=== PATIENT | male | born 1955 ===

== ENCOUNTER 2020-09-27 15:04 | Inpatient (IN) | payer MEDICARE, SELFPAY ==
[2020-09-27] VITALS (17 sets, daily range): BP systolic 92–190; BP diastolic 55–97; PULSE 78–115; RESP 16–39; TEMP 36.9–37.2; O2SAT 76–95; BMI 29.7
[2020-09-27 16:08] LABS: ABG PCO2 31.9 mmHg (35-45); ABG PH Result 7.42 (7.35-7.45); Alveolar-Arterial Oxygen Gradi 79.3 mmHg (5-10); Arterial Blood Gas Hematocrit 42.4 % (42-52); Base Excess ABG -3.1 mmol/L (-2.0-2.0); Blood Gas Allen Test Pos; Blood Gas Sample Site Radial, right; Blood Gas Sample Type Arterial; Carboxyhemoglobin 0.7 %THgb (0.4-20.1); HCO3 ABG 20.5 mmol/L (22-26); HGB O2 Sat 84.8 % (95-100); Ionized Calcium Level - ABG 1.1 mmol/L (1.1-1.4); Methemoglobin 0.8 % (0.4-1.5); Oxygen Device BIPAP; PO2 ABG 51.8 mmHg (80.0-100.0); Potassium Level - ABG 3.9 mmol/L (3.5-5.0); Total Hemoglobin 13.8 g/dL (14-18)
--- NOTE | 2020-09-27 16:16 | PM.HP ---
Providers/Chief Complaint Admitting Physician: Breanna Rodriguez History of Present Illness 65-year-old male with a past medical history significant for hypertension, dyslipidemia and diabetes mellitus who was recently diagnosed with COVID-19 infection requiring admission to [facility] on 09/26 for hypoxic respiratory failure. patient was reported to have oxygen saturation in low 70s for which he was placed on 4 L however in the next 24 hours he progressively worsened. Noted to have increased work of breathing and high-flow O2 requirements. He was initiated on remdesivir of which she had received a loading dose on 09/26 and 2nd day dose n 09/27 per tranfering physician. he was also empirically started on azithromycin and cefdinir. Chest x-ray had showed findings consistent with COVID-19 pneumonia. And laboratory workup in review appeared to be stable except D-dimer which was above 7. he was empirically started on Eliquis 5 mg oral twice daily. Due to progressive decline patient was transferred to [facility] ICU. Upon arrival patient was found to be hypoxic ( sats in 70s) and in respiratory distress. He was immediately placed on BiPAP with Fio2 of 100% after which he gradually improved. arterial blood gases were obtained which showed a pH of 7.42, pCO2 of 31.9, PO2 of 51.8 and bicarb 20.5. Laboratory workup on arrival was repeated which showed a WBC of 7.0, hemoglobin 12.8, hematocrit 38.9 and a platelet count of 151. sodium 130, potassium 4.0, chloride 95, bicarb 20, BUN 13 and creatinine is 0.7. Lactic acid of 1.7. LFTs were within normal limits. Procalcitonin was 0.55. CTA chest was ordered stat and pending at the time my dictation. Review of Systems General: Reports: ROS unobtainable due to medical condition Medications/Allergies Allergies Allergy/AdvReac Type Severity Reaction Status Date / Time No Known Allergies Allergy Verified 09/27/20 18:50 PFSH Acute PFSH: Social History (Updated 09/27/20 @ 19:42 by Breanna Rodriguez MD) Smoking and tobacco status: unknown if ever smoked Alcohol intake: never Substance/Drug Use: never Vitals/I&O/Wt Last Vital Signs Temp 98.7 F 09/27/20 15:05 Pulse 100 09/27/20 16:00 Resp 39 H 09/27/20 16:00 BP 150/82 09/27/20 16:00 Pulse Ox 92 09/27/20 16:00 Weight last 48 hrs Weight 96.615 kg Physical Exam Narrative: EXAM NARRATIVE: General- stable on BiPAP HEENT- grossly unremarkable Chest- slightly labored respiration, accessory muscle use CVS- sinus tachycardia Abdomen- appeared nondistended Extremities- no edema Data : 09/27/20 14:40 09/27/20 14:40 A&P Assessment and plan (1) Acute respiratory failure with hypoxia: Status: Acute (2) Pneumonia due to COVID-19 virus: Status: Acute (3) Dyslipidemia: Status: Acute (4) Diabetes mellitus: Status: Acute (5) Hypertension: Status: Acute Acute hypoxic respiratory failure due to COVID-19 pneumonia - Continue BiPAP at current settings however wean FiO2 as tolerated - Continue remdesivir 100 mg IV daily times additional 3 days - CT chest PE protocol ordered stat-pending - Initiate Decadron 6 mg IV daily times 10 days - Check ferritin, CRP in a.m. - Procalcitonin 0.55. - Unlikely to have secondary bacterial infection however reassess after CTA of chest - Will continue Eliquis 5 mg PO BID - ABG and chest x-ray in AM - Continue droplet precautions - Unfortunately patient is high risk for intubation Diabetes mellitus - Sliding scale insulin - QACHS BS checks - Will add lantus Hypertension - Norvasc 10 mg PO daily Gi ppx - Protonix DVT ppx - Eliquis 5 mg PO daily Attestations Medical Necessity Statement*: Anticipate over 2 midnights stay in hospital for treatment and evaluation of COVID-19 pneumonia. Time Spent in Patient Care: Greater than 35 minutes (>than 50% of time spent in counselling and/or direct pt care on unit). Critical Care Time: Critical Care Time (min): 55 Coding Level of Care Code Acute Hvac Operations Technician for [facility] Fwd Diagnoses Acute respiratory failure with hypoxia J96.01 Pneumonia due to COVID-19 virus U07.1; J12.89 Dyslipidemia E78.5 Diabetes mellitus E11.9 Hypertension I10
--- NOTE | 2020-09-27 16:17 | PC.NURSE ---
Pt arrived at 1425 per ambulance cart. Vital signs are: 1425 147/85 110 32 81% 1430 142/92 111 43 92% 1445 136/78 106 35 87% 1500 127/77 98 31 91 see worklist after this for vitals
[2020-09-27 16:56] LABS: Basophils % 0.3 %; Hematocrit 38.9 % (42.0-52.0); Hemoglobin 12.8 g/dL (11.7-16.6); Lymphocytes # 0.2 10^3/uL (0.8-4.8); Lymphocytes % 3.4 %; Mean Corpuscular HGB Conc 32.9 g/dL (30.0-36.0); Mean Corpuscular Hemoglobin 28.1 pg (28.0-34.0); Mean Corpuscular Volume 85.5 fL (80-94); Mean Platelet Volume 11.8 fL (7.4-10.4); Monocytes # 0.2 10^3/uL (0.2-0.9); Monocytes % 2.6 %; Neutrophils # 6.52 10^3/uL (1.8-7.7); Neutrophils % 93.4 %; Nucleated Red Blood Cells % 0 %; Platelet Count 151 10^3/cmm (130-400); Red Blood Count 4.55 10^6/uL (4.1-5.3); Red Cell Distribution Width 13.1 % (12.1-15.1)
[2020-09-27 17:08] LABS: INR 1.15 (0.8-1.2)
[2020-09-27 17:26] LABS: Slide Review Slide Review Perform
[2020-09-27 17:55] LABS: Lactic Sepsis W/Reflex 1.7 mmol/L (0.5-2.2)
[2020-09-27] MEDS: dexamethasone 4 mg/mL INJ 6 MG IVP (18:00)
[2020-09-27] MEDS: apixaban 5 mg Tablet PO (18:07)
[2020-09-27 18:24] LABS: Procalcitonin 0.55 ng/mL (0-0.5)
[2020-09-27 18:35] LABS: Alanine Aminotransferase 35 U/L (0-41); Albumin Level 3.2 g/dL (3.5-5.2); Alkaline Phosphatase 76 IU/L (40-130); Aspartate Amino Transferase 39 U/L (0-40); Blood Urea Nitrogen 13 mg/dL (8-23); Calcium 8.9 mg/dL (8.5-10.5); Carbon Dioxide 20 mmol/L (22-29); Chloride 95 mmol/L (98-107); Globulin 3.2 g/dL (1.3-4.6); Glomerular Filtration Rate 113.5 mL/min (90-130); Glucose 256 mg/dL (65-115); Osmolality Calculated 279 mOsm/kg (285-295); Sodium 130 mmol/L (136-145); Total Bilirubin 0.5 mg/dL (0.15-1.2); Total Protein 6.4 g/dL (6.6-8.7)
[2020-09-27 18:38] LABS: Glucose Point of Care 174 mg/dL (70-110)
[2020-09-27] MEDS: rocuronium 10 mg/mL INJ 5mL 120 MG IV (20:05)
[2020-09-27] MEDS: propofol 1,000 MG/100 ML INJ 20.3 MG IV (20:15)
--- NOTE | 2020-09-27 20:15 | XRR_ITS ---
PROCEDURE INFORMATION: Exam: XR Chest, 1 View Exam date and time: 09/27/2020 9:44 PM Age: 65 years old Clinical indication: Device placement; Ett placement (vent status); Additional info: Intubate TECHNIQUE: Imaging protocol: XR of the chest Views: 1 view. COMPARISON: No relevant prior studies available. FINDINGS: Tubes, catheters and devices: An endotracheal tube is present with its tip 2 cm above the tiburcio. Lungs: There is bilateral pulmonary consolidation especially on the left side and predominantly in the lung bases. This may represent a bilateral pneumonia. Pleural space: Unremarkable. No pleural effusion. No pneumothorax. Heart/Mediastinum: Unremarkable. No cardiomegaly. Bones/joints: Unremarkable. XR/XR chest 1V portable [id number] IMPRESSION: 1. The tip of the endotracheal tube is 2 cm above the tiburcio. 2. Bilateral pulmonary consolidation especially on the left side most likely due to bilateral pneumonia.
--- NOTE | 2020-09-27 20:46 | ECG_ITS ---
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 Measurements Intervals [place] Rate: 109 P: 50 UT: 133 QRS: -1 QRSD: 94 T: 24 QT: 302 QTc: 407 Interpretive Statements SINUS TACHYCARDIA POSSIBLE LEFT ATRIAL ENLARGEMENT [-0.1mV P WAVE IN V1/V2] No previous ECG available for comparison Electronically Signed On 10-01-2020 10:11:17 DESK LIEUTENANT by Ivet Whitehead M.D. [id number]
[2020-09-27 21:00] LABS: Glucose Point of Care 213 mg/dL (70-110)
[2020-09-27 21:16] LABS: ABG PCO2 60.2 mmHg (35-45); ABG PH Result 7.21 (7.35-7.45); PO2 ABG 54.2 mmHg (80.0-100.0)
[2020-09-27 21:17] LABS: Base Excess ABG -4.5 mmol/L (-2.0-2.0); Blood Gas Allen Test positive; Blood Gas Vent Mode PC; HCO3 ABG 24.4 mmol/L (22-26); Oxygen Device vent; Oxygen Saturation ABG 78.8; Potassium Level - ABG 4.1 mmol/L (3.5-5.0)
[2020-09-27 21:18] LABS: Arterial Blood Gas Hematocrit 43.3 % (42-52); Carboxyhemoglobin 0.8 %THgb (0.4-20.1)
[2020-09-27 21:31] LABS: Glucose Point of Care 279 mg/dL (70-110)
--- NOTE | 2020-09-27 21:47 | PC.NURSE ---
New Orders: MD Simeon gave v/o for Fentanyl drip to be increased to 100mcg, then again to 150mcg. Propofol drip was to be increased up to 50, and a Versed drip was initiated at 2mg/hr to achieve deep sedation.
--- NOTE | 2020-09-27 23:00 | XRR_ITS ---
PROCEDURE INFORMATION: Exam: XR Chest, 1 View Exam date and time: 09/27/2020 11:03 PM Age: 65 years old Clinical indication: Device placement; Other: Central line placement; Patient HX: Covid TECHNIQUE: Imaging protocol: XR of the chest Views: 1 view. COMPARISON: CR XR chest 1V portable [id number] 09/27/2020 8:46 PM FINDINGS: Tubes, catheters and devices: An endotracheal tube is present in satisfactory position. A right jugular venous catheter is present with its tip projecting on the SVC. Lungs: The left side of the chest is not completely projected on the film. Extensive infiltrates are present in the lung bases. . Pleural space: No pleural effusion or pneumothorax is seen. Heart/Mediastinum: Unremarkable. No cardiomegaly. Bones/joints: Unremarkable. Soft tissues: Otherwise unremarkable XR/XR chest 1V portable [id number] IMPRESSION: 1. Satisfactory position of the endotracheal tube and central venous catheter. 2. Bibasilar pulmonary infiltrates similar to previous study.
[2020-09-28] VITALS (55 sets, daily range): BP systolic 83–115; BP diastolic 49–68; PULSE 66–85; RESP 18–471; TEMP 36.6–37.2; O2SAT 83–98; BMI 29.7
[2020-09-28] MEDS: cisatracurium 100 MG in sodium chloride 0.9% 50 ML 11.6 MG IV ×2 (00:13→20:06)
[2020-09-28] MEDS: propofol 1,000 MG/100 ML INJ 14.5 MG IV ×4 (00:14→20:29)
--- NOTE | 2020-09-28 00:14 | PM.CONSULT ---
Providers/Reason For Consult Consulting Physican/Specialty*: Shabbir Hendrix MD/ Pulmonary Critical care Reason for Consult*: ARDS secondary to hypoxic respiratory failure due to COVID-19 pneumonia Requesting Ganeshan: Hanna Dewitt Attending Physician: Breanna Rodriguez History of Present Illness History of Present Illness Ashutosh Brandt is a 65 year old male past medical history of hypertension, dyslipidemia, diabetes mellitus recently diagnosed with COVID-19 infection initially admitted to [facility] on 09/26/2020 for hypoxic respiratory failure, requiring 4 L nasal cannula. Patient deteriorated over the next 24 hours and noted to have increased work of breathing and increasing high flow oxygen requirements. He was started on remdesivir on 09/26/2020 and transferred to [facility] on 09/27/2020. Initial labs normal except D-dimer 507 and so started on Eliquis 5 mg twice daily. Upon arrival to [facility] ED patient was found to be hypoxic with saturations in 70s and was after being on arrival for BiPAP he was intubated this evening. Pulmonary critical care consult called for vent management due to critical nature of ARDS secondary to hypoxic respiratory failure. Patient is on pressure control ventilation with PIP 30, plateau pressures 28, PEEP of 12, respiratory rate 14 and sedated with propofol 30 and fentanyl 50 GTT. Patient was clearly overbreathing the vent and so increased sedation propofol to 50, fentanyl to 150 and later added Versed 3 mg sequentially. Meanwhile blood pressure maps dropped to 60s. Placed a right IJ central line and right radial arterial line and started on Levophed. Once blood pressure stabilized with maps greater than 65 started weaning down propofol. Meanwhile patient saturations were ranging between 75-85 on 100% FiO2 and PEEP of 16. Decision was made to adequately sedate and paralyzed with Nimbex drip and prone the patient. Review of Systems General: Reports: 10 or more systems reviewed and unremarkable except in HPI and below, ROS unobtainable due to endotracheal tube, ROS unobtainable due to medical condition and ROS unobtainable due to mental status Meds/Allergies Home Medications and Allergies Home Medications Medication Instructions Recorded Confirmed Last Taken Type amlodipine 10 mg PO DAILY 09/28/20 09/28/20 Unknown History atorvastatin 10 mg PO DAILY 09/28/20 09/28/20 Unknown History losartan 50 mg PO DAILY 09/28/20 09/28/20 Unknown History metformin 1,000 mg PO BID 09/28/20 09/28/20 Unknown History methylprednisolone See Rx Instructions .ROUTE .COMPLEX 09/28/20 09/28/20 Unknown History Allergies Allergy/AdvReac Type Severity Reaction Status Date / Time No Known Allergies Allergy Verified 09/27/20 18:50 Current Medications Current Medications Generic Name Dose Route Start Last Admin Trade Name Freq PRN Reason Stop Dose Admin Amlodipine Besylate 10 mg 09/27/20 20:00 09/27/20 20:45 Amlodipine 10 Mg Tablet PO Not Given DAILY JAYSON Apixaban 5 mg 09/27/20 18:00 09/27/20 18:07 Apixaban 5 Mg Tablet PO 5 mg BID JAYSON Administration Dexamethasone 6 mg 09/27/20 16:30 09/27/20 18:00 Dexamethasone 4 Mg/Ml Inj IVP 10/07/20 16:29 6 mg Q24H JAYSON Administration Propofol 1,000 mg in 100 mls @ 0 mls/hr 09/27/20 20:00 09/27/20 21:40 Diprivan IV 50 mcg/kg/min .Q0M JAYSON 29 mls/hr Titration Protocol Per Protocol Fentanyl 1,000 mcg/ Sodium 100 mls @ 0 mls/hr 09/27/20 20:30 09/27/20 21:43 Chloride IV 150 mcg/hr .Q0M JAYSON 15 mls/hr Titration Protocol Per Protocol Midazolam HCl 100 mg/ Sodium 100 mls @ 0 mls/hr 09/27/20 21:45 09/27/20 22:08 Chloride IV 2 mg/hr .Q0M JAYSON 2 mls/hr Administration Protocol Per Protocol Norepinephrine Bitartrate 4 mg 254 mls @ 0 mls/hr 09/27/20 22:15 09/27/20 22:20 / Dextrose IV 2 mcg/min .Q0M JAYSON 7.6 mls/hr Administration Protocol Per Protocol Cisatracurium Besylate 100 mg/ 100 mls @ 0 mls/hr 09/27/20 22:30 09/28/20 00:13 Sodium Chloride IV 2 mcg/kg/min CONT JAYSON 11.6 mls/hr Administration Protocol Titrate Insulin Aspart 0 unit 09/27/20 18:00 09/27/20 21:04 Insulin Aspart 100 Unit/1 Ml SUBCUT 6 unit WM&BEDTIME JAYSON Administration Protocol PFSH Acute PFSH: Social History Smoking and tobacco status: unknown if ever smoked Alcohol intake: never Substance/Drug Use: never Vitals/I&O/Wt Last Vital Signs Temp 98.4 F 09/27/20 17:00 Pulse 97 09/27/20 22:00 Resp 20 H 09/27/20 22:26 BP 93/55 09/27/20 22:00 Pulse Ox 76 L 09/27/20 22:00 09/27/20 09/27/20 09/28/20 14:59 22:59 06:59 Intake Total 93.966 / 93.966 Output Total 450 / 450 Balance -356.034 / -356.034 Weight last 48 hrs Weight 213 lb 6.4 oz Weight 213 lb Physical Exam Narrative: EXAM NARRATIVE: PHYSICAL EXAM: General: lying in bed, sedated and intubated. HEENT:NCAT, PERRLA, EOMI Neck: Supple Lungs: Clear, Heart: s1/s2, RRR Abd: soft, NT, ND, BS + Normoactive Extremities: No edema OUTBOUND TELEMARKETER: sedated and limited OUTBOUND TELEMARKETER exam possible. SKIN: no rash LDA: # CVC: Right IJ 09/27/2020 # Turner: 09/26/2020 # A line: Right radial art line 09/27/2020 A&P Assessment and plan (1) Pneumonia due to COVID-19 virus: Status: Acute (2) Acute respiratory failure with hypoxia: Status: Acute (3) Acute respiratory distress syndrome (ARDS) due to 2019 novel coronavirus: Status: Acute (4) Diabetes mellitus: Status: Acute Qualifiers: Diabetes mellitus complication status: with other specified complication Diabetes mellitus long-term insulin use: unspecified watermelon inspector insulin use status Diabetes mellitus type: type 2 Qualified Code(s): E11.69 - Type 2 diabetes mellitus with other specified complication (5) Hypertension: Status: Acute Qualifiers: Hypertension type: unspecified Qualified Code(s): I10 - Essential (primary) hypertension (6) Difficult ventilator weaning: Status: Acute 65 year old male past medical history of hypertension, dyslipidemia, diabetes mellitus recently diagnosed with COVID-19 infection admitted to viral ICU for management of acute hypoxemic respiratory failure secondary to acute respiratory distress syndrome due to COVID-19 pneumonia requiring intubation and mechanical ventilation. NEURO: -Currently deeply sedated on drips fentanyl 150 MCG/hr, Versed 2 mg/hr, propofol 10 mg/HR, -Paralyzed with Nimbex 1 mg/h drip -Currently in prone positioning -with cushioning in all pressure areas and every 2 hour head turning and extremities PULM: #Acute hypoxic and hypercapneic respiratory failure secondary to ARDS due to COVID pna -Intubated on 09/27/2020 -Post intubation patient was saturating in 70s even on 100% FiO2 and PEEP 14 -Increased sedation and paralyzed and prone -Most recent ABG on pressure control mode 30 PIP, PEEP 14, rate 22, inspiratory time 0.9 seconds and FiO2 70% -7.2 8/48/77/30 6/94% -ABG suggestive of respiratory acidosis due to very noncompliant lungs-adjusting ventilator setting as best as we can to keep plateau pressures less than 30 with permissive hypercapnia -Patient will be turned supine after 16 hours of proning -Recommended continuing paralytics and deep sedation and plan for 2 more proning sessions of 16 hours each alternating with 8 hours of supine sessions -CXR Patchy multifocal airspace disease bilaterally. No effusion. No pneumothorax -Elevated ferritin, please send other inflammatory markers ESR, LDH, CRP and repeat all 4 every 2 days to trend markers of inflammation -Currently on remdesivir and dexamethasone daily -DuoNeb nebulization every 6 hours CVS: -Shock secondary to COVID-19 pneumonia -Currently on Levophed 1 -Recommended to taper down propofol and turn off Levophed if possible -Monitor heart rate and blood pressure -Please send for BNP and echo GI: -N.p.o. -Protonix 40 mg daily for GI prophylaxis RENAL: -Renal functions normal -Electrolytes within normal limits -Send for lactic acid and CK -I/O/N 320/950/-628 -adequate urine output 0.41 mL/kg/h -Continue turner cath -Avoid nephrotoxins -Monitor BUN/creatinine and electrolytes and supplement accordingly to keep k>4, Mg >2 HEM: H&H stable Plts stable,will trend Coags stable ENDO: #Diabetes mellitus -Uncontrolled sugars especially after starting steroids -On scale coverage requiring 30 units in last 8 hours -Would recommend IV insulin and check sugars every 1 hour -Alternately give 10 mg Lantus twice daily with high-dose scale coverage and check sugars every 6 hours ID: #Severe sepsis secondary to COVID pna -WBC 10 K, afebrile -Procalcitonin 0.55 -If patient spikes fever or WBC worsens please send for pancultures -BC,UA,Sputum culture and start on broad-spectrum antibiotics vancomycin and cefepime. Prognosis: Very critical Hospitalist to update family Consult Attestations Medical Necessity Statement: acute hypoxemic respiratory failure requiring intubation and mechanical ventilation secondary to acute respiratory distress syndrome due to COVID-19 pneumonia. Time Spent in Patient Care: Greater than 35 minutes (>than 50% of time spent in counselling and/or direct pt care on unit). Critical Care Time: Critical Care Time (min): 45 Coding Level of Care Code New Pt Acute Electronics Specialist for [facility] Fwd Patient Type New History Comprehensive Exam Comprehensive Medical Decision Making High Complexity Diagnoses Pneumonia due to COVID-19 virus U07.1; J12.89 Acute respiratory failure with hypoxia J96.01 Acute respiratory distress syndrome (ARDS) due to 2019 novel coronavirus U07.1; J80 Diabetes mellitus E11.69 Diabetes mellitus complication status: with other specified complication Diabetes mellitus watermelon inspector insulin use: unspecified long-term insulin use status Diabetes mellitus type: type 2 Hypertension I10 Hypertension type: unspecified Difficult ventilator weaning Z99.11 Time Spent (min) 45
[2020-09-28] MEDS: lidocaine 1% INJ 20 mL INTRADERMA (00:16)
[2020-09-28 00:22] LABS: ABG PCO2 48.7 mmHg (35-45); ABG PH Result 7.26 (7.35-7.45); Arterial Blood Gas Hematocrit 38.6 % (42-52); Base Excess ABG -5.4 mmol/L (-2.0-2.0); Blood Gas Allen Test Pos; HCO3 ABG 21.8 mmol/L (22-26); PO2 ABG 55.8 mmHg (80.0-100.0)
[2020-09-28 00:23] LABS: Blood Gas Operator Identificat HARKR; Blood Gas Vent Mode PC
--- NOTE | 2020-09-28 00:35 | PM.ACPR ---
Procedure/Consent Procedure Narrative: Procedure: Arterial line placement Indication: Need for invasive BP monitoring Consent: Emergent Site: Right radial artery A line Anesthesia: 5 cc 1% lidocaine without epinephrine Description: Area prepped with chlorhexidine and draped in a sterile manner. Catheter inserted using Seldinger technique. Arterial waveform obtained. Ultrasound guidance used: yes. EBL: 5 cc Complications:None Shabbir Swansonr MD Pulmonary, Critical Care Medicine Acute Procedures Arterial Line: Time out performed: Yes
--- NOTE | 2020-09-28 00:35 | PM.ACPR ---
Procedure/Consent Procedure Narrative: Procedure: Central venous access placement Indication: Shock , Vasopressors infusion Hypertrichologist(s): Shabbir Swansonr Consent: Emergent Yes Time out called. [place] precautions applied. Site: right Internal Jugular Vein Catheter: 7 Fr, 20 cm, Triple Lumen Sutured at: 16 cm Anesthesia: 8 cc 1% lidocaine without epinephrine Description: Area prepped with chlorhexidine and draped in a universal sterile manner. The vessel anatomy and patency was examined by ultrasound probe which was covered with sterile probe cover. The needle was inserted into the vessel under ultrasound guidance, after venous blood aspirated the guidewire was inserted through the needle and kept in situ while the needle was removed. Placement of guidewire in the vein and in relation to the adjacent artery was verified by ultrasound. Catheter was then advanced over the guidewire after dilation and guidewire successfully removed.The catheter was sutured to the skin and sterile dressing with chlorhexidine patch placed. Number of attempts: 1 Dilator applied: yes, number of Dilations: 1 Placement Verified by: Blood draw from all ports and Ultrasound exam and Chest Xray EBL: 10 cc Complications: None Ultrasound guidance used: Yes. Images saved: Yes Transverse view longitudinal view longitudinal view compression
--- NOTE | 2020-09-28 00:41 | PM.ACPR ---
Procedure/Consent Procedure Narrative: Was intubated as he was tachypneic for impending respiratory failure, his O2 saturation was 88 to 92% on 100% BiPAP FiO2 Consent was taken from the patient, was updated, FaceTime done with his as well Acute Procedures Intubation: Time out performed: Yes Sedative: etomidate Mg given: 20 Paralytic: rocuronium Mg given: 120 Laryngoscope: fiber optic video scope ET tube size: 7.5 ET tube uncuffed: Yes Tube secured depth (cm): 24 Tube secured location: teeth Tube placement confirmation: visualized tube passing through cords, equal breath sounds bilaterally and no breath sounds over epigastrium Patient tolerated procedure: well
--- NOTE | 2020-09-28 01:12 | PC.NURSE ---
1929- patient was desating on bipap 100% fio2. Dr Dewitt called.2007- patients called spoke with Dr Dewitt patient intubated. Time out preformed at 1999. 2034- patient continues to desat in the 80s called Dr Dewitt patient hypertensive , orders received. 2099- called to updated on patient condition. Dr Hendrix and Manisha RN arrived at 2215 central line time out at 2244, line placed as well as ART line. Patient continued to Desated Dr Hendrix ordered proning and nimbex with train of four. 0100- patient successfully proned all tubes intact. notified of patient condition at 0115. Patint sating 93% bp 95/54, resp18/min temp 98.9 axillary.
--- NOTE | 2020-09-28 01:21 | NUR.SHIFT ---
New Orders: Nimbex 2mg with titration by protocol for paralytic properties. Norepinephrine drip titration based on MAP and overall BP. RN to place turner catheter. 10mL instilled into balloon with immediate 300mL urine output of clear bright yellow urine.
--- NOTE | 2020-09-28 01:25 | PC.NURSE ---
Verbal Consent: Based on increased o2 demand and decreasing SPO2 status of 73% while on Bipap at 100% FIO2. Esdras PERALTA installation manager notified of patient's condition. Decision was then made that it was best for intubation to be completed in attempts to achieve optimal O2 status. MD came to pt's bedside to update patient on overall status, and need for intubation as an emergent action. Patient verbalized understandment. This RN spoke with pt's spouse to update her on the plan of action moving forward to which she gave verbal understandment of the necessity for vent placement. Pt was A&O4 during time of discussion and this RN was able to allow pt to video call before intubation was initiated, with his also speaking to the MD via [employer]. Time out was performed. 7 / ET placed 24 @ Lip. Portable XR to confirm placement. Noel placed. New orders placed in chart.
--- NOTE | 2020-09-28 03:36 | PC.NURSE ---
Unable to insert NG tube.
[2020-09-28 04:42] LABS: ABG PCO2 47.1 mmHg (35-45); ABG PH Result 7.28 (7.35-7.45); Arterial Blood Gas Hematocrit 35.7 % (42-52); Base Excess ABG -4.9 mmol/L (-2.0-2.0); Blood Gas Sample Site ARTLINE; Blood Gas Sample Type Arterial; HCO3 ABG 21.9 mmol/L (22-26); Oxygen Device VENT; PO2 ABG 89.1 mmHg (80.0-100.0)
[2020-09-28 04:42] LABS: Basophils % 0.1 %; Hematocrit 35.1 % (42.0-52.0); Hemoglobin 11.6 g/dL (11.7-16.6); Lymphocytes # 0.3 10^3/uL (0.8-4.8); Lymphocytes % 3.1 %; Mean Corpuscular Hemoglobin 28.6 pg (28.0-34.0); Mean Corpuscular Volume 86.7 fL (80-94); Mean Platelet Volume 10.8 fL (7.4-10.4); Monocytes # 0.4 10^3/uL (0.2-0.9); Neutrophils # 9.95 10^3/uL (1.8-7.7); Neutrophils % 92.3 %; Nucleated Red Blood Cells % 0 %; Platelet Count 169 10^3/cmm (130-400); Red Blood Count 4.05 10^6/uL (4.1-5.3); Red Cell Distribution Width 13.2 % (12.1-15.1); White Blood Count 10.8 10^3/uL (4.0-10.0)
[2020-09-28 05:10] LABS: Alanine Aminotransferase 32 U/L (0-41); Albumin Level 2.6 g/dL (3.5-5.2); Alkaline Phosphatase 66 IU/L (40-130); Anion Gap 15.5 (5-19); Aspartate Amino Transferase 35 U/L (0-40); Blood Urea Nitrogen 25 mg/dL (8-23); Calcium 7.9 mg/dL (8.5-10.5); Carbon Dioxide 22 mmol/L (22-29); Chloride 96 mmol/L (98-107); Globulin 2.9 g/dL (1.3-4.6); Glucose 423 mg/dL (65-115); Osmolality Calculated 290 mOsm/kg (285-295); Potassium 4.5 mmol/L (3.5-5.1); Sodium 129 mmol/L (136-145); Total Bilirubin 0.6 mg/dL (0.15-1.2); Total Protein 5.5 g/dL (6.6-8.7)
[2020-09-28] MEDS: remdesivir 100 MG in sodium chloride 0.9% (100 ml) 100 ML IV (05:47)
[2020-09-28 05:52] LABS: Ferritin 1976 ng/mL (30-400)
--- NOTE | 2020-09-28 07:00 | XRR_ITS ---
PROCEDURE INFORMATION: Exam: XR Chest, 1 View Exam date and time: 09/28/2020 9:35 PM Age: 65 years old Clinical indication: Shortness of breath; Patient HX: Covid 19 line placement; Additional info: Pneumonia TECHNIQUE: Imaging protocol: XR of the chest Views: 1 view. COMPARISON: CR XR chest 1V portable [id number] 09/27/2020 11:14 PM FINDINGS: Tubes, catheters and devices: Intubation with tip 4.9 cm above the tiburcio. Right IJ triple-lumen catheter with tip over the mid SVC. NG tube with tip in the distal stomach or proximal duodenum. Lungs: Patchy dense ground-glass opacities in the central and lower lungs are slightly improved in the left lung and unchanged on the right. Pleural space: Unremarkable. No pleural effusion. No pneumothorax. Heart/Mediastinum: Unremarkable. No cardiomegaly. Bones/joints: Unremarkable. XR/XR chest 1V portable [id number] IMPRESSION: 1. Multilobar pneumonia, slightly improved in the left lung.
[2020-09-28 07:23] LABS: Glucose Point of Care 405 mg/dL (70-110)
--- NOTE | 2020-09-28 08:36 | PC.PHAR ---
pt unable to verify medications due to being intubated-pts is unsure of all his medications-pts states the pt take care of his own medications-entered medications are what has been filled recently that ext med history shows
--- NOTE | 2020-09-28 08:38 | PC.NURSE ---
Neuro check Patient sedated and paralyzed. Bis monitor 50-55.
--- NOTE | 2020-09-28 08:48 | PC.NURSE ---
Repositioned Patient is to be prone until 5pm today. floated arms, legs, and turned face at 0830. RT repositioned tube.
[2020-09-28 11:10] LABS: ABG PH Result 7.21 (7.35-7.45); Arterial Blood Gas Hematocrit 36.5 % (42-52); Base Excess ABG -4.4 mmol/L (-2.0-2.0); Blood Gas Allen Test Pos; Blood Gas Sample Type Arterial; Carboxyhemoglobin 0.7 %THgb (0.4-20.1); HCO3 ABG 24.2 mmol/L (22-26); HGB O2 Sat 96.5 % (95-100); Ionized Calcium Level - ABG 1.1 mmol/L (1.1-1.4); Oxygen Saturation ABG 98.1; Potassium Level - ABG 4.5 mmol/L (3.5-5.0); Total Hemoglobin 11.9 g/dL (14-18)
[2020-09-28 11:11] LABS: Alveolar-Arterial Oxygen Gradi 53.7 mmHg (5-10); Blood Gas Operator Identificat MONRO; Blood Gas Sample Site Not specified; Oxygen Device VENT
[2020-09-28 11:12] LABS: ABG PCO2 60.3 mmHg (35-45)
[2020-09-28 11:44] LABS: Glucose Point of Care 393 mg/dL (70-110)
--- NOTE | 2020-09-28 13:06 | PC.PT ---
Hold evaluation until 09/29. Pt. was on BiPAP and prone when therapist attempted visit.
[2020-09-28] MEDS: ipratropium-albuterol 3 mL Neb INHALATION ×2 (15:50→19:49)
--- NOTE | 2020-09-28 16:41 | PM.PN ---
Subjective Subjective: Interval history: 65-year-old male with a past medical history significant for hypertension, dyslipidemia and diabetes mellitus who was recently diagnosed with COVID-19 infection requiring admission to [facility] on 09/26 for hypoxic respiratory failure. patient was reported to have oxygen saturation in low 70s for which he was placed on 4 L however in the next 24 hours he progressively worsened. Noted to have increased work of breathing and high-flow O2 requirements. He was initiated on remdesivir of which she had received a loading dose on 09/26 and 2nd day dose n 09/27 per tranfering physician. he was also empirically started on azithromycin and cefdinir. Chest x-ray had showed findings consistent with COVID-19 pneumonia. And laboratory workup in review appeared to be stable except D-dimer which was above 7. he was empirically started on Eliquis 5 mg oral twice daily. Due to progressive decline patient was transferred to [facility] viral ICU. Upon arrival patient was found to be hypoxic ( sats in 70s) and in respiratory distress. He was immediately placed on BiPAP with Fio2 of 100% after which he gradually improved. arterial blood gases were obtained which showed a pH of 7.42, pCO2 of 31.9, PO2 of 51.8 and bicarb 20.5. Laboratory workup on arrival was repeated which showed a WBC of 7.0, hemoglobin 12.8, hematocrit 38.9 and a platelet count of 151. sodium 130, potassium 4.0, chloride 95, bicarb 20, BUN 13 and creatinine is 0.7. Lactic acid of 1.7. LFTs were within normal limits. Procalcitonin was 0.55. Subjective 11/29 Patient was intuabted on placed on vent. Started on sedation in addition to nimbex. Was proned. Pulmonary consulted. Vitals/I&O/Wt Last Vital Signs Temp 98.4 F 09/28/20 14:00 Pulse 81 09/28/20 15:49 Resp 22 H 09/28/20 15:49 BP 100/57 09/28/20 14:45 Pulse Ox 92 09/28/20 15:49 09/28/20 09/28/20 09/28/20 06:59 14:59 22:59 Intake Total 227.315 / 321.281 344.083 / 344.083 Output Total 200 / 950 Balance 27.315 / -628.719 344.083 / 344.083 Weight last 48 hrs Weight 96.797 kg Weight 96.797 kg Weight 96.615 kg Physical Exam Narrative: EXAM NARRATIVE: General - Intubated on MV HEENT- ET tube Chest - vented CVS- sinus tachycardia Abdomen- appeared nondistended Extremities- no edema Urinary Catheter Management^: Noel: Cath Placed During This Visit: yes Reason for Continuing Indwelling Catheter: Accurate Measurement of Urinary Output in Critically Ill Patients Urinary Catheter Date of Insertion: 09/27/20 Urinary Catheter Time of Insertion: 20:00 Data : 09/28/20 03:55 09/28/20 03:55 A&P Assessment and plan (1) Acute respiratory failure with hypoxia: Status: Acute (2) Pneumonia due to COVID-19 virus: Status: Acute (3) Dyslipidemia: Status: Acute (4) Diabetes mellitus: Status: Acute Qualifiers: Diabetes mellitus complication status: with other specified complication 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 use status Diabetes mellitus type: type 2 Qualified Code(s): E11.69 - Type 2 diabetes mellitus with other specified complication (5) Hypertension: Status: Acute Qualifiers: Hypertension type: unspecified Qualified Code(s): I10 - Essential (primary) hypertension Acute respiratory distress syndrome due to COVID-19 pneumonia - Pulmonary on consult - Sedation - Paralytic - Remdesivir - Proning - Am CBC, CMP - Pro-calcitonin, CRP, D-dimer, Ferritin in am - Chest x-ray in am - ABG in am - Echo ordered Uncontrolled Diabetes mellitus with hyperglycemia - Insulin gtt - Q1hr BS checks - Repeat labs in AM - BS goals 140 - 180 Hypertension currently hypotensive - Continue levofed Gi ppx - Protonix DVT ppx - Eliquis 5 mg PO daily Attestations Medical Necessity Statement*: Critical condition will require further hospitalization Time Spent in Patient Care: Greater than 35 minutes (>than 50% of time spent in counselling and/or direct pt care on unit). 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
[2020-09-28 17:11] LABS: Glucose Point of Care 323 mg/dL (70-110)
[2020-09-28 17:50] LABS: NT Pro B Type Natriuretic Pept 616 pg/mL (0-125)
[2020-09-28] MEDS: insulin regular-human 250 UNIT in sodium chloride 0.9% 250 ML 7 UNIT IV (18:00)
[2020-09-28 18:43] LABS: Glucose Point of Care 314 mg/dL (70-110)
[2020-09-28] MEDS: dexamethasone 4 mg/mL INJ 6 MG IVP (19:23)
[2020-09-28] MEDS: apixaban 5 mg Tablet PO (19:24)
--- NOTE | 2020-09-28 19:58 | PC.NURSE ---
Patient placed supine at 1730. Continuous BIS monitoring on and working, reading between 50-60. Train of 4 completed multiple times, showing proper sedation and neuro function.
[2020-09-28 20:00] LABS: Glucose Point of Care 299 mg/dL (70-110)
[2020-09-28 21:06] LABS: Glucose Point of Care 268 mg/dL (70-110)
[2020-09-29] VITALS (90 sets, daily range): BP systolic 90–119; BP diastolic 50–70; PULSE 72–93; RESP 18–22; TEMP 36.1–36.9; O2SAT 85–99; BMI 29.7
[2020-09-29] MEDS: ipratropium-albuterol 3 mL Neb INHALATION ×6 (00:10→21:00)
[2020-09-29] MEDS: propofol 1,000 MG/100 ML INJ 14.5 MG IV ×2 (03:49→09:44)
[2020-09-29 04:03] LABS: Blood Gas Sample Site Radial, right; Blood Gas Sample Type Arterial; Ionized Calcium Level - ABG 1.1 mmol/L (1.1-1.4); Oxygen Device VENT
[2020-09-29 04:30] LABS: ABG PH Result 7.33 (7.35-7.45)
[2020-09-29 04:31] LABS: ABG PCO2 43.2 mmHg (35-45); Base Excess ABG -3.3 mmol/L (-2.0-2.0); HCO3 ABG 22.6 mmol/L (22-26)
[2020-09-29 04:32] LABS: Oxygen Saturation ABG 93
[2020-09-29 04:33] LABS: Potassium Level - ABG 3.7 mmol/L (3.5-5.0)
[2020-09-29 04:34] LABS: Arterial Blood Gas Hematocrit 35.6 % (42-52)
[2020-09-29 04:35] LABS: HGB O2 Sat 91.6 % (95-100); Total Hemoglobin 11.6 g/dL (14-18)
[2020-09-29 04:36] LABS: Carboxyhemoglobin 0.6 %THgb (0.4-20.1)
[2020-09-29 04:53] LABS: Basophils % 0.1 %; Hematocrit 33.7 % (42.0-52.0); Hemoglobin 11.3 g/dL (11.7-16.6); Lymphocytes # 0.3 10^3/uL (0.8-4.8); Lymphocytes % 3.1 %; Mean Corpuscular HGB Conc 33.5 g/dL (30.0-36.0); Mean Corpuscular Hemoglobin 28.7 pg (28.0-34.0); Mean Corpuscular Volume 85.5 fL (80-94); Mean Platelet Volume 11.8 fL (7.4-10.4); Monocytes # 0.5 10^3/uL (0.2-0.9); Monocytes % 5.2 %; Neutrophils # 7.86 10^3/uL (1.8-7.7); Neutrophils % 91.1 %; Nucleated Red Blood Cells % 0 %; Platelet Count 173 10^3/cmm (130-400); Red Blood Count 3.94 10^6/uL (4.1-5.3); Red Cell Distribution Width 13.1 % (12.1-15.1); White Blood Count 8.6 10^3/uL (4.0-10.0)
[2020-09-29] MEDS: remdesivir 100 MG in sodium chloride 0.9% (100 ml) 100 ML IV (05:12)
[2020-09-29 05:28] LABS: D Dimer 13.04 ug/mIFEU (0-0.59)
[2020-09-29] MEDS: cisatracurium 100 MG in sodium chloride 0.9% 50 ML 11.6 MG IV ×2 (05:44→14:51)
[2020-09-29 06:11] LABS: Alanine Aminotransferase 30 U/L (0-41); Albumin Level 2.5 g/dL (3.5-5.2); Alkaline Phosphatase 59 IU/L (40-130); Anion Gap 17.8 (5-19); Aspartate Amino Transferase 34 U/L (0-40); Blood Urea Nitrogen 51 mg/dL (8-23); C Reactive Protein 188.8 mg/L (0.0-4.9); Calcium 7.9 mg/dL (8.5-10.5); Carbon Dioxide 20 mmol/L (22-29); Chloride 99 mmol/L (98-107); Glomerular Filtration Rate 30.3 mL/min (90-130); Glucose 172 mg/dL (65-115); Osmolality Calculated 294 mOsm/kg (285-295); Potassium 3.8 mmol/L (3.5-5.1); Sodium 133 mmol/L (136-145); Total Bilirubin 0.4 mg/dL (0.15-1.2); Total Protein 5.5 g/dL (6.6-8.7)
[2020-09-29 06:27] LABS: Glucose Point of Care 121 mg/dL (70-110)
[2020-09-29 06:27] LABS: Glucose Point of Care 138 mg/dL (70-110)
[2020-09-29 06:27] LABS: Glucose Point of Care 151 mg/dL (70-110)
[2020-09-29 06:27] LABS: Glucose Point of Care 222 mg/dL (70-110)
[2020-09-29 06:27] LABS: Glucose Point of Care 149 mg/dL (70-110)
[2020-09-29 06:27] LABS: Glucose Point of Care 173 mg/dL (70-110)
[2020-09-29 06:27] LABS: Glucose Point of Care 189 mg/dL (70-110)
[2020-09-29 06:27] LABS: Glucose Point of Care 202 mg/dL (70-110)
[2020-09-29 06:27] LABS: Glucose Point of Care 154 mg/dL (70-110)
[2020-09-29 06:48] LABS: Lactate Dehydrogenase 439 U/L (135-225)
[2020-09-29 07:04] LABS: Ferritin 3574 ng/mL (30-400)
[2020-09-29 07:19] LABS: Glucose Point of Care 189 mg/dL (70-110)
[2020-09-29 08:20] LABS: Glucose Point of Care 181 mg/dL (70-110)
[2020-09-29 09:44] LABS: Glucose Point of Care 166 mg/dL (70-110)
[2020-09-29] MEDS: zinc gluconate 50 mg Tablet PO (09:44)
[2020-09-29] MEDS: apixaban 5 mg Tablet PO ×2 (09:44→17:51)
[2020-09-29 11:13] LABS: Glucose Point of Care 187 mg/dL (70-110)
[2020-09-29 12:23] LABS: Glucose Point of Care 158 mg/dL (70-110)
[2020-09-29] MEDS: famotidine 20 mg/2 mL INJ IVP (12:57)
[2020-09-29 13:10] LABS: Glucose Point of Care 146 mg/dL (70-110)
--- NOTE | 2020-09-29 13:19 | PC.PT ---
Patient has elevated D-dimer and is on bedrest. Will attempt evaluation when status changes.
[2020-09-29 14:09] LABS: Glucose Point of Care 146 mg/dL (70-110)
--- NOTE | 2020-09-29 14:13 | P.PN_ITS ---
Subjective Subjective: Interval history: Hospital Course 65-year-old male with a past medical history significant for hypertension, dyslipidemia and diabetes mellitus who was recently diagnosed with COVID-19 infection requiring admission to [facility] on 09/26 for hypoxic respi ratory failure. patient was reported to have oxygen saturation in low 70s for which he was placed on 4 L however in the next 24 hours he progressively worsened. Noted to have increased work of breathing and high-flow O2 requirements. He was initiated on remdesivir of which she had received a loadi ng dose on 09/26 and 2nd day dose n 09/27 per tranfering physician. he was also empirically started on azithromycin and cefdinir. Chest x-ray had showed findings consistent with COVID-19 pneumonia. And laboratory workup in review appeared to be stable except D-dimer which was above 7. he was empirically started on Eliquis 5 mg oral twice daily. Due to progressive decline patient was transferred to [facility] viral ICU. Upon arrival patient was found to be hypoxic ( sats in 70s) and in respiratory distress. He was immediately placed on BiPAP with Fio2 of 100% after which he gradually improved. arterial blood gases were obtained which showed a pH of 7.42, pCO2 of 31.9, PO2 of 51.8 and bicarb 20.5. Laboratory workup on arrival was repeated which showed a WBC of 7.0, hemoglobin 12.8, hematocrit 38.9 and a platelet count of 151. sodium 130, potassium 4.0, chloride 95, bicarb 20, BUN 13 and creatinine is 0.7. Lactic acid of 1.7. LFTs were within normal limits. Procalcitonin was 0.55. Upon arrival patient was found to be in respiratory distress while on BiPAP. Was intubated and placed on mechanical ventilation shortly. Started on deep sedation protocol with propofol, fentanyl . Central and arterial lines were placed. Pulmonary Medicine was consulted. Patient was alternating between prone positions. Subjective 09/28 Patient was intubated on placed on vent. Started on sedation in addition to nimbex. Was proned. Pulmonary consulted. 09/29 Overnight patient was changed from prone to supine. Remains stable. FiO2 was weaned to 90%. Continued on sedatives and paralytics. Did not have any fever episodes. Medications: Reviewed: Yes Vitals/I&O/Wt Last Vital Signs Temp 97.0 F L 09/29/20 11:00 Pulse 89 09/29/20 13:00 Resp 22 H 09/29/20 13:56 BP 103/61 09/29/20 13:00 Pulse Ox 93 09/29/20 13:00 09/28/20 09/29/20 09/29/20 22:59 06:59 14:59 Intake Total 235.245 / 579.328 373.044 / 952.372 445.614 / 445.614 Output Total 600 / 600 350 / 950 500 / 500 Balance -364.755 / -20.672 23.044 / 2.372 -54.386 / -54.386 Weight last 48 hrs Weight 96.797 kg Weight 96.797 kg Weight 96.797 kg Weight 96.615 kg Physical Exam Narrative: EXAM NARRATIVE: General - Intubated on MV HEENT- ET tube Chest - vented CVS- sinus tachycardia Abdomen- appeared nondistended Extremities- no edema Urinary Catheter Management^: Noel: Cath Placed During This Visit: yes Reason for Continuing Indwelling Catheter: Accurate Measurement of Urinary Output in Critically Ill Patients Urinary Catheter Date of Insertion: 09/27/20 Urinary Catheter Time of Insertion: 20:00 Data : 09/29/20 03:40 09/29/20 05:40 A&P Assessment and plan (1) Acute respiratory failure with hypoxia: Status: Acute (2) Pneumonia due to COVID-19 virus: Status: Acute (3) Dyslipidemia: Status: Acute (4) Diabetes mellitus: Status: Acute Qualifiers: Diabetes mellitus type: type 2 Diabetes mellitus senior living insulin use: unspecified senior living insulin use status Diabetes mellitus complication status: with other specified complication Qualified Code(s): E11.69 - Type 2 diabetes mellitus with other specified complication (5) Hypertension: Status: Acute Qualifiers: Hypertension type: unspecified Qualified Code(s): I10 - Essential (primary) hypertension Acute respiratory distress syndrome on Mechanical Ventilation ( 09/27 ) Labs - 09/27 -ABG - PH 7.21, pCO2 60.2, PO2 of 54.2 and bicarb 24.4 - 09/28 -ABG - pH 7.21, pCO2 60.3, PO2 120, bicarb 24.2 - 09/29 -ABG - pH 7.33, pCO2 of 43.2, PO2 of 67, bicarb 22.6 on PC, Rate 22 PEEP of 14, Fio2 90%, - Pro- BNP of 616 Imaging : - 09/27 - Chest x-ray -. bilateral pulmonary consolidation L>R, ET tube 2 cm above tiburcio - 09/28 - Multi-lobar pneumonia slightly improved in left lung. - Sedation/Paralytic - Propofol per protocol - Fentanyl 125mcg/hr - Nimbex per protocol Meds: - Duo-neb q4-6hr scheduled - Decadron 6 mg IV daily - Eliquis 5 mg OG BID ( D-dimer > 7 prior to arrival ) Plan: - Likely due to COVID - 19 however possible HF component - ECHO - pending - Low suspicion of super-imposed bacterial infection however pro-calcitonin 0.55 - May resume proning today - Repeat CBC, CMP, ABG /Chest x-ray in AM - Wean Fio2 as tolerated - Plan for CTA chest once renal function improves - D/W pulmonary medicine COVID-19 Pneumonia Labs - Dx of COVID on 09/26 - Ferritin 1976 _ > 3574 - CRP 188.8 - LDH - 439 - D-dimer 13.04 Meds - Remdesivir 100 mg IV daily - Decadron 6 mg IV daily - Eliquis 5 mg OG daily (High risk of thrombo-embolism) Plan: - Complete Remdesivir on day 4/5 - Continue Decadron for 10 days - Q2-day Pro-calcitonin, Ferritin, CRP, LDH - Droplet precaution Acute renal failure Labs : - Creatinine 0.7 - 1.2 - 2.2 Plan: - Repeat BMP in AM - Check urinary NA/Creatinine/osm - Likely due to hypotension/COVID-19 - Will consider cautious IV hydration - Free h20 per OG - Renally dose medication - Consider nephrology consult Uncontrolled Diabetes Mellitus with hyperglycemia - Complicated with decadron - Blood sugar goal < 180 - Continue Insulin gtt today - Q1hr BS checks - If remaining in range will change to SQ / Long acting - Hypoglycemia protocol Hx of Hypertenison - Currently hypotensive likely due to sedatives - On Levophed to maintain MAP > 65 - D/C all anti-hypertensives. Hyponatremia - Etiology multi-factorial - Sodium 130 - Repeat BPM in AM Lines : - Centeral / Arterial ( 09/27) Tubes: - ET tube - OG - Noel FEN : - Holding tube feeding while proning GI ppx - Pepcid 20 mg IV BID DVT ppx - Eliquis 5 mg OG BID Prognosis : Guarded Attestations Medical Necessity Statement*: Will require continued hospitalization for management of ARDS, COVID-19, NADIYA, on vent. 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
[2020-09-29 15:11] LABS: Glucose Point of Care 134 mg/dL (70-110)
[2020-09-29 15:39] LABS: Urine Creatinine 99 mg/dL (39-259)
[2020-09-29 15:41] LABS: Urine Random Sodium 18 mmol/L
[2020-09-29] MEDS: dexamethasone 4 mg/mL INJ 6 MG IVP (15:53)
[2020-09-29] MEDS: propofol 1,000 MG/100 ML INJ 11.6 MG IV (15:53)
[2020-09-29 16:18] LABS: Glucose Point of Care 136 mg/dL (70-110)
--- NOTE | 2020-09-29 16:34 | USCV_ITS ---
Ashutosh Brandt Age: 65 Gender: M : 1955 Exam Date: 09/29/2020 08:52 Ordering Phys: Breanna Rodriguez MD Technologist: Jyoti Roberts Exam Location: [facility] Indication: RESP FAILURE COVID ON VENT BP: 137 / 48 HR: 83 Rhythm: Sinus Technical Quality: Adequate MEASUREMENTS (Male / Female) Normal Values 2D ECHO LV Diastolic Diameter PLAX 4.0 cm 4.2 - 5.9 / 3.9 - 5.3 cm LV Systolic Diameter PLAX 3.3 cm IVS Diastolic Thickness 1.5 cm 0.6 - 1.0 / 0.6 - 0.9 cm IVS Systolic Thickness 1.3 cm LVPW Diastolic Thickness 1.5 cm 0.6 - 1.0 / 0.6 - 0.9 cm LVPW Systolic Thickness 1.5 cm LVOT Diameter 2.1 cm LV Ejection Fraction 2D Teich 35.9 % LV Ejection Fraction MOD 2C 51.4 % LV Ejection Fraction 2C AL 54.7 % LA Diameter 2.8 cm LA Width 3.5 cm LA Height 4.0 cm RA Width 2.7 cm RA Height 4.1 cm Aorta at Sinotubular Diameter 3.9 cm M-MODE LV Diastolic Diameter MM 5.3 cm 4.2 - 5.9 / 3.9 - 5.3 cm LV Systolic Diameter MM 4.0 cm LV Ejection Fraction MM Teich 47.4 % IVS Diastolic Thickness MM 0.9 cm 0.6 - 1.0 / 0.6 - 0.9 cm IVS Systolic Thickness MM 1.2 cm LVPW Diastolic Thickness MM 1.1 cm 0.6 - 1.0 / 0.6 - 0.9 cm LVPW Systolic Thickness MM 1.3 cm RV Diastolic Diameter MM 1.8 cm Aortic Annulus Diameter 3.5 cm LA Ao Ratio MM 0.9 MV E Point Septal Separation 0.6 cm DOPPLER AV Peak Velocity 207.0 cm/s LVOT Peak Velocity 129.0 cm/s AV Area Cont Eq vti 2.0 cm squared AV Area Cont Eq pk 2.1 cm squared MV Area PHT 5.1 cm squared Mitral E to A Ratio 0.9 MV E' Velocity 49.5 cm/s Mitral E to MV E' Ratio 8.6 Mitral E to LV E' Lateral Ratio 8.8 Mitral E to LV E' Septal Ratio 8.5 TR Peak Velocity 191.3 cm/s TR Peak Gradient 14.6 mmHg TR Mean Velocity 133.1 cm/s TR Mean Gradient 8.4 mmHg TR Velocity Time Integral 39.7 cm TV Peak E Velocity 65.0 cm/s Right Atrial Pressure 15.0 mmHg Pulmonary Artery Systolic Pressu 29.6 mmHg PV Peak Velocity 73.0 cm/s RV Acceleration Time 0.2 s RV Ejection Time 0.4 s RV AcT/ET 0.5 FINDINGS Left Ventricle Limited visualization of cardiac structures. Normal left ventricular size. Grossly LV systolic function is Borderline normal. Regional wall motion abnormalities cannot be assessed because of limited visualization. Diastolic function is normal. Right Ventricle The right ventricle is not well-visualized. Right Atrium The right atrium is normal in size. Left Atrium The left atrium is normal in size. Mitral Valve Mitral valve is thickened. Mild mitral annular calcification is seen. No significant mitral regurgitation or stenosis is noted. Aortic Valve Not well-visualized. Significant aortic stenosis or regurgitation is noted. Tricuspid Valve Not well-visualized. No significant stenosis or regurgitation is present. Insufficient TR jet to calculate RVSP. RA pressure is significantly elevated and is 15 mmHg. Pulmonic Valve Not well-visualized. Pericardium Normal pericardium without effusion. Aorta Normal ascending aorta dimension. CONCLUSIONS Limited quality echocardiogram because of poor visualization of cardiac structures. Grossly LV systolic function as borderline normal. Normal diastolic function. Valvular structures are not very well visualized however no significant valvular heart disease is noted. Significantly elevated right atrial pressure and is 15 mmHg. No comparison studies are available. Brandan De Dios MD (Electronically Signed) Final Date: 29 September 2020 17:09 S
[2020-09-29 17:14] LABS: Glucose Point of Care 162 mg/dL (70-110)
[2020-09-29 18:23] LABS: Glucose Point of Care 179 mg/dL (70-110)
--- NOTE | 2020-09-29 18:45 | PC.NURSE ---
Received bedside report on patient from Heavenly Rao RN. Assumed care at this time.
[2020-09-29] MEDS: insulin regular-human 250 UNIT in sodium chloride 0.9% 250 ML IV (19:10)
[2020-09-29 19:27] LABS: Glucose Point of Care 176 mg/dL (70-110)
[2020-09-29 20:15] LABS: Glucose Point of Care 208 mg/dL (70-110)
[2020-09-29 21:34] LABS: Glucose Point of Care 227 mg/dL (70-110)
[2020-09-29 22:24] LABS: Glucose Point of Care 246 mg/dL (70-110)
[2020-09-29 23:17] LABS: Glucose Point of Care 235 mg/dL (70-110)
[2020-09-30] VITALS (114 sets, daily range): BP systolic 89–145; BP diastolic 55–85; PULSE 82–104; RESP 16–26; TEMP 36.7–37.7; O2SAT 89–97; BMI 29.7
[2020-09-30] MEDS: cisatracurium 100 MG in sodium chloride 0.9% 50 ML 11.6 MG IV (00:19)
[2020-09-30 00:26] LABS: Glucose Point of Care 226 mg/dL (70-110)
[2020-09-30] MEDS: ipratropium-albuterol 3 mL Neb INHALATION ×7 (00:58→23:50)
[2020-09-30 01:14] LABS: Glucose Point of Care 220 mg/dL (70-110)
[2020-09-30] MEDS: famotidine 20 mg/2 mL INJ IVP ×2 (01:19→13:24)
[2020-09-30 02:17] LABS: Glucose Point of Care 195 mg/dL (70-110)
[2020-09-30 03:27] LABS: Glucose Point of Care 176 mg/dL (70-110)
[2020-09-30 04:17] LABS: Glucose Point of Care 174 mg/dL (70-110)
[2020-09-30 05:02] LABS: Arterial Blood Gas Hematocrit 41.3 % (42-52); Base Excess ABG -4.6 mmol/L (-2.0-2.0); Blood Gas Allen Test Pos; Blood Gas Sample Type Arterial; HCO3 ABG 19.1 mmol/L (22-26); Oxygen Device VENT; PO2 ABG 63.7 mmHg (80.0-100.0)
[2020-09-30 05:25] LABS: Glucose Point of Care 152 mg/dL (70-110)
[2020-09-30] MEDS: remdesivir 100 MG in sodium chloride 0.9% (100 ml) 100 ML IV (05:40)
[2020-09-30 06:19] LABS: Glucose Point of Care 151 mg/dL (70-110)
[2020-09-30 06:34] LABS: Blood Gas Sample Site Radial, left
[2020-09-30 06:46] LABS: Hematocrit 32.6 % (42.0-52.0); Hemoglobin 10.8 g/dL (11.7-16.6); Lymphocytes # 0.3 10^3/uL (0.8-4.8); Lymphocytes % 6.3 %; Mean Corpuscular HGB Conc 33.1 g/dL (30.0-36.0); Mean Corpuscular Hemoglobin 28.6 pg (28.0-34.0); Mean Corpuscular Volume 86.5 fL (80-94); Mean Platelet Volume 10.9 fL (7.4-10.4); Monocytes # 0.3 10^3/uL (0.2-0.9); Monocytes % 7.5 %; Neutrophils # 3.41 10^3/uL (1.8-7.7); Neutrophils % 85.2 %; Nucleated Red Blood Cells % 0 %; Platelet Count 148 10^3/cmm (130-400); Red Blood Count 3.77 10^6/uL (4.1-5.3); Red Cell Distribution Width 13.7 % (12.1-15.1)
[2020-09-30 06:47] LABS: Alanine Aminotransferase 30 U/L (0-41); Albumin Level 2.7 g/dL (3.5-5.2); Alkaline Phosphatase 69 IU/L (40-130); Anion Gap 20.5 (5-19); Aspartate Amino Transferase 47 U/L (0-40); Blood Urea Nitrogen 72 mg/dL (8-23); Calcium 7.7 mg/dL (8.5-10.5); Carbon Dioxide 19 mmol/L (22-29); Chloride 98 mmol/L (98-107); Glomerular Filtration Rate 19.7 mL/min (90-130); Glucose 164 mg/dL (65-115); Osmolality Calculated 303 mOsm/kg (285-295); Potassium 3.5 mmol/L (3.5-5.1); Sodium 134 mmol/L (136-145); Total Bilirubin 0.3 mg/dL (0.15-1.2); Total Protein 5.7 g/dL (6.6-8.7)
--- NOTE | 2020-09-30 07:00 | XRR_ITS ---
PROCEDURE INFORMATION: Exam: XR Chest, 1 View Exam date and time: 09/30/2020 9:28 AM Age: 65 years old Clinical indication: Device placement; Ett placement (vent status) TECHNIQUE: Imaging protocol: XR of the chest Views: 1 view. COMPARISON: CR XR chest 1V portable [id number] 09/28/2020 9:43 PM FINDINGS: Tubes, catheters and devices: Endotracheal tube, feeding tube, and central venous catheter again demonstrated. The endotracheal tube terminates 3.9 cm above the tiburcio. Lungs: COPD, interstitial disease, and asymmetric basilar airspace disease. Pleural space: No significant pleural effusion. Heart/Mediastinum: No cardiomegaly. Bones/joints: Degenerative change . XR/XR chest 1V [id number] IMPRESSION: COPD, interstitial disease, and asymmetric basilar airspace disease.
[2020-09-30 07:38] LABS: Glucose Point of Care 139 mg/dL (70-110)
[2020-09-30 08:31] LABS: Glucose Point of Care 131 mg/dL (70-110)
[2020-09-30] MEDS: apixaban 5 mg Tablet PO ×2 (08:38→17:27)
[2020-09-30] MEDS: zinc gluconate 50 mg Tablet PO (08:38)
[2020-09-30 09:36] LABS: Glucose Point of Care 145 mg/dL (70-110)
[2020-09-30 10:41] LABS: Glucose Point of Care 157 mg/dL (70-110)
[2020-09-30] MEDS: sodium chloride 0.9% 1,000 ML 75 ML IV ×2 (11:20→23:43)
[2020-09-30 11:40] LABS: Glucose Point of Care 162 mg/dL (70-110)
--- NOTE | 2020-09-30 12:28 | PC.NURSE ---
Rocuronium drip started at 10 ml/hr at 1105 per cyndy Wiggins. Pump settings double checked with SORIN Mathew.
[2020-09-30] MEDS: propofol 1,000 MG/100 ML INJ 17.4 MG IV (12:33)
[2020-09-30 12:44] LABS: Glucose Point of Care 151 mg/dL (70-110)
--- NOTE | 2020-09-30 13:32 | PM.CONSULT ---
Providers/Reason For Consult Consulting Physican/Specialty*: Barbi Perez DO, telenephrology Reason for Consult*: Acute kidney injury Attending Physician: Breanna Rodriguez History of Present Illness History of Present Illness Ashutosh Brandt is a 65 year old male, VDRF, COVID+, pneumonia Review of Systems General: Reports: ROS unobtainable due to endotracheal tube Meds/Allergies Home Medications and Allergies Home Medications Medication Instructions Recorded Confirmed Last Taken Type amlodipine 10 mg PO DAILY 09/28/20 09/28/20 Unknown History atorvastatin 10 mg PO DAILY 09/28/20 09/28/20 Unknown History losartan 50 mg PO DAILY 09/28/20 09/28/20 Unknown History metformin 1,000 mg PO BID 09/28/20 09/28/20 Unknown History methylprednisolone See Rx Instructions .ROUTE .COMPLEX 09/28/20 09/28/20 Unknown History Allergies Allergy/AdvReac Type Severity Reaction Status Date / Time No Known Allergies Allergy Verified 09/27/20 18:50 Current Medications Current Medications Generic Name Dose Route Start Last Admin Trade Name Freq PRN Reason Stop Dose Admin Albuterol/Ipratropium 3 ml 09/28/20 16:00 09/30/20 11:25 Ipratropium-Albuterol 3 Ml Neb INHALATION 3 ml Q4H.RESPIRATORY JAYSON Administration Apixaban 5 mg 09/27/20 18:00 09/30/20 08:38 Apixaban 5 Mg Tablet PO 5 mg BID JAYSON Administration Dexamethasone 6 mg 09/27/20 16:30 09/29/20 15:53 Dexamethasone 4 Mg/Ml Inj IVP 10/07/20 16:29 6 mg Q24H JAYSON Administration Famotidine 20 mg 09/29/20 13:00 09/30/20 13:24 Famotidine 20 Mg/2 Ml Inj IVP 20 mg Q12H JAYSON Administration Propofol 1,000 mg in 100 mls @ 0 mls/hr 09/27/20 20:00 09/30/20 13:20 Diprivan IV 40 mcg/kg/min .Q0M JAYSON 23.2 mls/hr Titration Protocol Per Protocol Fentanyl 1,000 mcg/ Sodium 100 mls @ 0 mls/hr 09/27/20 20:30 09/30/20 12:24 Chloride IV 100 mcg/hr .Q0M JAYSON 10 mls/hr Titration Protocol Per Protocol Midazolam HCl 100 mg/ Sodium 100 mls @ 0 mls/hr 09/27/20 21:45 09/30/20 12:23 Chloride IV 4 mg/hr .Q0M JAYSON 4 mls/hr Titration Protocol Per Protocol Norepinephrine Bitartrate 4 mg 254 mls @ 0 mls/hr 09/27/20 22:15 09/29/20 11:54 / Dextrose IV 0 mcg/min .Q0M JAYSON 0 mls/hr Titration Protocol Per Protocol Insulin Human Regular 250 unit 252.5 mls @ 0 mls/hr 09/28/20 20:05 09/30/20 12:43 / Sodium Chloride IV 5 unit/hr .Q0M JAYSON 5.1 mls/hr Titration Protocol Per Protocol Sodium Chloride 1,000 mls @ 75 mls/hr 09/30/20 09:45 09/30/20 11:20 Sodium Chloride 0.9% IV 75 mls/hr .[id number] JAYSON Administration Zinc Gluconate 50 mg 09/28/20 09:00 09/30/20 08:38 Zinc Gluconate 50 Mg Tablet PO 50 mg DAILY JAYSON Administration PFSH Acute PFSH: Social History Smoking and tobacco status: unknown if ever smoked Alcohol intake: never Substance/Drug Use: never Vitals/I&O/Wt Last Vital Signs Temp 99.9 F H 09/30/20 07:00 Pulse 92 09/30/20 11:26 Resp 22 H 09/30/20 11:30 BP 119/69 09/30/20 09:00 Pulse Ox 93 09/30/20 11:26 09/29/20 09/30/20 09/30/20 22:59 06:59 14:59 Intake Total 174.414 / 720.028 374.267 / 1094.295 245.102 / 245.102 Output Total 200 / 700 1050 / 1750 Balance -25.586 / 20.028 -675.733 / -655.705 245.102 / 245.102 Weight last 48 hrs Weight 96.797 kg Weight 96.797 kg Physical Exam Urinary Catheter Management^: Noel: Cath Placed During This Visit: yes Reason for Continuing Indwelling Catheter: Accurate Measurement of Urinary Output in Critically Ill Patients Urinary Catheter Date of Insertion: 09/27/20 Urinary Catheter Time of Insertion: 20:00 Data Labs: Other Labs: 7.40//64 50%, +14 PEEP calcium 7.7, albumin 2.7, urine Na 18, Cr 99, FeNa < 1% Imaging^: CXR: Radiologist's impression: COPD, interstitial disease, and asymmetric basilar airspace disease. Echo: Radiologist's impression: CONCLUSIONS Limited quality echocardiogram because of poor visualization of cardiac structures. Grossly LV systolic function as borderline normal. Normal diastolic function. Valvular structures are not very well visualized however no significant valvular heart disease is noted. Significantly elevated right atrial pressure and is 15 mmHg. No comparison studies are available. A&P Additional A&P Information Impression: 1. Acute nonoliguric kidney injury, urine chemistry consistent with prerenal, now hypotensive 2. VDRF, pnuemonia, COVID 3. Mild hyponatremia, hypokalemia Recommendation: agree with IVF hydration. Check CK and other electrolytes. Adjust meds for reduced eGFR. Will follow with you. 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
[2020-09-30 13:34] LABS: Glucose Point of Care 138 mg/dL (70-110)
[2020-09-30 14:37] LABS: Glucose Point of Care 136 mg/dL (70-110)
--- NOTE | 2020-09-30 15:11 | P.PN_ITS ---
Subjective Subjective: Interval history: Hospital Course 65-year-old male with a past medical history significant for hypertension, dyslipidemia and diabetes mellitus who was recently diagnosed with COVID-19 infection requiring admission to [facility] on 09/26 for hypoxic respi ratory failure. patient was reported to have oxygen saturation in low 70s for which he was placed on 4 L however in the next 24 hours he progressively worsened. Noted to have increased work of breathing and high-flow O2 requirements. He was initiated on remdesivir of which she had received a loadi ng dose on 09/26 and 2nd day dose n 09/27 per tranfering physician. Bravo was also empirically started on azithromycin and cefdinir. Chest x-ray had showed findings consistent with COVID-19 pneumonia. And laboratory workup in review appeared to be stable except D-dimer which was above 7. He was empirically started on Eliquis 5 mg oral twice daily. Due to progressive decline patient was transferred to [facility] viral ICU. Upon arrival patient was found to be hypoxic ( sats in 70s) and in respiratory distress. He was immediately placed on BiPAP with Fio2 of 100% after which he gradually improved. arterial blood gases were obtained which showed a pH of 7.42, pCO2 of 31.9, PO2 of 51.8 and bicarb 20.5. Laboratory workup on arrival was repeated which showed a WBC of 7.0, hemoglobin 12.8, hematocrit 38.9 and a platelet count of 151. sodium 130, potassium 4.0, chloride 95, bicarb 20, BUN 13 and creatinine is 0.7. Lactic acid of 1.7. LFTs were within normal limits. Procalcitonin was 0.55. Shortly after arrival patient was noted to have respiratory failure with BiPAP requiring 100% FiO2. Due to this patient was intubated and placed on mechanical ventilation. Pulmonary medicine was consulted. Patient was noted to have severe adult respiratory distress syndrome likely from COVID-19 pneumonia. He was initiated on deep sedation protocol and subsequently started on NBM, initially with nimbex however to do low supply this was changed to rocoronium. Due to high dose requirement of sedatives to maintain deep sedation ( RASS -4) while on NMB he was note to have hypotensive episodes. Central line was placed and he was started on levophed. Fio2 was weaned to 50% on 09/30. NMB was held. Unfortunately his hospitalization was complicated with hyperglycemia likely due to decadron. In order to achieve blood glucose goal of less than 180 he was placed on insulin ggt per protocol. Also found to have worsening acute renal failure with creatinine increasing from 0.7 to 3.2 Ua NA was noted to be less than 20. Intravascular volume depletion and thus was initiated on NS at 75cc/hr. Nephrology was consulted. Subjective 09/28 Patient was intubated on placed on vent. Started on sedation in addition to nimbex. Was proned. Pulmonary consulted. 09/29 Overnight patient was changed from prone to supine. Remains stable. FiO2 was weaned to 90%. Continued on sedatives and paralytics. Did not have any fever episodes. 09/30 Patients Fio2 was weaned to 50%, Pao2/fio2 ratio was 138. His rocoronium was stopped. Noted to have stable urinary output however creatinine had worsened. Low grade fevers. Medications: Reviewed: Yes Vitals/I&O/Wt Last Vital Signs Temp 99.9 F H 09/30/20 07:00 Pulse 92 09/30/20 11:26 Resp 21 H 09/30/20 14:18 BP 119/69 09/30/20 09:00 Pulse Ox 93 09/30/20 11:26 09/30/20 09/30/20 09/30/20 06:59 14:59 22:59 Intake Total 374.267 / 1094.295 274.575 / 274.575 Output Total 1050 / 1750 Balance -675.733 / -655.705 274.575 / 274.575 Weight last 48 hrs Weight 96.797 kg Weight 96.797 kg Physical Exam Narrative: EXAM NARRATIVE: General - Intubated on MV HEENT- ET tube Chest - vented CVS- sinus tachycardia Abdomen- appeared nondistended Extremities- no edema Urinary Catheter Management^: Noel: Cath Placed During This Visit: yes Reason for Continuing Indwelling Catheter: Accurate Measurement of Urinary Output in Critically Ill Patients Urinary Catheter Date of Insertion: 09/27/20 Urinary Catheter Time of Insertion: 20:00 Data : 09/30/20 04:15 09/30/20 04:15 A&P Assessment and plan (1) Acute respiratory failure with hypoxia: Status: Acute (2) Pneumonia due to COVID-19 virus: Status: Acute (3) Dyslipidemia: Status: Acute (4) Diabetes mellitus: Status: Acute Qualifiers: Diabetes mellitus type: type 2 Diabetes mellitus rn long term care insulin use: unspecified senior living insulin use status Diabetes mellitus complication status: with other specified complication Qualified Code(s): E11.69 - Type 2 diabetes mellitus with other specified complication (5) Hypertension: Status: Acute Qualifiers: Hypertension type: unspecified Qualified Code(s): I10 - Essential (primary) hypertension Acute respiratory distress syndrome on Mechanical Ventilation ( 09/27 ) - Due to COVID 19 pneumonia - Non-cardiogenic Pulmonary edema Labs - 09/27 -ABG - PH 7.21, pCO2 60.2, PO2 of 54.2 and bicarb 24.4 - 09/28 -ABG - pH 7.21, pCO2 60.3, PO2 120, bicarb 24.2 - 09/29 -ABG - pH 7.33, pCO2 of 43.2, PO2 of 67, bicarb 22.6 on PC, Rate 22 PEEP of 14, Fio2 90%, - 09/30 - ABG 7.40, pCO2 of 31, Po2 of 63, Hco3 of 19.1 on pressure control / Fio2 of 50.0%, PEEP of 14, - Pro- BNP of 616 - Pro-calcitonin 0.55 Imaging : - 09/27 - Chest x-ray -. bilateral pulmonary consolidation L>R, ET tube 2 cm above tiburcio - 09/28 - Multi-lobar pneumonia slightly improved in left lung. - ECHO - LV function WNL - significantly elevated RA pressures. RV not well seen. Sedation/Paralytic - Propofol per protocol - Fentanyl 125mcg/hr - Nimbex per protocol Meds: - Duo-neb q4-6hr scheduled - Decadron 6 mg IV daily - Eliquis 5 mg OG BID ( D-dimer > 7 prior to arrival ) Plan: - PaO2/FiO2 ratio 138 - Mod. ARDs today -> Fio2 weaned to 50%. In-light of this will try to wean off NMB unless additional staff available in ICU in which case will continue and intermittently place in prone pressure. - Continue on Propofol / Versed / Fenanyl for deep sedation - Titrate Levophed to keep MAP > 65 - Continue to wean FiO2 as tolerated - CBC/CMP/ABG/Chest x-ray in am COVID-19 Pneumonia - Low suspection of underlying bacterial pneumonia Labs - Dx of COVID on 09/26 - Ferritin 1976 -> 3574 - CRP 188.8 - LDH - 439 - D-dimer 13.04 - Procal 0.55 Plan: - Completed Remdesivir on day 5 - Continue Decadron 6 mg IV daily - Q2-day Pro-calcitonin, Ferritin, CRP, LDH - Droplet precaution Acute renal failure - Due to Hypotensive episodes, COVID-19 Labs : - Creatinine 0.7 - 1.2 - 2.2 - 3.2 - UA NA - 18, Osm - pending Plan: - Started on NS at 75 cc/hr - monitor urine output- nephrology consulted - renally dose medication - Noel in place - monitor urine ouput Uncontrolled Diabetes Mellitus with hyperglycemia - Complicated with decadron - Blood sugar goal < 180 - Continue Insulin gtt - Monitor K level - Check K in pm today - Replace as needed - Q1hr BS checks - If remaining in range will change to SQ / Long acting - Hypoglycemia protocol Hx of Hypertenison - Currently hypotensive likely due to sedatives - On Levophed to maintain MAP > 65 - D/C all anti-hypertensives. Hypovolemic Hyponatremia - Etiology multi-factorial - Sodium 130 - 134 - Ua NS 18 - Nephorology on board - Repeat BPM in AM Lines : - Central / Arterial ( 09/27) Tubes: - ET tube - OG - Noel FEN : - Holding tube feeding for now GI ppx - Pepcid 20 mg IV BID DVT ppx - Eliquis 5 mg OG BID Attestations Medical Necessity Statement*: Require continued hospitalization for management of hypoxic respiratory failure, ARDS, COVID-19, acute renal insufficiency. Time Spent in Patient Care: Greater than 35 minutes (>than 50% of time spent in counselling and/or direct pt care on unit) . Critical Care Time: Critical Care Time (min): 65 Coding Level of Care Code Acute Operations Leader for [facility] Fwd Diagnoses Acute respiratory failure with hypoxia J96.01 Pneumonia due to COVID-19 virus U07.1; J12.89 Dyslipidemia E78.5 Diabetes mellitus E11.69 Diabetes mellitus type: type 2 Diabetes mellitus rn long term care insulin use: unspecified senior living insulin use status Diabetes mellitus complication status: with other specified complication Hypertension I10 Hypertension type: unspecified
[2020-09-30 15:30] LABS: Glucose Point of Care 150 mg/dL (70-110)
[2020-09-30] MEDS: dexamethasone 4 mg/mL INJ 6 MG IVP (15:33)
[2020-09-30] MEDS: propofol 1,000 MG/100 ML INJ 23.2 MG IV ×2 (16:30→19:55)
[2020-09-30 16:36] LABS: Glucose Point of Care 136 mg/dL (70-110)
[2020-09-30 16:44] LABS: Magnesium 3.1 mg/dL (1.7-2.3); Phosphorus 4.8 mg/dL (2.5-4.5)
[2020-09-30 17:15] LABS: Creatine Phosphokinase 2666 U/L (39-308)
[2020-09-30 17:36] LABS: Glucose Point of Care 145 mg/dL (70-110)
[2020-09-30 18:35] LABS: Glucose Point of Care 167 mg/dL (70-110)
--- NOTE | 2020-09-30 18:45 | PC.NURSE ---
Received bedside report on patient from Heavenly ROWELL. Assumed care at this time.
[2020-09-30 19:25] LABS: Glucose Point of Care 161 mg/dL (70-110)
--- NOTE | 2020-09-30 19:37 | PC.NURSE ---
1300 Spoke to Matilda Lanza, nurse manage to clarify rocuronium drip titration protocol. Calculations were checked with mena Wiggins, Priyanka RN, and SORIN Grey. No protocol at this time. Follow pharmacists recommendations to start drip at 10 ml/hr, titrate by 10ml/hr Q1H as needed with max dose 58 ml/hr. [address] Rodriguez. Orders to stop rocuronium drip. Rocuronium drip turned off.
[2020-09-30 20:27] LABS: Glucose Point of Care 169 mg/dL (70-110)
[2020-09-30 21:38] LABS: Glucose Point of Care 170 mg/dL (70-110)
[2020-09-30 22:27] LABS: Glucose Point of Care 192 mg/dL (70-110)
[2020-09-30 23:33] LABS: Glucose Point of Care 178 mg/dL (70-110)
[2020-10-01] VITALS (101 sets, daily range): BP systolic 82–183; BP diastolic 48–84; PULSE 80–111; RESP 12–30; TEMP 37.5–39.1; O2SAT 84–99; BMI 29.7
[2020-10-01 00:31] LABS: Glucose Point of Care 163 mg/dL (70-110)
[2020-10-01] MEDS: propofol 1,000 MG/100 ML INJ 23.2 MG IV ×3 (00:42→23:14)
[2020-10-01 01:26] LABS: Glucose Point of Care 161 mg/dL (70-110)
[2020-10-01] MEDS: famotidine 20 mg/2 mL INJ IVP ×2 (01:50→13:56)
[2020-10-01 02:32] LABS: Glucose Point of Care 141 mg/dL (70-110)
[2020-10-01 03:32] LABS: Glucose Point of Care 119 mg/dL (70-110)
[2020-10-01] MEDS: ipratropium-albuterol 3 mL Neb INHALATION ×6 (04:05→23:29)
[2020-10-01 04:44] LABS: Glucose Point of Care 135 mg/dL (70-110)
[2020-10-01 05:08] LABS: ABG PCO2 31.8 mmHg (35-45); ABG PH Result 7.43 (7.35-7.45); Arterial Blood Gas Hematocrit 44.5 % (42-52); Base Excess ABG -2.4 mmol/L (-2.0-2.0); Blood Gas Allen Test Pos; Blood Gas Sample Site Radial, left; Blood Gas Sample Type Arterial; Oxygen Device VENT; PO2 ABG 57.3 mmHg (80.0-100.0)
[2020-10-01 05:20] LABS: Hematocrit 31.7 % (42.0-52.0); Hemoglobin 10.3 g/dL (11.7-16.6); Lymphocytes # 0.2 10^3/uL (0.8-4.8); Lymphocytes % 4.6 %; Mean Corpuscular HGB Conc 32.5 g/dL (30.0-36.0); Mean Corpuscular Hemoglobin 28.1 pg (28.0-34.0); Mean Corpuscular Volume 86.6 fL (80-94); Mean Platelet Volume 10.8 fL (7.4-10.4); Monocytes # 0.4 10^3/uL (0.2-0.9); Monocytes % 8.9 %; Neutrophils # 3.95 10^3/uL (1.8-7.7); Neutrophils % 85.8 %; Nucleated Red Blood Cells % 0 %; Platelet Count 194 10^3/cmm (130-400); Red Blood Count 3.66 10^6/uL (4.1-5.3); White Blood Count 4.6 10^3/uL (4.0-10.0)
[2020-10-01 05:52] LABS: Glucose Point of Care 136 mg/dL (70-110)
[2020-10-01 05:58] LABS: Procalcitonin 0.64 ng/mL (0-0.5)
[2020-10-01 06:13] LABS: Alanine Aminotransferase 40 U/L (0-41); Albumin Level 2.5 g/dL (3.5-5.2); Alkaline Phosphatase 60 IU/L (40-130); Anion Gap 16.4 (5-19); Aspartate Amino Transferase 78 U/L (0-40); Blood Urea Nitrogen 71 mg/dL (8-23); Calcium 7.5 mg/dL (8.5-10.5); Carbon Dioxide 20 mmol/L (22-29); Chloride 108 mmol/L (98-107); Globulin 2.9 g/dL (1.3-4.6); Glomerular Filtration Rate 23.9 mL/min (90-130); Glucose 121 mg/dL (65-115); Lactate Dehydrogenase 437 U/L (135-225); Osmolality Calculated 312 mOsm/kg (285-295); Potassium 4.4 mmol/L (3.5-5.1); Sodium 140 mmol/L (136-145); Total Bilirubin 0.4 mg/dL (0.15-1.2); Total Protein 5.4 g/dL (6.6-8.7)
[2020-10-01 06:27] LABS: D Dimer >= 20.00 ug/mIFEU (0-0.59)
[2020-10-01 06:31] LABS: Glucose Point of Care 139 mg/dL (70-110)
[2020-10-01 06:56] LABS: Ferritin 1256 ng/mL (30-400)
[2020-10-01 07:03] LABS: Creatine Phosphokinase 4243 U/L (39-308)
[2020-10-01] MEDS: propofol 1,000 MG/100 ML INJ 29 MG IV ×3 (07:45→14:53)
[2020-10-01 08:12] LABS: Glucose Point of Care 144 mg/dL (70-110)
--- NOTE | 2020-10-01 08:48 | P.PN_ITS ---
Subjective Subjective: Interval history: intubated and sedated- can not obtain a ROS Medications: Reviewed: Yes Medication Review Details: Current Medications Acetaminophen (Acetaminophen 325 Mg Tablet) 650 mg PO Q6H PRN PRN Reason: MILD PAIN Albuterol/Ipratropium (Ipratropium-Albuterol 3 Ml Neb) 3 ml INHALATION Q4H.RESPIRATORY [facility] Last Admin: 10/01/20 08:27 Dose: 3 ml Documented by: Apixaban (Apixaban 5 Mg Tablet) 5 mg PO BID [facility] Last Admin: 09/30/20 17:27 Dose: 5 mg Documented by: Dexamethasone (Dexamethasone 4 Mg/Ml Inj) 6 mg IVP Q24H [facility] Stop: 10/07/20 16:29 Last Admin: 09/30/20 15:33 Dose: 6 mg Documented by: Dextrose (Dextrose 50% Syringe 50 Ml) 25 ml IVP ONCE PRN; Protocol PRN Reason: hypoglycemia protocol Dextrose (Dextrose 50% Syringe 50 Ml) 50 ml IVP PRN PRN; Protocol PRN Reason: hypoglycemia protocol Famotidine (Famotidine 20 Mg/2 Ml Inj) 20 mg IVP Q12H [facility] Last Admin: 10/01/20 01:50 Dose: 20 mg Documented by: Glucagon (Glucagon 1 Mg/Ml Inj 1 Ml) 1 mg IM ONCE PRN; Protocol PRN Reason: Adult Acute Hypoglycemia Prot. Dextrose (D5w) 500 mls @ 100 mls/hr IV ONCE PRN; Protocol PRN Reason: Adult Acute Hypoglycemia Prot Propofol (Diprivan) 1,000 mg in 100 mls @ 0 mls/hr IV .Q0M [facility]; Protocol Last Admin: 10/01/20 07:45 Dose: 50 mcg/kg/min, 29 mls/hr Documented by: Fentanyl 1,000 mcg/ Sodium (Chloride) 100 mls @ 0 mls/hr IV .Q0M [facility]; Protocol Last Titration: 10/01/20 05:00 Dose: 125 mcg/hr, 12.5 mls/hr Documented by: Midazolam HCl 100 mg/ Sodium (Chloride) 100 mls @ 0 mls/hr IV .Q0M [facility]; Protocol Last Admin: 10/01/20 07:23 Dose: 5 mg/hr, 5 mls/hr Documented by: Norepinephrine Bitartrate 4 mg (/ Dextrose) 254 mls @ 0 mls/hr IV .Q0M [facility]; Protocol Last Titration: 09/29/20 11:54 Dose: 0 mcg/min, 0 mls/hr Documented by: Sodium Chloride (Sodium Chloride 0.9%) 1,000 mls @ 0 mls/hr XX .Q0M [facility] Insulin Human Regular 250 unit (/ Sodium Chloride) 252.5 mls @ 0 mls/hr IV .Q0M [facility]; Protocol Last Titration: 10/01/20 05:45 Dose: 0.8 unit/hr, 0.8 mls/hr Documented by: Sodium Chloride (Sodium Chloride 0.9%) 1,000 mls @ 75 mls/hr IV .[id number] [facility] Last Admin: 09/30/20 23:43 Dose: 75 mls/hr Documented by: Zinc Gluconate (Zinc Gluconate 50 Mg Tablet) 50 mg PO DAILY [facility] Last Admin: 09/30/20 08:38 Dose: 50 mg Documented by: Vitals/I&O/Wt Last Vital Signs Temp 98.3 F 09/30/20 11:00 Pulse 99 10/01/20 08:29 Resp 27 H 10/01/20 08:32 BP 111/61 10/01/20 07:45 Pulse Ox 90 10/01/20 08:29 09/30/20 10/01/20 10/01/20 22:59 06:59 14:59 Intake Total 176.151 / 551.693 8971.802 / 1803.528 11.633 / 11.633 Output Total 1250 / 2150 1500 / 3650 Balance -1073.849 / -1699.274 -147.198 / -1846.472 11.633 / 11.633 Weight last 48 hrs Weight 96.797 kg Weight 96.797 kg Physical Exam Narrative: EXAM NARRATIVE: intubated, sedated. vent TV 500/ PC/AC/ fio2 60%, PEEP 13, RR 16 continues to spike temps heent- bc/at neck supple lungs b/l ronchi heart reg, tachycardic abd soft ext no edema Urinary Catheter Management^: Noel: Cath Placed During This Visit: yes Reason for Continuing Indwelling Catheter: Accurate Measurement of Urinary Output in Critically Ill Patients Urinary Catheter Date of Insertion: 09/27/20 Urinary Catheter Time of Insertion: 20:00 Data : 10/01/20 03:45 10/01/20 03:45 A&P Additional A&P Information Impression: 1. Acute nonoliguric kidney injury, urine chemistry consistent with prerenal azotemia vs ATN- renal fxn improving w/ ivf -rhabdomyolyisis- cr improving, ck rising - cont ivf and lasix- inc uop -monitor ck bid -low ur na noted -await renal us 2. hyponatremia- prerenal and COVID-19- improving w/ ivf 2. VDRF, pnuemonia, COVID 3.DM control 5. echo okay 6. meds reviewed discussed w/ RN Recommendation: agree with IVF hydration. Check CK and other electrolytes. Adjust meds for reduced eGFR. Will follow with you. Attestations Medical Necessity Statement*: covid-19 pna, vdrf, rhabdo Time Spent in Patient Care: Greater than 35 minutes Coding Level of Care Code Acute Hoop Maker Machine for Me[facility]
[2020-10-01] MEDS: zinc gluconate 50 mg Tablet PO (10:12)
[2020-10-01] MEDS: acetaminophen 325 mg Tablet 650 MG PO (10:12)
[2020-10-01] MEDS: apixaban 5 mg Tablet PO ×2 (10:13→17:46)
[2020-10-01] MEDS: FUROsemide 10 mg/mL SDV 2mL 20 MG IVP (10:13)
[2020-10-01] MEDS: insulin glargine 100 units/1 mL 10 UNIT SUBCUT ×2 (12:54→22:32)
[2020-10-01 13:12] LABS: Glucose Point of Care 145 mg/dL (70-110)
[2020-10-01 13:12] LABS: Glucose Point of Care 144 mg/dL (70-110)
[2020-10-01] MEDS: sodium chloride 0.9% 1,000 ML 75 ML IV ×2 (13:55→23:50)
[2020-10-01] MEDS: dexamethasone 4 mg/mL INJ 6 MG IVP (16:42)
--- NOTE | 2020-10-01 16:50 | P.PN_ITS ---
Subjective Subjective: Interval history: Hospital Course 65-year-old male with a past medical history significant for hypertension, dyslipidemia and diabetes mellitus who was recently diagnosed with COVID-19 infection requiring admission to [facility] on 09/26 for hypoxic respi ratory failure. patient was reported to have oxygen saturation in low 70s for which he was placed on 4 L however in the next 24 hours he progressively worsened. Noted to have increased work of breathing and high-flow O2 requirements. He was initiated on remdesivir of which she had received a loadi ng dose on 09/26 and 2nd day dose n 09/27 per tranfering physician. Bravo was also empirically started on azithromycin and cefdinir. Chest x-ray had showed findings consistent with COVID-19 pneumonia. And laboratory workup in review appeared to be stable except D-dimer which was above 7. He was empirically started on Eliquis 5 mg oral twice daily. Due to progressive decline patient was transferred to [facility] viral ICU. Upon arrival patient was found to be hypoxic ( sats in 70s) and in respiratory distress. He was immediately placed on BiPAP with Fio2 of 100% after which he gradually improved. arterial blood gases were obtained which showed a pH of 7.42, pCO2 of 31.9, PO2 of 51.8 and bicarb 20.5. Laboratory workup on arrival was repeated which showed a WBC of 7.0, hemoglobin 12.8, hematocrit 38.9 and a platelet count of 151. sodium 130, potassium 4.0, chloride 95, bicarb 20, BUN 13 and creatinine is 0.7. Lactic acid of 1.7. LFTs were within normal limits. Procalcitonin was 0.55. Shortly after arrival patient was noted to have respiratory failure with BiPAP requiring 100% FiO2. Due to this patient was intubated and placed on mechanical ventilation. Pulmonary medicine was consulted. Patient was noted to have severe adult respiratory distress syndrome likely from COVID-19 pneumonia. He was initiated on deep sedation protocol and subsequently started on NBM, initially with nimbex however to do low supply this was changed to rocoronium. Due to high dose requirement of sedatives to maintain deep sedation ( RASS -4) while on NMB he was note to have hypotensive episodes. Central line was placed and he was started on levophed. Fio2 was weaned to 50% on 09/30. NMB was held. Unfortunately his hospitalization was complicated with hyperglycemia likely due to decadron. In order to achieve blood glucose goal of less than 180 he was placed on insulin ggt per protocol. Also found to have worsening acute renal failure with creatinine increasing from 0.7 to 3.2 Ua NA was noted to be less than 20. Intravascular volume depletion and thus was initiated on NS at 75cc/hr. Nephrology was consulted. Subjective 09/28 Patient was intubated on placed on vent. Started on sedation in addition to nimbex. Was proned. Pulmonary consulted. 09/29 Overnight patient was changed from prone to supine. Remains stable. FiO2 was weaned to 90%. Continued on sedatives and paralytics. Did not have any fever episodes. 09/30 Patients Fio2 was weaned to 50%, Pao2/fio2 ratio was 138. His rocoronium was stopped. Noted to have stable urinary output however creatinine had worsened. Low grade fevers. 10/01 Overnight patient was noted have increased FiO2 requirements from 50 to 70. patient was breathing above the vent at a rate of 22. he was resumed on NMB ggt and plan to be place in prone position. Transitioned off insulin gtt to SQ ins ulin. Medications: Reviewed: Yes Medication Review Details: Current Medications Acetaminophen (Acetaminophen 325 Mg Tablet) 650 mg PO Q6H PRN PRN Reason: MILD PAIN Albuterol/Ipratropium (Ipratropium-Albuterol 3 Ml Neb) 3 ml INHALATION Q4H.RESPIRATORY [facility] Last Admin: 10/01/20 08:27 Dose: 3 ml Documented by: Apixaban (Apixaban 5 Mg Tablet) 5 mg PO BID [facility] Last Admin: 09/30/20 17:27 Dose: 5 mg Documented by: Dexamethasone (Dexamethasone 4 Mg/Ml Inj) 6 mg IVP Q24H [facility] Stop: 10/07/20 16:29 Last Admin: 09/30/20 15:33 Dose: 6 mg Documented by: Dextrose (Dextrose 50% Syringe 50 Ml) 25 ml IVP ONCE PRN; Protocol PRN Reason: hypoglycemia protocol Dextrose (Dextrose 50% Syringe 50 Ml) 50 ml IVP PRN PRN; Protocol PRN Reason: hypoglycemia protocol Famotidine (Famotidine 20 Mg/2 Ml Inj) 20 mg IVP Q12H [facility] Last Admin: 10/01/20 01:50 Dose: 20 mg Documented by: Glucagon (Glucagon 1 Mg/Ml Inj 1 Ml) 1 mg IM ONCE PRN; Protocol PRN Reason: Adult Acute Hypoglycemia Prot. Dextrose (D5w) 500 mls @ 100 mls/hr IV ONCE PRN; Protocol PRN Reason: Adult Acute Hypoglycemia Prot Propofol (Diprivan) 1,000 mg in 100 mls @ 0 mls/hr IV .Q0M [facility]; Protocol Last Admin: 10/01/20 07:45 Dose: 50 mcg/kg/min, 29 mls/hr Documented by: Fentanyl 1,000 mcg/ Sodium (Chloride) 100 mls @ 0 mls/hr IV .Q0M [facility]; Protocol Last Titration: 10/01/20 05:00 Dose: 125 mcg/hr, 12.5 mls/hr Documented by: Midazolam HCl 100 mg/ Sodium (Chloride) 100 mls @ 0 mls/hr IV .Q0M [facility]; Protocol Last Admin: 10/01/20 07:23 Dose: 5 mg/hr, 5 mls/hr Documented by: Norepinephrine Bitartrate 4 mg (/ Dextrose) 254 mls @ 0 mls/hr IV .Q0M [facility]; Protocol Last Titration: 09/29/20 11:54 Dose: 0 mcg/min, 0 mls/hr Documented by: Sodium Chloride (Sodium Chloride 0.9%) 1,000 mls @ 0 mls/hr XX .Q0M [facility] Insulin Human Regular 250 unit (/ Sodium Chloride) 252.5 mls @ 0 mls/hr IV .Q0M [facility]; Protocol Last Titration: 10/01/20 05:45 Dose: 0.8 unit/hr, 0.8 mls/hr Documented by: Sodium Chloride (Sodium Chloride 0.9%) 1,000 mls @ 75 mls/hr IV .[id number] [facility] Last Admin: 09/30/20 23:43 Dose: 75 mls/hr Documented by: Zinc Gluconate (Zinc Gluconate 50 Mg Tablet) 50 mg PO DAILY [facility] Last Admin: 09/30/20 08:38 Dose: 50 mg Documented by: Vitals/I&O/Wt Last Vital Signs Temp 99.8 F H 10/01/20 11:45 Pulse 91 10/01/20 16:30 Resp 12 10/01/20 16:30 BP 90/50 10/01/20 16:30 Pulse Ox 87 L 10/01/20 16:30 10/01/20 10/01/20 10/01/20 06:59 14:59 22:59 Intake Total 1352.802 / 7020.713 1613.858 / 1363.858 Output Total 1500 / 3650 800 / 800 Balance -147.198 / -1846.472 563.858 / 563.858 Weight last 48 hrs Weight 96.797 kg Weight 96.797 kg Physical Exam Narrative: EXAM NARRATIVE: General - Intubated on MV HEENT- ET tube Chest - vented CVS- sinus tachycardia Abdomen- appeared non-distended Extremities- no edema Urinary Catheter Management^: Noel: Cath Placed During This Visit: yes Reason for Continuing Indwelling Catheter: Accurate Measurement of Urinary Output in Critically Ill Patients Urinary Catheter Date of Insertion: 09/27/20 Urinary Catheter Time of Insertion: 20:00 Data : 10/01/20 03:45 10/01/20 03:45 A&P Assessment and plan (1) Acute respiratory failure with hypoxia: Status: Acute (2) Pneumonia due to COVID-19 virus: Status: Acute (3) Dyslipidemia: Status: Acute (4) Diabetes mellitus: Status: Acute Qualifiers: Diabetes mellitus type: type 2 Diabetes mellitus snf insulin use: unspecified snf insulin use status Diabetes mellitus complication status: with other specified complication Qualified Code(s): E11.69 - Type 2 diabetes mellitus with other specified complication (5) Hypertension: Status: Acute Qualifiers: Hypertension type: unspecified Qualified Code(s): I10 - Essential (primary) hypertension Acute respiratory distress syndrome on Mechanical Ventilation ( 09/27 ) - Due to COVID 19 pneumonia - Non-cardiogenic Pulmonary edema Labs - 09/27 -ABG - PH 7.21, pCO2 60.2, PO2 of 54.2 and bicarb 24.4 - 09/28 -ABG - pH 7.21, pCO2 60.3, PO2 120, bicarb 24.2 - 09/29 -ABG - pH 7.33, pCO2 of 43.2, PO2 of 67, bicarb 22.6 on PC, Rate 22 PEEP of 14, Fio2 90%, - 09/30 - ABG 7.40, pCO2 of 31, Po2 of 63, Hco3 of 19.1 on pressure control / Fio2 of 50.0%, PEEP of 14, - 10/01 - ABG - 7.43, 31.8, Po2 57.3, HOC3 21 - Pro- BNP of 616 - Pro-calcitonin 0.55 Imaging : - 09/27 - Chest x-ray -. bilateral pulmonary consolidation L>R, ET tube 2 cm above tiburcio - 09/28 - Multi-lobar pneumonia slightly improved in left lung. - ECHO - LV function WNL - significantly elevated RA pressures. RV not well seen. Sedation/Paralytic - Propofol per protocol - Fentanyl 125mcg/hr - Rocoronium per protocol Meds: - Duo-neb q4-6hr scheduled - Decadron 6 mg IV daily - Eliquis 5 mg OG BID ( D-dimer > 7 prior to arrival ) Plan: - Restart on alex per protocol - neural monitoring - Continue on Propofol / Versed / Fenanyl for deep sedation - Titrate Levophed to keep MAP > 65 - Continue to wean FiO2 as tolerated - currently 70% - Initiated proning again today for 12hr - Continue pressure control ventilation - Repeat abg - Follow up on pulmonary medicine recommendation in am COVID-19 Pneumonia - Low suspicion of underlying bacterial pneumonia Labs - Dx of COVID on 09/26 - Ferritin 1976 -> 3574 - 1256 - CRP 188.8 - LDH - 439 - D-dimer 13.04 - Procal 0.55 Plan: - Completed Remdesivir on day 5/ - Continue Decadron 6 mg IV daily - Q2-day Pro-calcitonin, Ferritin, CRP, LDH - Droplet precaution Acute renal failure / Rhabdomyolysis - Due to Hypotensive episodes, COVID-19 , rhabdo Labs : - Creatinine 0.7 - 1.2 - 2.2 - 3.2 - > 2.7 - UA NA - 18, Osm - pending - CK 2666 - > repeat pending Plan: - Continue IVF as per nephro - Noel in place - monitor urine ouput Uncontrolled Diabetes Mellitus with hyperglycemia - Complicated with decadron - Blood sugar goal < 180 - Hypoglycemia protocol - D/C Insulin gtt - Lantus 10 units am daiy - Blood sugar check q4hr - Sliding scale insulin Hx of Hypertenison - Currently hypotensive likely due to sedatives - On Levophed to maintain MAP > 65 - D/C all anti-hypertensives. Hypovolemic Hyponatremia - Etiology multi-factorial - Sodium 130 - 134 - Ua NS 18 - Nephorology on board - Repeat BPM in AM Lines : - Central / Arterial ( 09/27) Tubes: - ET tube - OG - Noel FEN : - Holding tube feeding for now GI ppx - Pepcid 20 mg IV BID DVT ppx - Eliquis 5 mg OG BID Attestations Medical Necessity Statement*: Will require continued hospitalization for management of vent, respiratory failure due to COVID-19 and acute renal insufficiency Time Spent in Patient Care: 16 - 35 minutes (>than 50% of time spent in counselling and/or direct pt care on unit) . Critical Care Time: Critical Care Time (min): 55 Coding Level of Care Code Acute Processing Archivist for [facility] Fwd Diagnoses Acute respiratory failure with hypoxia J96.01 Pneumonia due to COVID-19 virus U07.1; J12.89 Dyslipidemia E78.5 Diabetes mellitus E11.69 Diabetes mellitus type: type 2 Diabetes mellitus long term care phlebotomist insulin use: unspecified long term care phlebotomist insulin use status Diabetes mellitus complication status: with other specified complication Hypertension I10 Hypertension type: unspecified
[2020-10-01 17:57] LABS: Creatine Phosphokinase 2712 U/L (39-308)
[2020-10-01 18:10] LABS: Glucose Point of Care 218 mg/dL (70-110)
[2020-10-01 18:57] LABS: Anion Gap 16.5 (5-19); Blood Urea Nitrogen 71 mg/dL (8-23); Calcium 7.5 mg/dL (8.5-10.5); Carbon Dioxide 19 mmol/L (22-29); Chloride 110 mmol/L (98-107); Glomerular Filtration Rate 28.8 mL/min (90-130); Glucose 209 mg/dL (65-115); Osmolality Calculated 319 mOsm/kg (285-295); Potassium 4.5 mmol/L (3.5-5.1); Sodium 141 mmol/L (136-145)
--- NOTE | 2020-10-01 20:01 | PC.NURSE ---
Patient proned at 1830 x3 nurses and 1 RT to control airway/tube. Patient tolerated well. Patient supine was 84%SPO2, Prone 96%SPO2.
--- NOTE | 2020-10-01 20:45 | PC.NURSE ---
Order Clarification. Called Dr. Dewitt on phone to give update on patient, and Rocuronium drip. RN discussed patient BIS being of 72 and that patient is trying to over breathe on the vent and is also hypertensive. Discussed the current drips and rate patient is on: Rocuronium 30mg/hr, Propofol 40mg/hr, Versed 3mg/hr and Fentanyl 100mcg/hr. stated that Max rates are Rocuronium 70mg/hr, Propofol 60mg/hr, Versed 10mg/hr and Fentanly 200mcg/hr. MD wanted the Rocuronium to be changed to 70mg/hr now. Read these dosages back to him and he agreed with the read back. Voiced concerns with MD that there is no current protocol on the administration, titration and management of the paralytic Rocuronium drip that is ordered. Also stated that the Rocuronium is running not by mcg/kg or mg/kg. Currently running at ml/hr. No new orders were given and Dr. Dewitt stated to call him if this was not keeping him paralyzed.
[2020-10-01 21:02] LABS: ABG PCO2 54.2 mmHg (35-45); Arterial Blood Gas Hematocrit 36.1 % (42-52); Base Excess ABG -8.5 mmol/L (-2.0-2.0); Blood Gas Allen Test Pos; Blood Gas Sample Site Not specified; Blood Gas Sample Type Arterial; HCO3 ABG 20.1 mmol/L (22-26); Oxygen Device VENT
[2020-10-01 21:03] LABS: ABG PH Result 7.18 (7.35-7.45)
[2020-10-01 21:57] LABS: ABG PCO2 44.5 mmHg (35-45); ABG PH Result 7.26 (7.35-7.45); Alveolar-Arterial Oxygen Gradi 61.2 mmHg (5-10); Base Excess ABG -7.1 mmol/L (-2.0-2.0); Blood Gas Allen Test Pos; Blood Gas Sample Type Arterial; Carboxyhemoglobin 0.7 %THgb (0.4-20.1); HCO3 ABG 19.8 mmol/L (22-26); HGB O2 Sat 96.1 % (95-100); Methemoglobin 1.1 % (0.4-1.5); Oxygen Device VENT; Oxygen Saturation ABG 97.9; Total Hemoglobin 12.1 g/dL (14-18)
[2020-10-01 22:27] LABS: Glucose Point of Care 217 mg/dL (70-110)
[2020-10-02] VITALS (73 sets, daily range): BP systolic 99–183; BP diastolic 62–97; PULSE 76–105; RESP 14–22; TEMP 36.9–37.5; O2SAT 80–99; BMI 29.7
[2020-10-02] MEDS: famotidine 20 mg/2 mL INJ IVP ×2 (01:00→13:27)
[2020-10-02] MEDS: ipratropium-albuterol 3 mL Neb INHALATION ×5 (03:13→20:30)
[2020-10-02] MEDS: sodium chloride 0.9% 1,000 ML 75 ML XX (04:05)
[2020-10-02 04:33] LABS: ABG PH Result 7.24 (7.35-7.45); Base Excess ABG -6.6 mmol/L (-2.0-2.0); Blood Gas Sample Type Arterial; HCO3 ABG 20.7 mmol/L (22-26); Oxygen Device VENT
--- NOTE | 2020-10-02 07:00 | XR_ITS ---
WS: [id number] PORTABLE CHEST HISTORY: Ventilated patient. COMPARISON: 09/30/2020 Endotracheal and nasogastric tubes remain in good position. RIGHT central line with tip in the distal SVC. There is of increased consolidation over the central and lower lung bacon. Slightly greater in the R IGHT lung. No improvement with slight progression of consolidation especially on the RIGHT. No pleura l effusion or pneumothorax. Cardiac size: Normal. Mediastinum/Aorta: Normal mediastinum. No osseous abnormality seen. XR/XR chest 1V portable [id number] IMPRESSION: 1. Endotracheal and nasogastric tubes and RIGHT central line remain in good po sitions. 2. Increasing consolidations in the central and lower lung bacon bilaterally.
[2020-10-02 07:22] LABS: Basophils % 0.2 %; Hematocrit 33.3 % (42.0-52.0); Hemoglobin 10.2 g/dL (11.7-16.6); Lymphocytes # 0.2 10^3/uL (0.8-4.8); Mean Corpuscular HGB Conc 30.6 g/dL (30.0-36.0); Mean Corpuscular Hemoglobin 28.2 pg (28.0-34.0); Mean Platelet Volume 11.1 fL (7.4-10.4); Monocytes # 0.4 10^3/uL (0.2-0.9); Monocytes % 6.3 %; Nucleated Red Blood Cells % 0 %; Platelet Count 195 10^3/cmm (130-400); Red Blood Count 3.62 10^6/uL (4.1-5.3); Red Cell Distribution Width 14.3 % (12.1-15.1); White Blood Count 5.7 10^3/uL (4.0-10.0)
--- NOTE | 2020-10-02 07:30 | PM.PN ---
Subjective Subjective: Interval history: intubated, sedated. no pressers Medications: Reviewed: Yes Medication Review Details: Current Medications Acetaminophen (Acetaminophen 325 Mg Tablet) 650 mg PO Q6H PRN PRN Reason: MILD PAIN Last Admin: 10/01/20 10:12 Dose: 650 mg Documented by: Albuterol/Ipratropium (Ipratropium-Albuterol 3 Ml Neb) 3 ml INHALATION Q4H.RESPIRATORY JAYSON Last Admin: 10/02/20 03:13 Dose: 3 ml Documented by: Apixaban (Apixaban 5 Mg Tablet) 5 mg PO BID COUNT INCLUDES THE [facility] Last Admin: 10/01/20 17:46 Dose: 5 mg Documented by: Artificial Tears (Artificial Tears Op Soln 15 Ml Btl) 1 drop EYE-BOTH Q4H PRN PRN Reason: DRY EYE(S) Dexamethasone (Dexamethasone 4 Mg/Ml Inj) 6 mg IVP Q24H JAYSON Stop: 10/07/20 16:29 Last Admin: 10/01/20 16:42 Dose: 6 mg Documented by: Dextrose (Dextrose 50% Syringe 50 Ml) 25 ml IVP ONCE PRN; Protocol PRN Reason: hypoglycemia protocol Dextrose (Dextrose 50% Syringe 50 Ml) 50 ml IVP PRN PRN; Protocol PRN Reason: hypoglycemia protocol Famotidine (Famotidine 20 Mg/2 Ml Inj) 20 mg IVP Q12H COUNT INCLUDES THE [facility] Last Admin: 10/02/20 01:00 Dose: 20 mg Documented by: Glucagon (Glucagon 1 Mg/Ml Inj 1 Ml) 1 mg IM ONCE PRN; Protocol PRN Reason: Adult Acute Hypoglycemia Prot. Dextrose (D5w) 500 mls @ 100 mls/hr IV ONCE PRN; Protocol PRN Reason: Adult Acute Hypoglycemia Prot Propofol (Diprivan) 1,000 mg in 100 mls @ 0 mls/hr IV .Q0M JAYSON; Protocol Last Titration: 10/02/20 00:15 Dose: 30 mcg/kg/min, 17.4 mls/hr Documented by: Norepinephrine Bitartrate 4 mg (/ Dextrose) 254 mls @ 0 mls/hr IV .Q0M JAYSON; Protocol Last Titration: 09/29/20 11:54 Dose: 0 mcg/min, 0 mls/hr Documented by: Sodium Chloride (Sodium Chloride 0.9%) 1,000 mls @ 0 mls/hr XX .Q0M JAYSON Last Admin: 10/02/20 04:05 Dose: 75 mls/hr Documented by: Sodium Chloride (Sodium Chloride 0.9%) 1,000 mls @ 100 mls/hr IV .Q10H JAYSON Last Admin: 10/01/20 23:50 Dose: 75 mls/hr Documented by: Rocuronium [place] 100 mg/ (Sodium Chloride) 100 mls @ 19.359 mls/hr IV .Q5H10M JAYSON Last Admin: 10/02/20 06:43 Dose: 0.31 mg/kg/hr, 30 mls/hr Documented by: Fentanyl 1,000 mcg/ Sodium (Chloride) 100 mls @ 0 mls/hr IV .Q0M JAYSON; Protocol Midazolam HCl 100 mg/ Sodium (Chloride) 100 mls @ 0 mls/hr IV .Q0M JAYSON; Protocol Insulin Aspart (Insulin Aspart 100 Unit/1 Ml) 0 unit SUBCUT WM&BEDTIME JAYSON; Protocol Last Admin: 10/01/20 22:31 Dose: 3 unit Documented by: Insulin Glargine (Insulin Glargine 100 Units/1 Ml) 10 unit SUBCUT BEDTIME COUNT INCLUDES THE [facility] Last Admin: 10/01/20 22:32 Dose: 10 unit Documented by: Zinc Gluconate (Zinc Gluconate 50 Mg Tablet) 50 mg PO DAILY COUNT INCLUDES THE [facility] Last Admin: 10/01/20 10:12 Dose: 50 mg Documented by: Vitals/I&O/Wt Last Vital Signs Temp 99.5 F 10/02/20 00:00 Pulse 77 10/02/20 06:30 Resp 20 H 10/02/20 04:45 BP 110/66 10/02/20 06:30 Pulse Ox 99 10/02/20 06:30 10/01/20 10/02/20 10/02/20 22:59 06:59 14:59 Intake Total 452.695 / 6161.043 9324.401 / 2860.954 Output Total 1000 / 1800 800 / 2600 Balance -547.305 / 16.553 244.401 / 260.954 Weight last 48 hrs Weight 96.797 kg Weight 96.797 kg Physical Exam Narrative: EXAM NARRATIVE: intubated, sedated. vent TV 500/ fio2 60%, PEEP 12, RR 20 heent- nc/at neck supple lungs b/l improved air movement heart reg, no m/r/g appreciated abd soft +BS ext no edema neuro- sedated Urinary Catheter Management^: Noel: Cath Placed During This Visit: yes Reason for Continuing Indwelling Catheter: Accurate Measurement of Urinary Output in Critically Ill Patients Urinary Catheter Date of Insertion: 09/27/20 Urinary Catheter Time of Insertion: 20:00 Data : 10/01/20 03:45 10/01/20 16:10 A&P Additional A&P Information Impression: 1. Acute nonoliguric kidney injury, urine chemistry consistent with prerenal azotemia vs ATN- renal fxn improving w/ ivf -rhabdomyolyisis- cr improving, ck stable- monitor - cont ivf and lasix- inc uop -monitor ck bid -low ur na noted -await renal us 2. hyponatremia- prerenal and COVID-19- improved w/ ivf 2. VDRF, pnuemonia, COVID -hypercapneic resp acidosis 3.DM control 5. echo okay 6. meds reviewed -poor MS discussed w/ RN Will follow with you. Attestations Medical Necessity Statement*: VDRF, rhando -mild, josee, covid-19 pna Time Spent in Patient Care: 16 - 35 minutes Coding Level of Care Code Acute Financial Consultant for Meeta Levy
--- NOTE | 2020-10-02 07:34 | US_ITS ---
WS: [id number] ULTRASOUND RENAL TECHNIQUE: Ultrasound examination of both kidneys. CLINICAL INFORMATION: josee COMPARISON: None. FINDINGS: RIGHT: Right kidney is normal in size and appearance. Echogenicity: Normal. Cortical thickness: 1.6 cm; Normal. Hydronephrosis: None. Perinephric fluid: None. Right kidney measures: 12.4 cm x 6.0 cm x 5.4 cm. LEFT: Left kidney is normal in size and appearance. Echogenicity: Normal. Cortical thickness: 1.5 cm; Normal. Hydronephrosis: None. Perinephric fluid: None. Left kidney measures: 14.0 cm x 6.0 cm x 5.5 cm. Normal visualized aorta. Noel catheter. US/US renal BI* [id number] IMPRESSION: Normal renal ultrasound.
[2020-10-02 07:55] LABS: Alanine Aminotransferase 39 U/L (0-41); Albumin Level 2.4 g/dL (3.5-5.2); Alkaline Phosphatase 70 IU/L (40-130); Anion Gap 17.9 (5-19); Aspartate Amino Transferase 53 U/L (0-40); Blood Urea Nitrogen 65 mg/dL (8-23); Calcium 7.5 mg/dL (8.5-10.5); Carbon Dioxide 21 mmol/L (22-29); Chloride 113 mmol/L (98-107); Globulin 3.1 g/dL (1.3-4.6); Glomerular Filtration Rate 30.3 mL/min (90-130); Glucose 245 mg/dL (65-115); Magnesium 3.3 mg/dL (1.7-2.3); Osmolality Calculated 329 mOsm/kg (285-295); Phosphorus 7.2 mg/dL (2.5-4.5); Potassium 5.9 mmol/L (3.5-5.1); Sodium 146 mmol/L (136-145); Total Bilirubin 0.7 mg/dL (0.15-1.2); Total Protein 5.5 g/dL (6.6-8.7)
[2020-10-02 08:23] LABS: Creatine Phosphokinase 1786 U/L (39-308)
[2020-10-02 09:00] LABS: Glucose Point of Care 203 mg/dL (70-110)
[2020-10-02] MEDS: artificial tears Op Soln 15 mL Btl 1 DROP EYE-BOTH ×3 (10:06→18:40)
[2020-10-02 11:48] LABS: Glucose Point of Care 182 mg/dL (70-110)
[2020-10-02 11:58] LABS: Osmolality Urine 409 mOsm/kg (50-1200)
--- NOTE | 2020-10-02 15:32 | P.PN_ITS ---
Subjective Subjective: Interval history: Hospital Course 65-year-old male with a past medical history significant for hypertension, dyslipidemia and diabetes mellitus who was recently diagnosed with COVID-19 infection requiring admission to [facility] on 09/26 for hypoxic respi ratory failure. patient was reported to have oxygen saturation in low 70s for which he was placed on 4 L however in the next 24 hours he progressively worsened. Noted to have increased work of breathing and high-flow O2 requirements. He was initiated on remdesivir of which she had received a loadi ng dose on 09/26 and 2nd day dose n 09/27 per tranfering physician. Bravo was also empirically started on azithromycin and cefdinir. Chest x-ray had showed findings consistent with COVID-19 pneumonia. And laboratory workup in review appeared to be stable except D-dimer which was above 7. He was empirically started on Eliquis 5 mg oral twice daily. Due to progressive decline patient [facility]. Upon arrival patient was found to be hypoxic ( sats in 70s) and in respiratory distress. He was immediately placed on BiPAP with Fio2 of 100% after which he gradually improved. arterial blood gases were obtained which showed a pH of 7.42, pCO2 of 31.9, PO2 of 51.8 and bicarb 20.5. Laboratory workup on arrival was repeated which showed a WBC of 7.0, hemoglobin 12.8, hematocrit 38.9 and a platelet count of 151. sodium 130, potassium 4.0, chloride 95, bicarb 20, BUN 13 and creatinine is 0.7. Lactic acid of 1.7. LFTs were within normal limits. Procalcitonin was 0.55. Shortly after arrival patient was noted to have respiratory failure with BiPAP requiring 100% FiO2. Due to this patient was intubated and placed on mechanical ventilation. Pulmonary medicine was consulted. Patient was noted to have severe adult respiratory distress syndrome likely from COVID-19 pneumonia. He was initiated on deep sedation protocol and subsequently started on NBM, initially with nimbex however to do low supply this was changed to rocoronium. Due to high dose requirement of sedatives to maintain deep sedation ( RASS -4) while on NMB he was note to have hypotensive episodes. Central line was placed and he was started on levophed. Fio2 was weaned to 50% on 09/30. NMB was held. Unfortunately his hospitalization was complicated with hyperglycemia likely due to decadron. In order to achieve blood glucose goal of less than 180 he was placed on insulin ggt per protocol. Also found to have worsening acute renal failure with creatinine increasing from 0.7 to 3.2 Ua NA was noted to be less than 20. Intravascular volume depletion and thus was initiated on NS at 75cc/hr. Nephrology was consulted. Subjective 09/28 Patient was intubated on placed on vent. Started on sedation in addition to nimbex. Was proned. Pulmonary consulted. 09/29 Overnight patient was changed from prone to supine. Remains stable. FiO2 was weaned to 90%. Continued on sedatives and paralytics. Did not have any fever episodes. 09/30 Patients Fio2 was weaned to 50%, Pao2/fio2 ratio was 138. His rocoronium was stopped. Noted to have stable urinary output however creatinine had worsened. Low grade fevers. 10/01 Overnight patient was noted have increased FiO2 requirements from 50 to 70. patient was breathing above the vent at a rate of 22. he was resumed on NMB ggt and plan to be place in prone position. Transitioned off insulin gtt to SQ ins ulin. 10/02 Patient was noted to have Tmax of 102. Fever noted yesterday am. Was placed again in prone position last evening. Remained on sedation. urine output increasing. Medications: Reviewed: Yes Medication Review Details: Current Medications Acetaminophen (Acetaminophen 325 Mg Tablet) 650 mg PO Q6H PRN PRN Reason: MILD PAIN Albuterol/Ipratropium (Ipratropium-Albuterol 3 Ml Neb) 3 ml INHALATION Q4H.RESPIRATORY JAYSON Last Admin: 10/01/20 08:27 Dose: 3 ml Documented by: Apixaban (Apixaban 5 Mg Tablet) 5 mg PO BID JAYSON Last Admin: 09/30/20 17:27 Dose: 5 mg Documented by: Dexamethasone (Dexamethasone 4 Mg/Ml Inj) 6 mg IVP Q24H [facility] Stop: 10/07/20 16:29 Last Admin: 09/30/20 15:33 Dose: 6 mg Documented by: Dextrose (Dextrose 50% Syringe 50 Ml) 25 ml IVP ONCE PRN; Protocol PRN Reason: hypoglycemia protocol Dextrose (Dextrose 50% Syringe 50 Ml) 50 ml IVP PRN PRN; Protocol PRN Reason: hypoglycemia protocol Famotidine (Famotidine 20 Mg/2 Ml Inj) 20 mg IVP Q12H JAYSON Last Admin: 10/01/20 01:50 Dose: 20 mg Documented by: Glucagon (Glucagon 1 Mg/Ml Inj 1 Ml) 1 mg IM ONCE PRN; Protocol PRN Reason: Adult Acute Hypoglycemia Prot. Dextrose (D5w) 500 mls @ 100 mls/hr IV ONCE PRN; Protocol PRN Reason: Adult Acute Hypoglycemia Prot Propofol (Diprivan) 1,000 mg in 100 mls @ 0 mls/hr IV .Q0M JAYSON; Protocol Last Admin: 10/01/20 07:45 Dose: 50 mcg/kg/min, 29 mls/hr Documented by: Fentanyl 1,000 mcg/ Sodium (Chloride) 100 mls @ 0 mls/hr IV .Q0M JAYSON; Protocol Last Titration: 10/01/20 05:00 Dose: 125 mcg/hr, 12.5 mls/hr Documented by: Midazolam HCl 100 mg/ Sodium (Chloride) 100 mls @ 0 mls/hr IV .Q0M JAYSON; Protocol Last Admin: 10/01/20 07:23 Dose: 5 mg/hr, 5 mls/hr Documented by: Norepinephrine Bitartrate 4 mg (/ Dextrose) 254 mls @ 0 mls/hr IV .Q0M JAYSON; Protocol Last Titration: 09/29/20 11:54 Dose: 0 mcg/min, 0 mls/hr Documented by: Sodium Chloride (Sodium Chloride 0.9%) 1,000 mls @ 0 mls/hr XX .Q0M JAYSON Insulin Human Regular 250 unit (/ Sodium Chloride) 252.5 mls @ 0 mls/hr IV .Q0M JAYSON; Protocol Last Titration: 10/01/20 05:45 Dose: 0.8 unit/hr, 0.8 mls/hr Documented by: Sodium Chloride (Sodium Chloride 0.9%) 1,000 mls @ 75 mls/hr IV .[id number] JAYSON Last Admin: 09/30/20 23:43 Dose: 75 mls/hr Documented by: Zinc Gluconate (Zinc Gluconate 50 Mg Tablet) 50 mg PO DAILY [facility] Last Admin: 09/30/20 08:38 Dose: 50 mg Documented by: Vitals/I&O/Wt Last Vital Signs Temp 99.5 F 10/02/20 14:00 Pulse 84 10/02/20 14:00 Resp 20 H 10/02/20 14:05 BP 116/64 10/02/20 14:00 Pulse Ox 93 10/02/20 14:00 10/02/20 10/02/20 10/02/20 06:59 14:59 22:59 Intake Total 1044.401 / 2860.954 200 / 200 Output Total 800 / 2600 Balance 244.401 / 260.954 200 / 200 Weight last 48 hrs Weight 96.797 kg Weight 96.797 kg Physical Exam Narrative: EXAM NARRATIVE: General - Intubated on MV HEENT- ET tube Chest - vented CVS- sinus tachycardia Abdomen- appeared non-distended Extremities- no edema Urinary Catheter Management^: Noel: Cath Placed During This Visit: yes Reason for Continuing Indwelling Catheter: Accurate Measurement of Urinary Output in Critically Ill Patients Urinary Catheter Date of Insertion: 09/27/20 Urinary Catheter Time of Insertion: 20:00 Data : 10/02/20 03:40 10/02/20 03:40 A&P Assessment and plan (1) Acute respiratory failure with hypoxia: Status: Acute (2) Pneumonia due to COVID-19 virus: Status: Acute (3) Dyslipidemia: Status: Acute (4) Diabetes mellitus: Status: Acute Qualifiers: Diabetes mellitus type: type 2 Diabetes mellitus skilled nursing insulin use: unspecified skilled nursing insulin use status Diabetes mellitus complication status: with other specified complication Qualified Code(s): E11.69 - Type 2 diabetes mellitus with other specified complication (5) Hypertension: Status: Acute Qualifiers: Hypertension type: unspecified Qualified Code(s): I10 - Essential (primary) hypertension Acute respiratory distress syndrome on Mechanical Ventilation ( 09/27 ) - Due to COVID 19 pneumonia - Non-cardiogenic Pulmonary edema Labs - 09/27 -ABG - PH 7.21, pCO2 60.2, PO2 of 54.2 and bicarb 24.4 - 09/28 -ABG - pH 7.21, pCO2 60.3, PO2 120, bicarb 24.2 - 09/29 -ABG - pH 7.33, pCO2 of 43.2, PO2 of 67, bicarb 22.6 on PC, Rate 22 PEEP of 14, Fio2 90%, - 09/30 - ABG 7.40, pCO2 of 31, Po2 of 63, Hco3 of 19.1 on pressure control / Fio2 of 50.0%, PEEP of 14, - 10/01 - ABG - 7.43, 31.8, Po2 57.3, HOC3 21 - Pro- BNP of 616 - Pro-calcitonin 0.55 Imaging : - 09/27 - Chest x-ray -. bilateral pulmonary consolidation L>R, ET tube 2 cm above tiburcio - 09/28 - Multi-lobar pneumonia slightly improved in left lung. - ECHO - LV function WNL - significantly elevated RA pressures. RV not well seen. Sedation/Paralytic - Propofol per protocol - Fentanyl - Versed - Rocoronium per protocol Meds: - Duo-neb q4-6hr scheduled - Decadron 6 mg IV daily - Eliquis 5 mg OG BID ( D-dimer > 7 prior to arrival ) Plan: - Tolerated Proning overnight 16 hr - transitioned to supine this am - Restart on alex per protocol - neural monitoring - will attempt proning again today - Continue on Propofol / Versed / Fenanyl for deep sedation - Titrate Levophed to keep MAP > 65 - Continue to wean FiO2 as tolerated - Initiated proning again today for 16hr - Continue pressure control ventilation - Repeat abg in am - D/w Pulmonary medicine COVID-19 Pneumonia with recurrent fever - Low suspicion of underlying bacterial pneumonia Labs - Dx of COVID on 09/26 - Ferritin 1976 -> 3574 - 1256 - CRP 188.8 - LDH - 439 - D-dimer 13.04 - Procal 0.55 Plan: - Completed Remdesivir on day 5/5 - Continue Decadron 6 mg IV daily - Q2-day Pro-calcitonin, Ferritin, CRP, LDH in am - T-max 102 - Blood culture x 2, tracheal aspirate culture, urine culture now - Continue to trend pro-hernandez - If persistent fevers or positive culture will start broad specturm abx - Droplet precaution Acute renal failure / Rhabdomyolysis / Hyperkalemia - Due to Hypotensive episodes, COVID-19 , rhabdo Labs : - Creatinine 0.7 - 1.2 - 2.2 - 3.2 - > 2.7 - UA NA - 18, Osm - pending - CK 2666 - > Improving Plan: - Continue IVF as per nephro - Noel in place - monitor urine ouput - 0.77 ml/kg/hr Uncontrolled Diabetes Mellitus with hyperglycemia - Complicated with decadron - Blood sugar goal < 180 - Hypoglycemia protocol - D/C Insulin gtt - Lantus 10 units am daiy - Blood sugar check q4hr - Sliding scale insulin - Will change to high dose sliding scale - May consider changing lantus to BID Hx of Hypertenison - Currently hypotensive likely due to sedatives - On Levophed to maintain MAP > 65 - D/C all anti-hypertensives. Hypovolemic Hyponatremia - Etiology multi-factorial - Sodium 130 - 134 - Ua NS 18 - Nephorology on board - Repeat BPM in AM Lines : - Central / Arterial ( 09/27) Tubes: - ET tube - OG - Noel FEN : - Holding tube feeding for now GI ppx - Pepcid 20 mg IV BID DVT ppx - Eliquis 5 mg OG BID Attestations Medical Necessity Statement*: Will require further hospitalization for man agment of covid 19 related ards on vent Time Spent in Patient Care: Greater than 35 minutes (>than 50% of time spent in counselling and/or direct pt care on unit) . 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
[2020-10-02] MEDS: propofol 1,000 MG/100 ML INJ 17.4 MG IV ×2 (16:14→16:15)
[2020-10-02] MEDS: apixaban 5 mg Tablet PO (16:25)
[2020-10-02] MEDS: dexamethasone 4 mg/mL INJ 6 MG IVP (16:25)
[2020-10-02 16:31] LABS: Lactic Sepsis W/Reflex 1.4 mmol/L (0.5-2.2)
[2020-10-02 16:32] LABS: Anion Gap 16.9 (5-19); Blood Urea Nitrogen 59 mg/dL (8-23); Calcium 7.6 mg/dL (8.5-10.5); Carbon Dioxide 20 mmol/L (22-29); Chloride 115 mmol/L (98-107); Glomerular Filtration Rate 40.8 mL/min (90-130); Glucose 169 mg/dL (65-115); Osmolality Calculated 324 mOsm/kg (285-295); Potassium 4.9 mmol/L (3.5-5.1); Sodium 147 mmol/L (136-145)
[2020-10-02] MEDS: dexmedetomidine 400 MCG in sodium chloride 0.9% (100 ml) 100 ML IV (16:53)
[2020-10-02 17:17] LABS: Glucose Point of Care 155 mg/dL (70-110)
[2020-10-02] MEDS: FUROsemide 10 mg/mL SDV 4mL 40 MG IVP (17:45)
[2020-10-02 18:00] LABS: Add Urine Microscopic? YES; Bilirubin Urine Neg (Negative); Blood Urine 3+ (Negative); Glucose Urine UA Norm (Normal); Ketones Urine Negative (Negative); Leukocyte Esterase Urine Negative (Negative); Nitrate Urine Negative (Negative); Protein Urine 1+ (Negative); Urine Appearance Clear (CLEAR); Urine Color Yellow (Yellow); Urobilinogen Urine 1 mg/dL (Negative); pH Urine 5 (5-7)
[2020-10-02 18:11] LABS: Add Urine Culture? Yes; Amorphous Sediment Urine 2+ /hpf; Bacteria Urine TRACE /hpf; RBC Urine 15-25 /hpf (0-2); Squamous Epithelial Cell Urine 0-4 /hpf (0-5)
[2020-10-02] MEDS: propofol 1,000 MG/100 ML INJ 29 MG IV (18:50)
[2020-10-02] MEDS: sodium chloride 0.9% 1,000 ML 100 ML IV (18:51)
--- NOTE | 2020-10-02 19:35 | PC.NURSE ---
SUPINE POSITIONING MULTIPLE STAFF TO REPOSITION PT BACK TO SUPINE FROM PRONE. TOLERATED WELL , ORAL CARE DONE, EYE DROPS,
--- NOTE | 2020-10-02 19:45 | PC.NURSE ---
UPDATED PT MANDEEP ON PT CONDITION.
--- NOTE | 2020-10-02 20:41 | P.PN_ITS ---
Subjective Subjective: Interval history: So far patient was proned 3 times FiO2 down to 50% and saturating 94% Off paralytic, off pressors and slowly coming down on sedation to check for mentation Otherwise hemodynamically stable Maintaining adequate urine output and labs suggestive of recovering renal functions Patient had fever spikes yesterday Medications: Reviewed: Yes Medication Review Details: Current Medications Acetaminophen (Acetaminophen 325 Mg Tablet) 650 mg PO Q6H PRN PRN Reason: MILD PAIN Albuterol/Ipratropium (Ipratropium-Albuterol 3 Ml Neb) 3 ml INHALATION Q4H.RESPIRATORY [facility] Last Admin: 10/01/20 08:27 Dose: 3 ml Documented by: Apixaban (Apixaban 5 Mg Tablet) 5 mg PO BID [facility] Last Admin: 09/30/20 17:27 Dose: 5 mg Documented by: Dexamethasone (Dexamethasone 4 Mg/Ml Inj) 6 mg IVP Q24H [facility] Stop: 10/07/20 16:29 Last Admin: 09/30/20 15:33 Dose: 6 mg Documented by: Dextrose (Dextrose 50% Syringe 50 Ml) 25 ml IVP ONCE PRN; Protocol PRN Reason: hypoglycemia protocol Dextrose (Dextrose 50% Syringe 50 Ml) 50 ml IVP PRN PRN; Protocol PRN Reason: hypoglycemia protocol Famotidine (Famotidine 20 Mg/2 Ml Inj) 20 mg IVP Q12H [facility] Last Admin: 10/01/20 01:50 Dose: 20 mg Documented by: Glucagon (Glucagon 1 Mg/Ml Inj 1 Ml) 1 mg IM ONCE PRN; Protocol PRN Reason: Adult Acute Hypoglycemia Prot. Dextrose (D5w) 500 mls @ 100 mls/hr IV ONCE PRN; Protocol PRN Reason: Adult Acute Hypoglycemia Prot Propofol (Diprivan) 1,000 mg in 100 mls @ 0 mls/hr IV .Q0M [facility]; Protocol Last Admin: 10/01/20 07:45 Dose: 50 mcg/kg/min, 29 mls/hr Documented by: Fentanyl 1,000 mcg/ Sodium (Chloride) 100 mls @ 0 mls/hr IV .Q0M [facility]; Protocol Last Titration: 10/01/20 05:00 Dose: 125 mcg/hr, 12.5 mls/hr Documented by: Midazolam HCl 100 mg/ Sodium (Chloride) 100 mls @ 0 mls/hr IV .Q0M [facility]; Protocol Last Admin: 10/01/20 07:23 Dose: 5 mg/hr, 5 mls/hr Documented by: Norepinephrine Bitartrate 4 mg (/ Dextrose) 254 mls @ 0 mls/hr IV .Q0M [facility]; Protocol Last Titration: 09/29/20 11:54 Dose: 0 mcg/min, 0 mls/hr Documented by: Sodium Chloride (Sodium Chloride 0.9%) 1,000 mls @ 0 mls/hr XX .Q0M [facility] Insulin Human Regular 250 unit (/ Sodium Chloride) 252.5 mls @ 0 mls/hr IV .Q0M [facility]; Protocol Last Titration: 10/01/20 05:45 Dose: 0.8 unit/hr, 0.8 mls/hr Documented by: Sodium Chloride (Sodium Chloride 0.9%) 1,000 mls @ 75 mls/hr IV .[id number] [facility] Last Admin: 09/30/20 23:43 Dose: 75 mls/hr Documented by: Zinc Gluconate (Zinc Gluconate 50 Mg Tablet) 50 mg PO DAILY [facility] Last Admin: 09/30/20 08:38 Dose: 50 mg Documented by: Vitals/I&O/Wt Last Vital Signs Temp 98.5 F 10/02/20 16:00 Pulse 86 10/02/20 20:30 Resp 21 H 10/02/20 20:33 BP 116/72 10/02/20 19:00 Pulse Ox 96 10/02/20 20:30 10/02/20 10/02/20 10/02/20 06:59 14:59 22:59 Intake Total 1044.401 / 2860.954 305.413 / 681.784 6085.903 / 2569.316 Output Total 800 / 2600 1800 / 1800 Balance 244.401 / 260.954 305.413 / 305.413 463.903 / 769.316 Weight last 48 hrs Weight 213 lb 6.4 oz Weight 213 lb 6.4 oz Physical Exam Narrative: EXAM NARRATIVE: PHYSICAL EXAM: General: lying in bed, sedated and intubated. HEENT:NCAT, PERRLA, EOMI Neck: Supple Lungs: Clear, Heart: s1/s2, RRR Abd: soft, NT, ND, BS + Normoactive Extremities: No edema NEUROLOGY SPECIALIST: sedated and limited NEUROLOGY SPECIALIST exam possible. SKIN: no rash LDA: # CVC: Right IJ 09/27/2020 # Turner: 09/26/2020 # A line: Right radial art line 09/27/2020 Urinary Catheter Management^: Turner: Cath Placed During This Visit: yes Reason for Continuing Indwelling Catheter: Accurate Measurement of Urinary Output in Critically Ill Patients Urinary Catheter Date of Insertion: 09/27/20 Urinary Catheter Time of Insertion: 20:00 Data : 10/02/20 03:40 10/02/20 15:30 Micro: Microbiology 10/02/20 11:20 Gram Stain - Final Sputum - Endotracheal Tube Aspirate 10/02/20 15:45 Blood Culture - Preliminary Blood SPECIMEN COLLECTED 10/02/20 15:20 Blood Culture - Preliminary Blood SPECIMEN COLLECTED A&P Assessment and plan (1) Pneumonia due to COVID-19 virus: Status: Acute (2) Acute respiratory failure with hypoxia: Status: Acute (3) Acute respiratory distress syndrome (ARDS) due to 2019 novel coronavirus: Status: Acute (4) Diabetes mellitus: Status: Acute Qualifiers: Diabetes mellitus type: type 2 Diabetes mellitus primary special educator insulin use: unspecified primary special educator insulin use status Diabetes mellitus complication status: with other specified complication Qualified Code(s): E11.69 - Type 2 diabetes mellitus with other specified complication (5) Hypertension: Status: Acute Qualifiers: Hypertension type: unspecified Qualified Code(s): I10 - Essential (primary) hypertension (6) Difficult ventilator weaning: Status: Acute 65 year old male past medical history of hypertension, dyslipidemia, diabetes mellitus recently diagnosed with COVID-19 infection admitted to viral ICU for management of acute hypoxemic respiratory failure secondary to acute respiratory distress syndrome due to COVID-19 pneumonia requiring intubation and mechanical ventilation. NEURO: -Off paralytic since today morning -currently tapering off sedation and is on fentanyl 50, Precedex 0.2 and propofol 25 -Continue awakening trial tomorrow and check for mentation PULM: #Acute hypoxic and hypercapneic respiratory failure secondary to ARDS due to COVID pna -Intubated on 09/27/2020 and currently on PC mode PIP 29, PEEP 12, FiO2 65%, with minute ventilation 13.6 -ABG today 30 PIP, PEEP 14, rate 22, and FiO2 70% - 7.24/48/125/20/95% -Had a 3 x 16-hour sessions of proning -CXR increasing consolidation in the central and lower lung bacon bilaterally -Elevated ferritin, please send other inflammatory markers ESR, LDH, CRP and repeat all 4 every 2 days to trend markers of inflammation -Completed remdesivir and on dexamethasone daily -DuoNeb nebulization every 6 hours CVS: -Shock secondary to COVID-19 pneumonia-resolved -Off pressors -Monitor heart rate and blood pressure -BNP 616; echo grossly LV systolic function is borderline normal. Normal diastolic function. Valvular structures not very well visualized. Significantly elevated RAP 15 GI: -N.p.o for now. -Recommended to start tube feeding from tomorrow -Protonix 40 mg daily for GI prophylaxis RENAL: -Improving renal functions -Sodium 147-monitor and DC NS -Normal lactic acid and improving CK -I/O/N 2860/2600/+260-adequate urine output 0.77 mL/kg/h -Continue turner cath -Avoid nephrotoxins -Monitor BUN/creatinine and electrolytes and supplement accordingly to keep k>4, Mg >2 HEM: H&H stable Plts stable,will trend Coags stable ENDO: #Diabetes mellitus -Uncontrolled sugars especially after starting steroids -On scale coverage requiring 30 units in last 8 hours -Would recommend IV insulin and check sugars every 1-2 hour -Alternately give 10 mg Lantus daily with high-dose scale coverage and check sugars every 6 hours ID: #Severe sepsis secondary to COVID pna #Temperature spikes noted yesterday -WBC 5.7K -Procalcitonin 0.55 -Follow-up blood cultures and sputum cultures; send for urine cultures -Monitor temperatures and WBC count -if any spike start broad-spectrum coverage with vancomycin/imipenem CODE STATUS: Full Prognosis: Critical Disposition: Remains in ICU Plan of care discussed and recommendations conveyed to Dr. Rodriguez (hospitalist covering the patient), RN and respiratory therapist. ICU CHECKLIST: Problem list updated Verbal orders reviewed and signed Analgesia: Fentanyl Glycemic Control: Insulin Nutrition: N.p.o.; start tube feeding tomorrow Restraint Renewal (within 24 hrs): Yes Ulcer Prophylaxis: H2 sara Chemical Thromboprophylaxis: Prophylaxis: Eliquis Mechanical Thromboprophylaxis: Yes Need for Central line: Yes this patient was on several sedatives, paralytic and pressors Need for Turner catheter: Yes for close urine output monitoring Critical Care Time (No Overlap): 45 min This patient has a high probability of sudden, clinically significant deterioration, which requires the highest level of physician preparedness to intervene urgently. I managed/supervised life or organ supporting interventions that required frequent physician assessment. I devoted my full attention in the ICU to the direct care of this patient for the period of time indicated above. Time I spent with family or surrogate(s) is included only if the patient was incapable of providing necessary information or participating in decision making. Time devoted to teaching and to any procedures I billed separately is not included. Services Provided: Telemetry review Mechanical Ventilation Hemodynamic interpretation, assessment and management Review and interpretation of CXR Review and interpretation of lab values Review and interpretation of microbiologic data and culture results Review of medications and administration Review and interpretation of Nutrition requirements and management Discussion of management with other consultants and services Clinical update to family members Attestations Medical Necessity Statement*: Acute hypoxic respiratory failure due to ARDS secondary to COVID-19 pneumonia still requiring mechanical ventilation and 65% FiO2, requires monitoring for renal functions Time Spent in Patient Care: Greater than 35 minutes (>than 50% of time spent in counselling and/or direct pt care on unit) . Critical Care Time: Critical Care Time (min): 45 Coding Level of Care Code Established Pt Acute Supervisor Asbestos Removal for Chg Fwd Patient Type Established History Comprehensive Exam Comprehensive Medical Decision Making High Complexity Diagnoses Pneumonia due to COVID-19 virus U07.1; J12.89 Acute respiratory failure with hypoxia J96.01 Acute respiratory distress syndrome (ARDS) due to 2019 novel coronavirus U07.1; J80 Diabetes mellitus E11.69 Diabetes mellitus type: type 2 Diabetes mellitus primary special educator insulin use: unspecified primary special educator insulin use status Diabetes mellitus complication status: with other specified complication Hypertension I10 Hypertension type: unspecified Difficult ventilator weaning Z99.11 Time Spent (min) 45
[2020-10-02 21:23] LABS: ABG PH Result 7.36 (7.35-7.45); Alveolar-Arterial Oxygen Gradi 38.7 mmHg (5-10); Arterial Blood Gas Hematocrit 44.5 % (42-52); Base Excess ABG -5.5 mmol/L (-2.0-2.0); Blood Gas Operator Identificat JB; Blood Gas Sample Site Brachial, right; Blood Gas Sample Type Arterial; Carboxyhemoglobin 0.6 %THgb (0.4-20.1); HCO3 ABG 19.1 mmol/L (22-26); HGB O2 Sat 97.4 % (95-100); Ionized Calcium Level - ABG 1.1 mmol/L (1.1-1.4); Methemoglobin 0.9 % (0.4-1.5); Oxygen Device VENT; Oxygen Saturation ABG 98.9; Potassium Level - ABG 5.2 mmol/L (3.5-5.0); Total Hemoglobin 14.5 g/dL (14-18)
[2020-10-02] MEDS: insulin glargine 100 units/1 mL 10 UNIT SUBCUT (21:35)
[2020-10-02 21:36] LABS: Glucose Point of Care 245 mg/dL (70-110)
[2020-10-02] MEDS: propofol 1,000 MG/100 ML INJ 11.6 MG IV (23:07)
--- NOTE | 2020-10-02 23:25 | PC.NURSE ---
Received bedside report on patient from Yeni ROWELL. Assumed care at this time.
[2020-10-03] VITALS (60 sets, daily range): BP systolic 67–199; BP diastolic 42–105; PULSE 76–115; RESP 18–31; TEMP 37.1–39.6; O2SAT 84–98; BMI 29.7
[2020-10-03] MEDS: ipratropium-albuterol 3 mL Neb INHALATION ×6 (00:07→19:50)
[2020-10-03] MEDS: famotidine 20 mg/2 mL INJ IVP ×2 (01:51→12:51)
[2020-10-03 02:14] LABS: Glucose Point of Care 251 mg/dL (70-110)
[2020-10-03] MEDS: artificial tears Op Soln 15 mL Btl 1 DROP EYE-BOTH ×7 (03:25→23:45)
[2020-10-03] MEDS: propofol 1,000 MG/100 ML INJ 29 MG IV ×3 (04:13→10:23)
[2020-10-03 04:21] LABS: Ketone (Acetest) Serum Negative (Negative)
[2020-10-03 04:28] LABS: Alanine Aminotransferase 38 U/L (0-41); Albumin Level 2.3 g/dL (3.5-5.2); Alkaline Phosphatase 90 IU/L (40-130); Anion Gap 16.5 (5-19); Aspartate Amino Transferase 42 U/L (0-40); Blood Urea Nitrogen 66 mg/dL (8-23); Calcium 8.1 mg/dL (8.5-10.5); Carbon Dioxide 21 mmol/L (22-29); Chloride 115 mmol/L (98-107); Globulin 3.8 g/dL (1.3-4.6); Glomerular Filtration Rate 38.2 mL/min (90-130); Glucose 303 mg/dL (65-115); Magnesium 3.3 mg/dL (1.7-2.3); Osmolality Calculated 334 mOsm/kg (285-295); Phosphorus 3.1 mg/dL (2.5-4.5); Potassium 5.5 mmol/L (3.5-5.1); Sodium 147 mmol/L (136-145); Total Bilirubin 0.8 mg/dL (0.15-1.2); Total Protein 6.1 g/dL (6.6-8.7)
[2020-10-03 04:34] LABS: Creatine Phosphokinase 1261 U/L (39-308)
[2020-10-03] MEDS: sodium chloride 0.9% 1,000 ML 100 ML IV (05:00)
[2020-10-03 06:38] LABS: Glucose Point of Care 226 mg/dL (70-110)
--- NOTE | 2020-10-03 07:42 | PM.PN ---
Subjective Subjective: Interval history: sedated, vent- no pressers Medications: Reviewed: Yes Medication Review Details: Current Medications Acetaminophen (Acetaminophen 325 Mg Tablet) 650 mg PO Q6H PRN PRN Reason: MILD PAIN Last Admin: 10/01/20 10:12 Dose: 650 mg Documented by: Albuterol/Ipratropium (Ipratropium-Albuterol 3 Ml Neb) 3 ml INHALATION Q4H.RESPIRATORY [facility] Last Admin: 10/03/20 03:20 Dose: 3 ml Documented by: Apixaban (Apixaban 5 Mg Tablet) 5 mg PO BID [facility] Last Admin: 10/02/20 16:25 Dose: 5 mg Documented by: Artificial Tears (Artificial Tears Op Soln 15 Ml Btl) 1 drop EYE-BOTH Q4H [facility] Last Admin: 10/03/20 03:25 Dose: 1 drop Documented by: Dexamethasone (Dexamethasone 4 Mg/Ml Inj) 6 mg IVP Q24H [facility] Stop: 10/07/20 16:29 Last Admin: 10/02/20 16:25 Dose: 6 mg Documented by: Dextrose (Dextrose 50% Syringe 50 Ml) 25 ml IVP ONCE PRN; Protocol PRN Reason: hypoglycemia protocol Dextrose (Dextrose 50% Syringe 50 Ml) 50 ml IVP PRN PRN; Protocol PRN Reason: hypoglycemia protocol Famotidine (Famotidine 20 Mg/2 Ml Inj) 20 mg IVP Q12H [facility] Last Admin: 10/03/20 01:51 Dose: 20 mg Documented by: Glucagon (Glucagon 1 Mg/Ml Inj 1 Ml) 1 mg IM ONCE PRN; Protocol PRN Reason: Adult Acute Hypoglycemia Prot. Dextrose (D5w) 500 mls @ 100 mls/hr IV ONCE PRN; Protocol PRN Reason: Adult Acute Hypoglycemia Prot Propofol (Diprivan) 1,000 mg in 100 mls @ 0 mls/hr IV .Q0M [facility]; Protocol Last Admin: 10/03/20 04:13 Dose: 50 mcg/kg/min, 29 mls/hr Documented by: Norepinephrine Bitartrate 4 mg (/ Dextrose) 254 mls @ 0 mls/hr IV .Q0M [facility]; Protocol Last Titration: 09/29/20 11:54 Dose: 0 mcg/min, 0 mls/hr Documented by: Sodium Chloride (Sodium Chloride 0.9%) 1,000 mls @ 0 mls/hr XX .Q0M [facility] Last Infusion: 10/02/20 19:33 Dose: Infused Documented by: Sodium Chloride (Sodium Chloride 0.9%) 1,000 mls @ 100 mls/hr IV .Q10H [facility] Last Admin: 10/03/20 05:00 Dose: 100 mls/hr Documented by: Rocuronium [place] 100 mg/ (Sodium Chloride) 100 mls @ 19.359 mls/hr IV .Q5H10M [facility] Last Infusion: 10/02/20 15:00 Dose: 0 mg/kg/hr, 0 mls/hr Documented by: Fentanyl 1,000 mcg/ Sodium (Chloride) 100 mls @ 0 mls/hr IV .Q0M [facility]; Protocol Last Titration: 10/02/20 15:00 Dose: 0 mcg/hr, 0 mls/hr Documented by: Dexmedetomidine HCl 400 mcg/ (Sodium Chloride) 104 mls @ 0 mls/hr IV .Q0M [facility]; Protocol Last Admin: 10/02/20 16:53 Dose: 0.2 mcg/kg/hr, 5 mls/hr Documented by: Fentanyl 1,000 mcg/ Sodium (Chloride) 100 mls @ 0 mls/hr IV .Q0M [facility]; Protocol Last Admin: 10/02/20 22:27 Dose: 50 mcg/hr, 5 mls/hr Documented by: Insulin Aspart (Insulin Aspart 100 Unit/1 Ml) 0 unit SUBCUT Q4H [facility]; Protocol Last Admin: 10/03/20 06:48 Dose: 5 unit Documented by: Insulin Glargine (Insulin Glargine 100 Units/1 Ml) 10 unit SUBCUT BEDTIME [facility] Last Admin: 10/02/20 21:35 Dose: 10 unit Documented by: Midazolam HCl (Midazolam 1 Mg/Ml Inj 2 Ml) 2 mg IVP Q2H PRN PRN Reason: SEDATION Zinc Gluconate (Zinc Gluconate 50 Mg Tablet) 50 mg PO DAILY [facility] Last Admin: 10/02/20 10:04 Dose: Not Given Documented by: Vitals/I&O/Wt Last Vital Signs Temp 98.7 F 10/03/20 00:00 Pulse 115 H 10/03/20 06:15 Resp 22 H 10/03/20 03:21 BP 199/104 10/03/20 06:15 Pulse Ox 94 10/03/20 06:15 10/02/20 10/03/20 10/03/20 22:59 06:59 14:59 Intake Total 2363.903 / 2669.316 1081.296 / 3750.612 Output Total 4400 / 4400 1800 / 6200 Balance -2036.097 / -1730.684 -718.704 / -2449.388 Weight last 48 hrs Weight 96.797 kg Weight 96.797 kg Physical Exam Narrative: EXAM NARRATIVE: intubated, sedated. vent Pc/AC fio2 45%, PEEP 12, RR 20 heent- nc/at neck supple lungs b/l improved air movement heart reg, no m/r/g appreciated abd soft +BS ext + b/l leg edema neuro- sedated Urinary Catheter Management^: Noel: Cath Placed During This Visit: yes Reason for Continuing Indwelling Catheter: Accurate Measurement of Urinary Output in Critically Ill Patients Urinary Catheter Date of Insertion: 09/27/20 Urinary Catheter Time of Insertion: 20:00 Data : 10/02/20 03:40 10/03/20 03:10 Micro: Microbiology 10/02/20 11:20 Gram Stain - Final Sputum - Endotracheal Tube Aspirate 10/02/20 15:45 Blood Culture - Preliminary Blood SPECIMEN COLLECTED 10/02/20 15:20 Blood Culture - Preliminary Blood SPECIMEN COLLECTED A&P Additional A&P Information Impression: 1. Acute nonoliguric kidney injury, urine chemistry consistent with prerenal azotemia vs ATN- renal fxn improving w/ ivf -rhabdomyolyisis- cr improving, ck improving - cont ivf -d/c lasix- as hypernatremia -monitor ck daily -low ur na noted - renal us - rt 12.4 cm, left 14 cm- no hydronephrosis 2. hypernatremia- hold lasix- change ivf to 1/2 ns 3. hyperkalemia- kayexalate and monitor 3. VDRF, pnuemonia, COVID -hypercapneic resp acidosis 4.DM control -glucose 300 5. echo okay 6. meds reviewed -poor MS discussed w/ RN Will follow with you. Attestations Medical Necessity Statement*: vdrf, hyperkalemia, rhabdomyolysis, COVID-19 pna Time Spent in Patient Care: Greater than 35 minutes Coding Level of Care Code Acute Sales Analytics Manager for Meeta Levy
[2020-10-03] MEDS: apixaban 5 mg Tablet PO (08:22)
[2020-10-03] MEDS: zinc gluconate 50 mg Tablet PO (08:22)
[2020-10-03] MEDS: midazolam 1 mg/mL INJ 2 mL 2 MG IVP ×3 (08:22→15:48)
[2020-10-03] MEDS: sodium polystyrene sulfonate 15 gm/60 mL Btl PO ×2 (09:14→18:39)
[2020-10-03] MEDS: vancomycin 1,500 MG/300 ML PIGGYBACK 200 MG IV (09:14)
[2020-10-03] MEDS: carvedilol 12.5 mg Tablet PO (09:14)
[2020-10-03] MEDS: sodium chloride 0.45% 1,000 ML 100 ML IV ×2 (09:15→20:15)
[2020-10-03 10:21] LABS: Glucose Point of Care 142 mg/dL (70-110)
[2020-10-03] MEDS: insulin glargine 100 units/1 mL 10 UNIT SUBCUT ×2 (11:19→21:21)
[2020-10-03] MEDS: piperacillin-tazobactam 3.375 GM in sodium chloride 0.9% (plus) 50 ML IV (11:27)
[2020-10-03 13:36] LABS: Glucose Point of Care 99 mg/dL (70-110)
[2020-10-03] MEDS: propofol 1,000 MG/100 ML INJ 35 MG IV ×2 (13:50→17:20)
[2020-10-03 14:13] LABS: Anion Gap 14.3 (5-19); Blood Urea Nitrogen 66 mg/dL (8-23); Calcium 7.8 mg/dL (8.5-10.5); Carbon Dioxide 21 mmol/L (22-29); Chloride 120 mmol/L (98-107); Glomerular Filtration Rate 38.2 mL/min (90-130); Glucose 120 mg/dL (65-115); Osmolality Calculated 330 mOsm/kg (285-295); Potassium 5.3 mmol/L (3.5-5.1); Sodium 150 mmol/L (136-145)
[2020-10-03 15:43] LABS: ABG PCO2 28.7 mmHg (35-45); Alveolar-Arterial Oxygen Gradi 33.5 mmHg (5-10); Arterial Blood Gas Hematocrit 29.2 % (42-52); Base Excess ABG -6.1 mmol/L (-2.0-2.0); Blood Gas Operator Identificat CAK; Blood Gas Sample Site ARTLINE; Blood Gas Sample Type Arterial; HCO3 ABG 17.8 mmol/L (22-26); HGB O2 Sat 89.6 % (95-100); Ionized Calcium Level - ABG 1.1 mmol/L (1.1-1.4); Methemoglobin 0.9 % (0.4-1.5); Oxygen Device VENT; Oxygen Saturation ABG 91.4; PO2 ABG 63.3 mmHg (80.0-100.0); Potassium Level - ABG 4.6 mmol/L (3.5-5.0); Total Hemoglobin 9.5 g/dL (14-18)
[2020-10-03] MEDS: dexamethasone 4 mg/mL INJ 6 MG IVP (15:48)
--- NOTE | 2020-10-03 16:05 | P.PN_ITS ---
Subjective Subjective: Interval history: Hospital Course 65-year-old male with a past medical history significant for hypertension, dyslipidemia and diabetes mellitus who was recently diagnosed with COVID-19 infection requiring admission to [facility] on 09/26 for hypoxic respi ratory failure. patient was reported to have oxygen saturation in low 70s for which he was placed on 4 L however in the next 24 hours he progressively worsened. Noted to have increased work of breathing and high-flow O2 requirements. He was initiated on remdesivir of which she had received a loadi ng dose on 09/26 and 2nd day dose n 09/27 per tranfering physician. Bravo was also empirically started on azithromycin and cefdinir. Chest x-ray had showed findings consistent with COVID-19 pneumonia. And laboratory workup in review appeared to be stable except D-dimer which was above 7. He was empirically started on Eliquis 5 mg oral twice daily. Due to progressive decline patient was transferred to [facility] viral ICU. Upon arrival patient was found to be hypoxic ( sats in 70s) and in respiratory distress. He was immediately placed on BiPAP with Fio2 of 100% after which he gradually improved. arterial blood gases were obtained which showed a pH of 7.42, pCO2 of 31.9, PO2 of 51.8 and bicarb 20.5. Laboratory workup on arrival was repeated which showed a WBC of 7.0, hemoglobin 12.8, hematocrit 38.9 and a platelet count of 151. sodium 130, potassium 4.0, chloride 95, bicarb 20, BUN 13 and creatinine is 0.7. Lactic acid of 1.7. LFTs were within normal limits. Procalcitonin was 0.55. Shortly after arrival patient was noted to have respiratory failure with BiPAP requiring 100% FiO2. Due to this patient was intubated and placed on mechanical ventilation. Pulmonary medicine was consulted. Patient was noted to have severe adult respiratory distress syndrome likely from COVID-19 pneumonia. He was initiated on deep sedation protocol and subsequently started on NBM, initially with nimbex however to do low supply this was changed to rocoronium. Due to high dose requirement of sedatives to maintain deep sedation ( RASS -4) while on NMB he was note to have hypotensive episodes. Central line was placed and he was started on levophed. Fio2 was weaned to 50% on 09/30. NMB was held. Unfortunately his hospitalization was complicated with hyperglycemia likely due to decadron. In order to achieve blood glucose goal of less than 180 he was placed on insulin ggt per protocol. Also found to have worsening acute renal failure with creatinine increasing from 0.7 to 3.2 Ua NA was noted to be less than 20. Intravascular volume depletion and thus was initiated on NS at 75cc/hr. Nephrology was consulted. Subjective 09/28 Patient was intubated on placed on vent. Started on sedation in addition to nimbex. Was proned. Pulmonary consulted. 09/29 Overnight patient was changed from prone to supine. Remains stable. FiO2 was weaned to 90%. Continued on sedatives and paralytics. Did not have any fever episodes. 09/30 Patients Fio2 was weaned to 50%, Pao2/fio2 ratio was 138. His rocoronium was stopped. Noted to have stable urinary output however creatinine had worsened. Low grade fevers. 10/01 Overnight patient was noted have increased FiO2 requirements from 50 to 70. patient was breathing above the vent at a rate of 22. he was resumed on NMB ggt and plan to be place in prone position. Transitioned off insulin gtt to SQ ins ulin. 10/02 Patient was noted to have Tmax of 102. Fever noted yesterday am. Was placed again in prone position last evening. Remained on sedation. urine output increasing. 10/03 Overnight patient remained stable However did have an episode of fever this morning. T-max of 102?. Also noted to be hyperglycemic. Given Lasix last night. noted > 3l u/o . Medications: Reviewed: Yes Medication Review Details: Current Medications Acetaminophen (Acetaminophen 325 Mg Tablet) 650 mg PO Q6H PRN PRN Reason: MILD PAIN Albuterol/Ipratropium (Ipratropium-Albuterol 3 Ml Neb) 3 ml INHALATION Q 4H.RESPIRATORY JAYSON Last Admin: 10/01/20 08:27 Dose: 3 ml Documented by: Apixaban (Apixaban 5 Mg Tablet) 5 mg PO BID JAYSON Last Admin: 09/30/20 17:27 Dose: 5 mg Documented by: Dexamethasone (Dexamethasone 4 Mg/Ml Inj) 6 mg IVP Q24H JAYSON Stop: 10/07/20 16:29 Last Admin: 09/30/20 15:33 Dose: 6 mg Documented by: Dextrose (Dextrose 50% Syringe 50 Ml) 25 ml IVP ONCE PRN; Protocol PRN Reason: hypoglycemia protocol Dextrose (Dextrose 50% Syringe 50 Ml) 50 ml IVP PRN PRN; Protocol PRN Reason: hypoglycemia protocol Famotidine (Famotidine 20 Mg/2 Ml Inj) 20 mg IVP Q12H [facility] Last Admin: 10/01/20 01:50 Dose: 20 mg Documented by: Glucagon (Glucagon 1 Mg/Ml Inj 1 Ml) 1 mg IM ONCE PRN; Protocol PRN Reason: Adult Acute Hypoglycemia Prot. Dextrose (D5w) 500 mls @ 100 mls/hr IV ONCE PRN; Protocol PRN Reason: Adult Acute Hypoglycemia Prot Propofol (Diprivan) 1,000 mg in 100 mls @ 0 mls/hr IV .Q0M JAYSON; Protocol Last Admin: 10/01/20 07:45 Dose: 50 mcg/kg/min, 29 mls/hr Documented by: Fentanyl 1,000 mcg/ Sodium (Chloride) 100 mls @ 0 mls/hr IV .Q0M JAYSON; Protocol Last Titration: 10/01/20 05:00 Dose: 125 mcg/hr, 12.5 mls/hr Documented by: Midazolam HCl 100 mg/ Sodium (Chloride) 100 mls @ 0 mls/hr IV .Q0M JAYSON; Protocol Last Admin: 10/01/20 07:23 Dose: 5 mg/hr, 5 mls/hr Documented by: Norepinephrine Bitartrate 4 mg (/ Dextrose) 254 mls @ 0 mls/hr IV .Q0M JYASON; Protocol Last Titration: 09/29/20 11:54 Dose: 0 mcg/min, 0 mls/hr Documented by: Sodium Chloride (Sodium Chloride 0.9%) 1,000 mls @ 0 mls/hr XX .Q0M JAYSON Insulin Human Regular 250 unit (/ Sodium Chloride) 252.5 mls @ 0 mls/hr IV .Q0M JAYSON; Protocol Last Titration: 10/01/20 05:45 Dose: 0.8 unit/hr, 0.8 mls/hr Documented by: Sodium Chloride (Sodium Chloride 0.9%) 1,000 mls @ 75 mls/hr IV .[id number] JAYSON Last Admin: 09/30/20 23:43 Dose: 75 mls/hr Documented by: Zinc Gluconate (Zinc Gluconate 50 Mg Tablet) 50 mg PO DAILY [facility] Last Admin: 09/30/20 08:38 Dose: 50 mg Documented by: Vitals/I&O/Wt Last Vital Signs Temp 102.7 F H 10/03/20 08:00 Pulse 89 10/03/20 15:22 Resp 23 H 10/03/20 15:18 BP 107/66 10/03/20 10:00 Pulse Ox 90 10/03/20 15:17 10/03/20 10/03/20 10/03/20 06:59 14:59 22:59 Intake Total 1081.296 / 3750.612 723.95 / 723.95 Output Total 1800 / 6200 0 / 0 Balance -718.704 / -2449.388 723.95 / 723.95 Weight last 48 hrs Weight 96.797 kg Weight 96.797 kg Physical Exam Narrative: EXAM NARRATIVE: General - Intubated on MV HEENT- ET tube Chest - vented CVS- sinus tachycardia Abdomen- appeared non-distended Extremities- no edema Urinary Catheter Management^: Noel: Cath Placed During This Visit: yes Reason for Continuing Indwelling Catheter: Accurate Measurement of Urinary Output in Critically Ill Patients Urinary Catheter Date of Insertion: 09/27/20 Urinary Catheter Time of Insertion: 20:00 Data : 10/02/20 03:40 10/03/20 13:27 Micro: Microbiology 10/02/20 15:20 Blood Culture - Preliminary Blood 10/02/20 15:45 Blood Culture - Preliminary Blood 10/02/20 11:20 Gram Stain - Final Sputum - Endotracheal Tube Aspirate Sputum Culture - Preliminary Staphylococcus aureus 10/03/20 07:55 Blood Culture - Preliminary Blood SPECIMEN COLLECTED 10/03/20 07:50 Blood Culture - Preliminary Blood SPECIMEN COLLECTED A&P Assessment and plan (1) Acute respiratory failure with hypoxia: Status: Acute (2) Pneumonia due to COVID-19 virus: Status: Acute (3) Dyslipidemia: Status: Acute (4) Diabetes mellitus: Status: Acute Qualifiers: Diabetes mellitus type: type 2 Diabetes mellitus exterminator termite insulin use: unspecified exterminator termite insulin use status Diabetes mellitus complication status: with other specified complication Qualified Code(s): E11.69 - Type 2 diabetes mellitus with other specified complication (5) Hypertension: Status: Acute Qualifiers: Hypertension type: unspecified Qualified Code(s): I10 - Essential (primary) hypertension Acute respiratory distress syndrome on Mechanical Ventilation ( 09/27 ) - Due to COVID 19 pneumonia - Non-cardiogenic Pulmonary edema Labs - 09/27 -ABG - PH 7.21, pCO2 60.2, PO2 of 54.2 and bicarb 24.4 - 09/28 -ABG - pH 7.21, pCO2 60.3, PO2 120, bicarb 24.2 - 09/29 -ABG - pH 7.33, pCO2 of 43.2, PO2 of 67, bicarb 22.6 on PC, Rate 22 PEEP of 14, Fio2 90%, - 09/30 - ABG 7.40, pCO2 of 31, Po2 of 63, Hco3 of 19.1 on pressure control / Fio2 of 50.0%, PEEP of 14, - 10/01 - ABG - 7.43, 31.8, Po2 57.3, HOC3 21 - Pro- BNP of 616 - Pro-calcitonin 0.55 Imaging : - 09/27 - Chest x-ray -. bilateral pulmonary consolidation L>R, ET tube 2 cm above tiburcio - 09/28 - Multi-lobar pneumonia slightly improved in left lung. - ECHO - LV function WNL - significantly elevated RA pressures. RV not well seen. Sedation/Paralytic - Propofol per protocol - Fentanyl - Versed - Rocoronium per protocol Meds: - Duo-neb q4-6hr scheduled - Decadron 6 mg IV daily - Eliquis 5 mg OG BID ( D-dimer > 7 prior to arrival ) Plan: - Completed 3 days of proning - Continue precedex and fentanyl for sedation - PRN Versed - Titrate off levophed if possible - Continue to wean FiO2 as tolerated - Continue pressure control ventilation - Continue current settings - Repeat ABG in PM - Repeat abg in am / Repeat chest x-ray in am - D/w Pulmonary medicine COVID-19 Pneumonia with recurrent fever - Low suspicion of underlying bacterial pneumonia Labs - Dx of COVID on 09/26 - Ferritin 1976 -> 3574 - 1256 - CRP 188.8 - LDH - 439 - D-dimer 13.04 - Procal 0.55 Plan: - Completed Remdesivir x 5 days - Continue Decadron 6 mg IV daily - Q2-day Pro-calcitonin, Ferritin, CRP, LDH in am - T-max 102 this AM - Blood culture x 2, tracheal aspirate culture, urine culture - pending - NGTD - Started empirically on vancomycin pharmacy to dose - Change zosyn to Primixin 500mg IV q6hr - Continue to trend pro-hernandez Acute renal failure / Rhabdomyolysis / Hyperkalemia - Due to Hypotensive episodes, COVID-19 , rhabdo Labs : - Creatinine 0.7 - 1.2 - 2.2 - 3.2 - > 2.7 - 1.8 - CK 2666 - > Improving Plan: - Continue IVF as per nephro - currently on 100 cc/hr - s/p Lasix 40 mg IV x 1 on 10/02 - Replace K as needed - Noel in place - Na increased today to 150 - started on free h20 flush per OG - Repeat labs in am Uncontrolled Diabetes Mellitus with hyperglycemia - Complicated with decadron - Blood sugar goal < 180 - Hypoglycemia protocol - Lantus 10 Units BID - Blood sugar check q4hr - Sliding scale insulin - High dose - Will change to high dose sliding scale - May consider increasing lantus dose Hx of Hypertenison - Currently hypotensive likely due to sedatives - On Levophed to maintain MAP > 65 - D/C all anti-hypertensives. Lines : - Central / Arterial ( 09/27) Tubes: - ET tube - OG - Noel FEN : - Initiate tube feedings now - COnsult with senior professional services consultant - 150ml q6hr Free h20 flush GI ppx - Pepcid 20 mg IV BID DVT ppx - Eliquis 5 mg OG BID - STOPED - Changed to lovenox 40 mg SQ daily Attestations Medical Necessity Statement*: Continue hospitalization for management of respiratory failure requiring mechanical ventilation Time Spent in Patient Care: Greater than 35 minutes (>than 50% of time spent in counselling and/or direct pt care on unit) . Critical Care Time: Critical Care Time (min): 45 Coding Level of Care Code Acute Lead Principal Technical Architect for [facility] Fwd Diagnoses Acute respiratory failure with hypoxia J96.01 Pneumonia due to COVID-19 virus U07.1; J12.89 Dyslipidemia E78.5 Diabetes mellitus E11.69 Diabetes mellitus type: type 2 Diabetes mellitus senior living insulin use: unspecified exterminator termite insulin use status Diabetes mellitus complication status: with other specified complication Hypertension I10 Hypertension type: unspecified
[2020-10-03] MEDS: dexmedetomidine 400 MCG in sodium chloride 0.9% (100 ml) 100 ML 10.1 MCG IV (17:20)
[2020-10-03 17:39] LABS: Glucose Point of Care 111 mg/dL (70-110)
[2020-10-03] MEDS: dextrose 50% syringe 50 mL 25 ML IVP (18:40)
[2020-10-03] MEDS: insulin regular-human 5 UNIT in SYRINGE 1 EACH 1 UNIT IVP (18:41)
--- NOTE | 2020-10-03 19:57 | PC.NURSE ---
Received bedside report on patient from Yeni ROWELL. Drips and concentrations verified by off going nurse Yeni ROWELL and myself as oncoming nurse. Assumed care at this time.
[2020-10-03] MEDS: enoxaparin 40 mg/0.4 mL Syringe SUBCUT (20:17)
[2020-10-03 21:03] LABS: Glucose Point of Care 149 mg/dL (70-110)
[2020-10-03] MEDS: propofol 1,000 MG/100 ML INJ 23.2 MG IV (21:30)
[2020-10-04] VITALS (48 sets, daily range): BP systolic 99–132; BP diastolic 53–79; PULSE 68–81; RESP 14–31; TEMP 37.3–38.4; O2SAT 83–93; BMI 29.7
[2020-10-04] MEDS: ipratropium-albuterol 3 mL Neb INHALATION ×6 (00:05→19:56)
[2020-10-04] MEDS: propofol 1,000 MG/100 ML INJ 23.2 MG IV ×5 (00:46→15:18)
[2020-10-04] MEDS: famotidine 20 mg/2 mL INJ IVP ×2 (01:00→12:14)
[2020-10-04 02:39] LABS: Glucose Point of Care 248 mg/dL (70-110)
[2020-10-04] MEDS: artificial tears Op Soln 15 mL Btl 1 DROP EYE-BOTH ×5 (03:15→21:16)
[2020-10-04 03:51] LABS: ABG PH Result 7.32 (7.35-7.45); Arterial Blood Gas Hematocrit 48.5 % (42-52); Base Excess ABG -8.2 mmol/L (-2.0-2.0); Blood Gas Operator Identificat CAK; Blood Gas Sample Site ALINE; Blood Gas Sample Type Arterial; HCO3 ABG 16.8 mmol/L (22-26); Oxygen Device VENT; PO2 ABG 67.5 mmHg (80.0-100.0)
[2020-10-04 05:43] LABS: Basophils % 0.4 %; Eosinophils % 0.3 %; Hemoglobin 9.8 g/dL (11.7-16.6); Lymphocytes # 0.5 10^3/uL (0.8-4.8); Lymphocytes % 4.5 %; Mean Corpuscular HGB Conc 30.6 g/dL (30.0-36.0); Mean Corpuscular Hemoglobin 28.7 pg (28.0-34.0); Mean Corpuscular Volume 93.8 fL (80-94); Mean Platelet Volume 11.7 fL (7.4-10.4); Monocytes # 0.4 10^3/uL (0.2-0.9); Monocytes % 3.5 %; Neutrophils # 8.98 10^3/uL (1.8-7.7); Neutrophils % 90.5 %; Nucleated Red Blood Cells % 0 %; Platelet Count 278 10^3/cmm (130-400); Red Blood Count 3.41 10^6/uL (4.1-5.3); Red Cell Distribution Width 14.7 % (12.1-15.1); White Blood Count 9.9 10^3/uL (4.0-10.0)
[2020-10-04] MEDS: sodium chloride 0.45% 1,000 ML 100 ML IV ×2 (06:15→17:36)
[2020-10-04 06:27] LABS: Procalcitonin 4.69 ng/mL (0-0.5)
[2020-10-04 06:44] LABS: C Reactive Protein 354.6 mg/L (0.0-4.9)
[2020-10-04 06:50] LABS: Alanine Aminotransferase 38 U/L (0-41); Albumin Level 2.2 g/dL (3.5-5.2); Alkaline Phosphatase 69 IU/L (40-130); Anion Gap 20.1 (5-19); Aspartate Amino Transferase 67 U/L (0-40); Blood Urea Nitrogen 64 mg/dL (8-23); Calcium 7.8 mg/dL (8.5-10.5); Carbon Dioxide 17 mmol/L (22-29); Chloride 116 mmol/L (98-107); Globulin 3.5 g/dL (1.3-4.6); Glomerular Filtration Rate 35.9 mL/min (90-130); Glucose 260 mg/dL (65-115); Lactate Dehydrogenase 468 U/L (135-225); Magnesium 2.9 mg/dL (1.7-2.3); Osmolality Calculated 333 mOsm/kg (285-295); Phosphorus 5.2 mg/dL (2.5-4.5); Potassium 5.1 mmol/L (3.5-5.1); Sodium 148 mmol/L (136-145); Total Bilirubin 1.2 mg/dL (0.15-1.2); Total Protein 5.7 g/dL (6.6-8.7)
--- NOTE | 2020-10-04 07:00 | XR_ITS ---
WS: [id number] Exam: XR chest 1V portable [id number] Date/Time of Exam: 10/04/2020 6:01 AM Reason For Exam: respiratory failure Comparison 10/02/2020. Bilateral pulmonary infiltrates demonstrate minimal improvement since previous study. The lungs are f ully expanded. Normal cardiomediastinal structures and bony elements. ET tube is in place remaining i n good position about 4 cm above the tiburcio. Right-sided IJ catheter appears to end in the lower one third of the SVC. An enteric tube enters the stomach but the tip is out of the [id number]. XR/XR chest 1V portable [id number] IMPRESSION: 1. Bilateral pulmonary infiltrates demonstrating minimal improvement. No other change since previous exam.
[2020-10-04 07:07] LABS: Creatinine Clr Calc Pharmacy 46.6104; Ferritin 1840 ng/mL (30-400)
[2020-10-04 07:12] LABS: Glucose Point of Care 239 mg/dL (70-110)
--- NOTE | 2020-10-04 07:35 | PM.PN ---
Subjective Subjective: Interval history: sedated, intubated Medications: Reviewed: Yes Medication Review Details: Current Medications Acetaminophen (Acetaminophen 325 Mg Tablet) 650 mg PO Q6H PRN PRN Reason: MILD PAIN Last Admin: 10/01/20 10:12 Dose: 650 mg Documented by: Albuterol/Ipratropium (Ipratropium-Albuterol 3 Ml Neb) 3 ml INHALATION Q4H.RESPIRATORY JAYSON Last Admin: 10/04/20 03:03 Dose: 3 ml Documented by: Artificial Tears (Artificial Tears Op Soln 15 Ml Btl) 1 drop EYE-BOTH Q4H [facility] Last Admin: 10/04/20 03:15 Dose: 1 drop Documented by: Dexamethasone (Dexamethasone 4 Mg/Ml Inj) 6 mg IVP Q24H [facility] Stop: 10/07/20 16:29 Last Admin: 10/03/20 15:48 Dose: 6 mg Documented by: Dextrose (Dextrose 50% Syringe 50 Ml) 25 ml IVP ONCE PRN; Protocol PRN Reason: hypoglycemia protocol Dextrose (Dextrose 50% Syringe 50 Ml) 50 ml IVP PRN PRN; Protocol PRN Reason: hypoglycemia protocol Enoxaparin Sodium (Enoxaparin 40 Mg/0.4 Ml Syringe) 40 mg SUBCUT Q24H [facility] Last Admin: 10/03/20 20:17 Dose: 40 mg Documented by: Famotidine (Famotidine 20 Mg/2 Ml Inj) 20 mg IVP Q12H [facility] Last Admin: 10/04/20 01:00 Dose: 20 mg Documented by: Glucagon (Glucagon 1 Mg/Ml Inj 1 Ml) 1 mg IM ONCE PRN; Protocol PRN Reason: Adult Acute Hypoglycemia Prot. Dextrose (D5w) 500 mls @ 100 mls/hr IV ONCE PRN; Protocol PRN Reason: Adult Acute Hypoglycemia Prot Propofol (Diprivan) 1,000 mg in 100 mls @ 0 mls/hr IV .Q0M JAYSON; Protocol Last Admin: 10/04/20 07:35 Dose: 40 mcg/kg/min, 23.2 mls/hr Documented by: Norepinephrine Bitartrate 4 mg (/ Dextrose) 254 mls @ 0 mls/hr IV .Q0M JAYSON; Protocol Last Admin: 10/03/20 17:21 Dose: 4 mcg/min, 15.2 mls/hr Documented by: Sodium Chloride (Sodium Chloride 0.9%) 1,000 mls @ 0 mls/hr XX .Q0M JAYSON Last Infusion: 10/02/20 19:33 Dose: Infused Documented by: Dexmedetomidine HCl 400 mcg/ (Sodium Chloride) 104 mls @ 0 mls/hr IV .Q0M JAYSON; Protocol Last Titration: 10/03/20 23:45 Dose: 0.4 mcg/kg/hr, 10.1 mls/hr Documented by: Fentanyl 1,000 mcg/ Sodium (Chloride) 100 mls @ 0 mls/hr IV .Q0M JAYSON; Protocol Last Admin: 10/04/20 04:28 Dose: 100 mcg/hr, 10 mls/hr Documented by: Sodium Chloride (Sodium Chloride 0.45%) 1,000 mls @ 100 mls/hr IV .Q10H [facility] Last Admin: 10/04/20 06:15 Dose: 100 mls/hr Documented by: Vancomycin/PEG/NADA/Lysine/Water (Vancocin) 1,500 mg in 300 mls @ 200 mls/hr IV Q24H [facility] Last Infusion: 10/03/20 10:50 Dose: Infused Documented by: Imipenem/Cilastatin Sodium 500 (mg/ Sodium Chloride) 100 mls @ 200 mls/hr IV Q8H [facility]; Protocol Last Infusion: 10/04/20 01:30 Dose: Infused Documented by: Insulin Aspart (Insulin Aspart 100 Unit/1 Ml) 0 unit SUBCUT Q4H [facility]; Protocol Last Admin: 10/04/20 07:24 Dose: 5 unit Documented by: Insulin Glargine (Insulin Glargine 100 Units/1 Ml) 10 unit SUBCUT BEDTIME [facility] Last Admin: 10/03/20 21:21 Dose: 10 unit Documented by: Insulin Glargine (Insulin Glargine 100 Units/1 Ml) 10 unit SUBCUT BID [facility] Midazolam HCl (Midazolam 1 Mg/Ml Inj 2 Ml) 2 mg IVP Q2H PRN PRN Reason: SEDATION Last Admin: 10/03/20 15:48 Dose: 2 mg Documented by: Zinc Gluconate (Zinc Gluconate 50 Mg Tablet) 50 mg PO DAILY [facility] Last Admin: 10/03/20 08:22 Dose: 50 mg Documented by: Vitals/I&O/Wt Last Vital Signs Temp 100.3 F H 12/30/20 00:00 Pulse 68 10/04/20 07:00 Resp 21 H 10/04/20 05:32 BP 124/73 10/04/20 07:00 Pulse Ox 90 10/04/20 07:00 10/03/20 10/04/20 10/04/20 22:59 06:59 14:59 Intake Total 1550.05 / 2378.00 2334.808 / 4712.808 100 / 100 Output Total 3700 / 3700 1800 / 5500 Balance -2149.95 / -1322.00 534.808 / -787.192 100 / 100 Weight last 48 hrs Weight 96.797 kg Weight 96.797 kg Physical Exam Narrative: EXAM NARRATIVE: intubated, sedated. low grade temps levo@ 4, precedex, fentanyl, glucose elevated vent Pc/AC fio2 55%, PEEP 12, RR 18 heent- nc/at neck supple lungs b/l crackles heart reg, no m/r/g appreciated abd soft +BS ext + b/l leg edema neuro- sedated Urinary Catheter Management^: Noel: Cath Placed During This Visit: yes Reason for Continuing Indwelling Catheter: Accurate Measurement of Urinary Output in Critically Ill Patients Urinary Catheter Date of Insertion: 09/27/20 Urinary Catheter Time of Insertion: 20:00 Data : 10/04/20 03:20 10/04/20 03:20 Micro: Microbiology 10/02/20 15:20 Blood Culture - Preliminary Blood 10/02/20 15:45 Blood Culture - Preliminary Blood 10/02/20 11:20 Gram Stain - Final Sputum - Endotracheal Tube Aspirate Sputum Culture - Preliminary Staphylococcus aureus 10/03/20 07:55 Blood Culture - Preliminary Blood SPECIMEN COLLECTED 10/03/20 07:50 Blood Culture - Preliminary Blood SPECIMEN COLLECTED A&P Additional A&P Information Impression: 1. Acute nonoliguric kidney injury, urine chemistry consistent with prerenal azotemia vs ATN- renal fxn improving w/ ivf -rhabdomyolyisis- ck improving - -cr sandra to 1.9- Q recurrent NADIYA from ATN vs covid-19 -low ur na noted - renal us - rt 12.4 cm, left 14 cm- no hydronephrosis 2. hypernatremia- d/c ivf. on tube feeds and free water- inc free wtaer to q 6 hr 3. hyperkalemia- improving 3. VDRF, pnuemonia, COVID - xray worsening- not sure if COVID-19 or CHF -hypercapneic resp acidosis -improved w/ vent 4.DM control -glucose elevated- ON STEROIDS 5. echo okay 6. metabolic acidosis 7.anemia meds reviewed -check vanco troughs-KEEP UNDER 19 -poor MS discussed w/ RN Will follow with you. Attestations Medical Necessity Statement*: covid-19, pna, nadiya Time Spent in Patient Care: 16 - 35 minutes Coding Level of Care Code Acute Utility Accounts Director for [employer] Mildred
--- NOTE | 2020-10-04 08:52 | PC.NUTR ---
NUTR TF RECOMMENDATIONS: Glucerna with goal rate of 55 ml/hr providing 1584 kcal (64%), 79 g PRO (101%), and 1063 ml fluid (43%)(%NEEDS). Suggest starting TF at 25 ml/hr and increase by 10 ml Q6H as tolerated till goal rate is met. Suggest H2O flushes of 210 ml Q4H to approach fluid needs or per physician. Additional kcal from diprivan total 2196 kcal (89%).
[2020-10-04 08:58] LABS: Creatine Phosphokinase 2342 U/L (39-308)
[2020-10-04] MEDS: zinc gluconate 50 mg Tablet PO (09:04)
[2020-10-04] MEDS: insulin glargine 100 units/1 mL 10 UNIT SUBCUT ×2 (09:07→17:38)
[2020-10-04] MEDS: vancomycin 1,500 MG/300 ML PIGGYBACK 200 MG IV (10:31)
[2020-10-04] MEDS: midazolam 1 mg/mL INJ 2 mL 2 MG IVP (10:53)
[2020-10-04] MEDS: dexmedetomidine 400 MCG in sodium chloride 0.9% (100 ml) 100 ML 10.1 MCG IV (12:13)
--- NOTE | 2020-10-04 12:17 | PM.PN ---
Subjective Subjective: Interval history: Hospital Course 65-year-old male with a past medical history significant for hypertension, dyslipidemia and diabetes mellitus who was recently diagnosed with COVID-19 infection requiring admission to [facility] on 09/26 for hypoxic respiratory failure. patient was reported to have oxygen saturation in low 70s for which he was placed on 4 L however in the next 24 hours he progressively worsened. Noted to have increased work of breathing and high-flow O2 requirements. He was initiated on remdesivir of which she had received a loading dose on 09/26 and 2nd day dose n 09/27 per tranfering physician. Bravo was also empirically started on azithromycin and cefdinir. Chest x-ray had showed findings consistent with COVID-19 pneumonia. And laboratory workup in review appeared to be stable except D-dimer which was above 7. He was empirically started on Eliquis 5 mg oral twice daily. Due to progressive decline patient was transferred to [facility] ICU. Upon arrival patient was found to be hypoxic ( sats in 70s) and in respiratory distress. He was immediately placed on BiPAP with Fio2 of 100% after which he gradually improved. arterial blood gases were obtained which showed a pH of 7.42, pCO2 of 31.9, PO2 of 51.8 and bicarb 20.5. Laboratory workup on arrival was repeated which showed a WBC of 7.0, hemoglobin 12.8, hematocrit 38.9 and a platelet count of 151. sodium 130, potassium 4.0, chloride 95, bicarb 20, BUN 13 and creatinine is 0.7. Lactic acid of 1.7. LFTs were within normal limits. Procalcitonin was 0.55. Shortly after arrival patient was noted to have respiratory failure with BiPAP requiring 100% FiO2. Due to this patient was intubated and placed on mechanical ventilation. Pulmonary medicine was consulted. Patient was noted to have severe adult respiratory distress syndrome likely from COVID-19 pneumonia. He was initiated on deep sedation protocol and subsequently started on NBM, initially with nimbex however to do low supply this was changed to rocoronium. Due to high dose requirement of sedatives to maintain deep sedation ( RASS -4) while on NMB he was note to have hypotensive episodes. Central line was placed and he was started on levophed. Fio2 was weaned to 50% on 09/30. NMB was held. Unfortunately his hospitalization was complicated with hyperglycemia likely due to decadron. In order to achieve blood glucose goal of less than 180 he was placed on insulin ggt per protocol. Also found to have worsening acute renal failure with creatinine increasing from 0.7 to 3.2 Ua NA was noted to be less than 20. Intravascular volume depletion and thus was initiated on NS at 75cc/hr. Nephrology was consulted. Subjective 09/28 Patient was intubated on placed on vent. Started on sedation in addition to nimbex. Was proned. Pulmonary consulted. 09/29 Overnight patient was changed from prone to supine. Remains stable. FiO2 was weaned to 90%. Continued on sedatives and paralytics. Did not have any fever episodes. 09/30 Patients Fio2 was weaned to 50%, Pao2/fio2 ratio was 138. His rocoronium was stopped. Noted to have stable urinary output however creatinine had worsened. Low grade fevers. 10/01 Overnight patient was noted have increased FiO2 requirements from 50 to 70. patient was breathing above the vent at a rate of 22. he was resumed on NMB ggt and plan to be place in prone position. Transitioned off insulin gtt to SQ insulin. 10/02 Patient was noted to have Tmax of 102. Fever noted yesterday am. Was placed again in prone position last evening. Remained on sedation. urine output increasing. 10/03 Overnight patient remained stable However did have an episode of fever this morning. T-max of 102?. Also noted to be hyperglycemic. Given Lasix last night. noted > 3l u/o . 10/04 Fever curve improving Medications: Reviewed: Yes Medication Review Details: Current Medications Acetaminophen (Acetaminophen 325 Mg Tablet) 650 mg PO Q6H PRN PRN Reason: MILD PAIN Albuterol/Ipratropium (Ipratropium-Albuterol 3 Ml Neb) 3 ml INHALATION Q4H.RESPIRATORY JAYSON Last Admin: 10/01/20 08:27 Dose: 3 ml Documented by: Apixaban (Apixaban 5 Mg Tablet) 5 mg PO BID JAYSON Last Admin: 09/30/20 17:27 Dose: 5 mg Documented by: Dexamethasone (Dexamethasone 4 Mg/Ml Inj) 6 mg IVP Q24H JAYSON Stop: 10/07/20 16:29 Last Admin: 09/30/20 15:33 Dose: 6 mg Documented by: Dextrose (Dextrose 50% Syringe 50 Ml) 25 ml IVP ONCE PRN; Protocol PRN Reason: hypoglycemia protocol Dextrose (Dextrose 50% Syringe 50 Ml) 50 ml IVP PRN PRN; Protocol PRN Reason: hypoglycemia protocol Famotidine (Famotidine 20 Mg/2 Ml Inj) 20 mg IVP Q12H [facility] Last Admin: 10/01/20 01:50 Dose: 20 mg Documented by: Glucagon (Glucagon 1 Mg/Ml Inj 1 Ml) 1 mg IM ONCE PRN; Protocol PRN Reason: Adult Acute Hypoglycemia Prot. Dextrose (D5w) 500 mls @ 100 mls/hr IV ONCE PRN; Protocol PRN Reason: Adult Acute Hypoglycemia Prot Propofol (Diprivan) 1,000 mg in 100 mls @ 0 mls/hr IV .Q0M JAYSON; Protocol Last Admin: 10/01/20 07:45 Dose: 50 mcg/kg/min, 29 mls/hr Documented by: Fentanyl 1,000 mcg/ Sodium (Chloride) 100 mls @ 0 mls/hr IV .Q0M JAYSON; Protocol Last Titration: 10/01/20 05:00 Dose: 125 mcg/hr, 12.5 mls/hr Documented by: Midazolam HCl 100 mg/ Sodium (Chloride) 100 mls @ 0 mls/hr IV .Q0M JAYSON; Protocol Last Admin: 10/01/20 07:23 Dose: 5 mg/hr, 5 mls/hr Documented by: Norepinephrine Bitartrate 4 mg (/ Dextrose) 254 mls @ 0 mls/hr IV .Q0M JAYSON; Protocol Last Titration: 09/29/20 11:54 Dose: 0 mcg/min, 0 mls/hr Documented by: Sodium Chloride (Sodium Chloride 0.9%) 1,000 mls @ 0 mls/hr XX .Q0M JAYSON Insulin Human Regular 250 unit (/ Sodium Chloride) 252.5 mls @ 0 mls/hr IV .Q0M JAYSON; Protocol Last Titration: 10/01/20 05:45 Dose: 0.8 unit/hr, 0.8 mls/hr Documented by: Sodium Chloride (Sodium Chloride 0.9%) 1,000 mls @ 75 mls/hr IV .[id number] JAYSON Last Admin: 09/30/20 23:43 Dose: 75 mls/hr Documented by: Zinc Gluconate (Zinc Gluconate 50 Mg Tablet) 50 mg PO DAILY [facility] Last Admin: 09/30/20 08:38 Dose: 50 mg Documented by: Vitals/I&O/Wt Last Vital Signs Temp 99.2 F 10/04/20 19:47 Pulse 76 10/04/20 20:03 Resp 171 H 10/04/20 21:07 BP 121/60 10/04/20 19:47 Pulse Ox 89 L 10/04/20 20:03 10/04/20 10/04/20 10/04/20 06:59 14:59 22:59 Intake Total 2374.000 / 4752.000 713.933 / 844.521 4160.466 / 3031.399 Output Total 1800 / 5500 1525 / 1525 Balance 574.000 / -748.000 713.933 / 713.933 792.466 / 1506.399 Weight last 48 hrs Weight 96.797 kg Weight 96.797 kg Physical Exam Narrative: EXAM NARRATIVE: General - Intubated on MV HEENT- ET tube Chest - vented CVS- sinus tachycardia Abdomen- appeared non-distended Extremities- no edema Urinary Catheter Management^: Noel: Cath Placed During This Visit: yes Reason for Continuing Indwelling Catheter: Accurate Measurement of Urinary Output in Critically Ill Patients Urinary Catheter Date of Insertion: 09/27/20 Urinary Catheter Time of Insertion: 20:00 Data : 10/04/20 03:20 10/04/20 03:20 Micro: Microbiology 10/03/20 07:55 Blood Culture - Preliminary Blood 10/03/20 07:50 Blood Culture - Preliminary Blood 10/02/20 11:20 Gram Stain - Final Sputum - Endotracheal Tube Aspirate Sputum Culture - Final Staphylococcus aureus 10/02/20 15:45 Blood Culture - Preliminary Blood 10/02/20 15:20 Blood Culture - Preliminary Blood 10/02/20 15:25 Urine Culture - Preliminary Urine,Clean Catch A&P Assessment and plan (1) Acute respiratory failure with hypoxia: Status: Acute (2) Pneumonia due to COVID-19 virus: Status: Acute (3) Dyslipidemia: Status: Acute (4) Diabetes mellitus: Status: Acute Qualifiers: Diabetes mellitus type: type 2 Diabetes mellitus intermediate manager insulin use: unspecified intermediate manager insulin use status Diabetes mellitus complication status: with other specified complication Qualified Code(s): E11.69 - Type 2 diabetes mellitus with other specified complication (5) Hypertension: Status: Acute Qualifiers: Hypertension type: unspecified Qualified Code(s): I10 - Essential (primary) hypertension Acute respiratory distress syndrome on Mechanical Ventilation ( 09/27 ) - Due to COVID 19 pneumonia - Non-cardiogenic Pulmonary edema Labs - 09/27 -ABG - PH 7.21, pCO2 60.2, PO2 of 54.2 and bicarb 24.4 - 09/28 -ABG - pH 7.21, pCO2 60.3, PO2 120, bicarb 24.2 - 09/29 -ABG - pH 7.33, pCO2 of 43.2, PO2 of 67, bicarb 22.6 on PC, Rate 22 PEEP of 14, Fio2 90%, - 09/30 - ABG 7.40, pCO2 of 31, Po2 of 63, Hco3 of 19.1 on pressure control / Fio2 of 50.0%, PEEP of 14, - 10/01 - ABG - 7.43, 31.8, Po2 57.3, HOC3 21 - Pro- BNP of 616 - Pro-calcitonin 0.55 Imaging : - 09/27 - Chest x-ray -. bilateral pulmonary consolidation L>R, ET tube 2 cm above tiburcio - 09/28 - Multi-lobar pneumonia slightly improved in left lung. - ECHO - LV function WNL - significantly elevated RA pressures. RV not well seen. Sedation/Paralytic - Propofol per protocol - Fentanyl - Versed - Rocoronium per protocol Meds: - Duo-neb q4-6hr scheduled - Decadron 6 mg IV daily - Eliquis 5 mg OG BID ( D-dimer > 7 prior to arrival ) Plan: - Completed 3 days of proning - Continue precedex and fentanyl for sedation - Versed added - Titrate off levophed if possible - Continue to wean FiO2 as tolerated - Continue pressure control ventilation - Continue current settings - Repeat ABG in PM - Repeat abg in am / Repeat chest x-ray in am - D/w Pulmonary medicine COVID-19 Pneumonia with recurrent fever - Low suspicion of underlying bacterial pneumonia Labs - Dx of COVID on 09/26 - Ferritin 1975 -> 3574 - 1256 - CRP 188.8 - LDH - 439 - D-dimer 13.04 - Procal 0.55 Plan: - Completed Remdesivir x 5 days - Continue Decadron 6 mg IV daily - Q2-day Pro-calcitonin, Ferritin, CRP, LDH in am - T-max 102 this AM - Blood culture x 2, tracheal aspirate culture, urine culture - pending - NGTD - Started empirically on vancomycin pharmacy to dose - Change zosyn to Primixin 500mg IV q6hr - Continue to trend pro-hernandez Acute renal failure / Rhabdomyolysis / Hyperkalemia - Due to Hypotensive episodes, COVID-19 , rhabdo Labs : - Creatinine 0.7 - 1.2 - 2.2 - 3.2 - > 2.7 - 1.8 - CK 2666 - > Improving Plan: - Continue IVF as per nephro - currently on 100 cc/hr - s/p Lasix 40 mg IV x 1 on 10/02 - Replace K as needed - Noel in place - Na increased today to 150 - started on free h20 flush per OG - Repeat labs in am Uncontrolled Diabetes Mellitus with hyperglycemia - Complicated with decadron - Blood sugar goal < 180 - Hypoglycemia protocol - Lantus 10 Units BID - Blood sugar check q4hr - Sliding scale insulin - High dose - Will change to high dose sliding scale - May consider increasing lantus dose Hx of Hypertenison - Currently hypotensive likely due to sedatives - On Levophed to maintain MAP > 65 - D/C all anti-hypertensives. Lines : - Central / Arterial ( 09/27) Tubes: - ET tube - OG - Noel FEN : - Initiate tube feedings now - COnsult with air and hydronic balancing technician - 150ml q6hr Free h20 flush GI ppx - Pepcid 20 mg IV BID DVT ppx - Eliquis 5 mg OG BID - STOPED - Changed to lovenox 40 mg SQ daily Attestations Medical Necessity Statement*: Continue hospital stay for vent management Time Spent in Patient Care: Greater than 35 minutes (>than 50% of time spent in counselling and/or direct pt care on unit). Coding Level of Care Code Acute [employer] for Meeta Levy Diagnoses Acute respiratory failure with hypoxia J96.01 Pneumonia due to COVID-19 virus U07.1; J12.89 Dyslipidemia E78.5 Diabetes mellitus E11.69 Diabetes mellitus type: type 2 Diabetes mellitus intermediate manager insulin use: unspecified intermediate manager insulin use status Diabetes mellitus complication status: with other specified complication Hypertension I10 Hypertension type: unspecified
[2020-10-04 12:46] LABS: Glucose Point of Care 218 mg/dL (70-110)
[2020-10-04] MEDS: dexamethasone 4 mg/mL INJ 6 MG IVP (16:42)
[2020-10-04 17:25] LABS: ABG PCO2 44.5 mmHg (35-45); ABG PH Result 7.28 (7.35-7.45); Alveolar-Arterial Oxygen Gradi 58.1 mmHg (5-10); Arterial Blood Gas Hematocrit 31.8 % (42-52); Blood Gas Allen Test Pos; Blood Gas Operator Identificat CAK; Blood Gas Sample Site Radial, left; Blood Gas Sample Type Arterial; HCO3 ABG 20.7 mmol/L (22-26); HGB O2 Sat 88.1 % (95-100); Ionized Calcium Level - ABG 1.1 mmol/L (1.1-1.4); Oxygen Device VENT; Oxygen Saturation ABG 89.9; Potassium Level - ABG 5.3 mmol/L (3.5-5.0); Total Hemoglobin 10.4 g/dL (14-18)
--- NOTE | 2020-10-04 17:54 | PC.SOCIAL ---
IMM Not Given Page 2 of IMM not given as patient is not expected to d/c in the next 48 hours.
[2020-10-04 18:27] LABS: Glucose Point of Care 159 mg/dL (70-110)
[2020-10-04 18:27] LABS: Glucose Point of Care 137 mg/dL (70-110)
[2020-10-04] MEDS: dexmedetomidine 400 MCG in sodium chloride 0.9% (100 ml) 100 ML 25.2 MCG IV (18:35)
--- NOTE | 2020-10-04 19:54 | PM.PN ---
Subjective Subjective: Interval history: Acute hypoxic respiratory failure likely secondary to disease due to acquired ARDS due to COVID-19 pneumonia, gradually recovering, but course complicated with septic shock due to staph aureus pneumonia. Needs close monitoring for renal functions and response to antibiotics for staph pneumonia Clinically unchanged Still overbreathing the vent-adjusted the sedation Medications: Reviewed: Yes Medication Review Details: Current Medications Acetaminophen (Acetaminophen 325 Mg Tablet) 650 mg PO Q6H PRN PRN Reason: MILD PAIN Last Admin: 10/01/20 10:12 Dose: 650 mg Documented by: Albuterol/Ipratropium (Ipratropium-Albuterol 3 Ml Neb) 3 ml INHALATION Q4H.RESPIRATORY [facility] Last Admin: 10/04/20 03:03 Dose: 3 ml Documented by: Artificial Tears (Artificial Tears Op Soln 15 Ml Btl) 1 drop EYE-BOTH Q4H [facility] Last Admin: 10/04/20 03:15 Dose: 1 drop Documented by: Dexamethasone (Dexamethasone 4 Mg/Ml Inj) 6 mg IVP Q24H [facility] Stop: 10/07/20 16:29 Last Admin: 10/03/20 15:48 Dose: 6 mg Documented by: Dextrose (Dextrose 50% Syringe 50 Ml) 25 ml IVP ONCE PRN; Protocol PRN Reason: hypoglycemia protocol Dextrose (Dextrose 50% Syringe 50 Ml) 50 ml IVP PRN PRN; Protocol PRN Reason: hypoglycemia protocol Enoxaparin Sodium (Enoxaparin 40 Mg/0.4 Ml Syringe) 40 mg SUBCUT Q24H [facility] Last Admin: 10/03/20 20:17 Dose: 40 mg Documented by: Famotidine (Famotidine 20 Mg/2 Ml Inj) 20 mg IVP Q12H [facility] Last Admin: 10/04/20 01:00 Dose: 20 mg Documented by: Glucagon (Glucagon 1 Mg/Ml Inj 1 Ml) 1 mg IM ONCE PRN; Protocol PRN Reason: Adult Acute Hypoglycemia Prot. Dextrose (D5w) 500 mls @ 100 mls/hr IV ONCE PRN; Protocol PRN Reason: Adult Acute Hypoglycemia Prot Propofol (Diprivan) 1,000 mg in 100 mls @ 0 mls/hr IV .Q0M [facility]; Protocol Last Admin: 10/04/20 07:35 Dose: 40 mcg/kg/min, 23.2 mls/hr Documented by: Norepinephrine Bitartrate 4 mg (/ Dextrose) 254 mls @ 0 mls/hr IV .Q0M [facility]; Protocol Last Admin: 10/03/20 17:21 Dose: 4 mcg/min, 15.2 mls/hr Documented by: Sodium Chloride (Sodium Chloride 0.9%) 1,000 mls @ 0 mls/hr XX .Q0M [facility] Last Infusion: 10/02/20 19:33 Dose: Infused Documented by: Dexmedetomidine HCl 400 mcg/ (Sodium Chloride) 104 mls @ 0 mls/hr IV .Q0M [facility]; Protocol Last Titration: 10/03/20 23:45 Dose: 0.4 mcg/kg/hr, 10.1 mls/hr Documented by: Fentanyl 1,000 mcg/ Sodium (Chloride) 100 mls @ 0 mls/hr IV .Q0M [facility]; Protocol Last Admin: 10/04/20 04:28 Dose: 100 mcg/hr, 10 mls/hr Documented by: Sodium Chloride (Sodium Chloride 0.45%) 1,000 mls @ 100 mls/hr IV .Q10H [facility] Last Admin: 10/04/20 06:15 Dose: 100 mls/hr Documented by: Vancomycin/PEG/NADA/Lysine/Water (Vancocin) 1,500 mg in 300 mls @ 200 mls/hr IV Q24H [facility] Last Infusion: 10/03/20 10:50 Dose: Infused Documented by: Imipenem/Cilastatin Sodium 500 (mg/ Sodium Chloride) 100 mls @ 200 mls/hr IV Q8H [facility]; Protocol Last Infusion: 10/04/20 01:30 Dose: Infused Documented by: Insulin Aspart (Insulin Aspart 100 Unit/1 Ml) 0 unit SUBCUT Q4H [facility]; Protocol Last Admin: 10/04/20 07:24 Dose: 5 unit Documented by: Insulin Glargine (Insulin Glargine 100 Units/1 Ml) 10 unit SUBCUT BEDTIME [facility] Last Admin: 10/03/20 21:21 Dose: 10 unit Documented by: Insulin Glargine (Insulin Glargine 100 Units/1 Ml) 10 unit SUBCUT BID [facility] Midazolam HCl (Midazolam 1 Mg/Ml Inj 2 Ml) 2 mg IVP Q2H PRN PRN Reason: SEDATION Last Admin: 10/03/20 15:48 Dose: 2 mg Documented by: Zinc Gluconate (Zinc Gluconate 50 Mg Tablet) 50 mg PO DAILY [facility] Last Admin: 10/03/20 08:22 Dose: 50 mg Documented by: Vitals/I&O/Wt Last Vital Signs Temp 99.2 F 10/04/20 19:47 Pulse 73 10/04/20 19:47 Resp 18 10/04/20 19:47 BP 121/60 10/04/20 19:47 Pulse Ox 89 L 10/04/20 19:44 10/04/20 10/04/20 10/04/20 06:59 14:59 22:59 Intake Total 2374.000 / 4752.000 713.933 / 539.740 4008.466 / 3031.399 Output Total 1800 / 5500 1525 / 1525 Balance 574.000 / -748.000 713.933 / 713.933 792.466 / 1506.399 Weight last 48 hrs Weight 213 lb 6.4 oz Weight 213 lb 6.4 oz Physical Exam Narrative: EXAM NARRATIVE: PHYSICAL EXAM: General: lying in bed, sedated and intubated. HEENT:NCAT, PERRLA, EOMI Neck: Supple Lungs: Bilateral diffuse crackles, Heart: s1/s2, RRR Abd: soft, NT, ND, BS + Normoactive Extremities: No edema STEAM TENDER: sedated and limited STEAM TENDER exam possible. SKIN: no rash LDA: # CVC: Right IJ 09/27/2020 # Turner: 09/26/2020 # A line: Right radial art line 09/27/2020 Urinary Catheter Management^: Turner: Cath Placed During This Visit: yes Reason for Continuing Indwelling Catheter: Accurate Measurement of Urinary Output in Critically Ill Patients Urinary Catheter Date of Insertion: 09/27/20 Urinary Catheter Time of Insertion: 20:00 Data : 10/04/20 03:20 10/04/20 03:20 Micro: Microbiology 10/03/20 07:55 Blood Culture - Preliminary Blood 10/03/20 07:50 Blood Culture - Preliminary Blood 10/02/20 11:20 Gram Stain - Final Sputum - Endotracheal Tube Aspirate Sputum Culture - Final Staphylococcus aureus 10/02/20 15:45 Blood Culture - Preliminary Blood 10/02/20 15:20 Blood Culture - Preliminary Blood 10/02/20 15:25 Urine Culture - Preliminary Urine,Clean Catch A&P Assessment and plan (1) Pneumonia due to COVID-19 virus: Status: Acute (2) Acute respiratory failure with hypoxia: Status: Acute (3) Acute respiratory distress syndrome (ARDS) due to 2019 novel coronavirus: Status: Acute (4) Diabetes mellitus: Status: Acute Qualifiers: Diabetes mellitus type: type 2 Diabetes mellitus alf insulin use: unspecified alf insulin use status Diabetes mellitus complication status: with other specified complication Qualified Code(s): E11.69 - Type 2 diabetes mellitus with other specified complication (5) Hypertension: Status: Acute Qualifiers: Hypertension type: unspecified Qualified Code(s): I10 - Essential (primary) hypertension (6) Difficult ventilator weaning: Status: Acute 65 year old male past medical history of hypertension, dyslipidemia, diabetes mellitus recently diagnosed with COVID-19 infection admitted to viral ICU for management of acute hypoxemic respiratory failure secondary to acute respiratory distress syndrome due to COVID-19 pneumonia requiring intubation and mechanical ventilation. NEURO: -Off paralytic since 10/03/2020 -Sedated with fentanyl 100, Precedex 0.4 and propofol 50 -Continue awakening trial tomorrow and check for mentation PULM: #Acute hypoxic and hypercapneic respiratory failure secondary to ARDS due to COVID pna -Intubated on 09/27/2020 and currently on PC mode PIP 29, PEEP 12, FiO2 65%, with minute ventilation 13.6 -ABG today 18 PIP, PEEP 12, rate 14, and FiO2 80% - 7.28/44/70/20/89% -Had a 3 x 16-hour sessions of proning -CXR increasing consolidation in the central and lower lung bacon bilaterally -increased inflammatory markers ESR, LDH, CRP likely secondary to superimposed bacterial infection -Repeat all 4 every 2 days to trend markers of inflammation -Completed remdesivir and on dexamethasone daily -DuoNeb nebulization every 6 hours -Sputum cultures positive for staph aureus sensitive to Zosyn and vancomycin - Paitent is on vancomycin and imipenem CVS: -Shock secondary to sepsis - still on levophed 4 mg - tapering down -Monitor heart rate and blood pressure -BNP 616; echo grossly LV systolic function is borderline normal. Normal diastolic function. Valvular structures not very well visualized. Significantly elevated RAP 15 - hold all antihypertensives GI: -Pulmicort TF @ 10 mls/hr -Protonix 40 mg daily for GI prophylaxis - had small bm today - Bowel regimen: senna hs added RENAL: -Stable renal function -Sodium 148-monitor and DC NS -Normal lactic acid 10/02/20 -Worsening CK and today's ABG suggestive of metabolic acidosis pH 7.28, chloride 116, bicarb 17 and increased anion gap; send for repeat lactic acid -recommended to DC normal saline and instead give Ringer lactate and maintain MAP > 65 -I/O/N 4.7 L / 5.5 L/-700 cc -adequate urine output 0. 82 mL/kg/h over last 24 hours -Continue turner cath -Avoid nephrotoxins -Monitor I/O -Monitor BUN/creatinine and electrolytes and supplement accordingly to keep k>4, Mg >2 -Recommendations to discuss with nephrology about changing NS to Ringer lactate HEM: H&H stable Plts stable,will trend Coags stable ENDO: #Diabetes mellitus -Uncontrolled sugars especially after starting steroids -On scale coverage requiring 30 units in last 8 hours -10 mg Lantus twice daily with high-dose scale coverage and check sugars every 6 hours ID: #Septic shock secondary to staph pneumonia in patient with underlying COVID pna #Persistent temperature spikes -WBC 5.7K -->9k -Procalcitonin 4.69 -Sputum culture staph area sensitive to Zosyn and vancomycin -Currently covered with vancomycin and imipenem -Once blood cultures and urine cultures and temperature spike improve -change vancomycin to Zosyn and DC imipenem -Monitor temperatures and WBC count CODE STATUS: Full Prognosis: Critical Disposition: Remains in ICU Plan of care discussed and recommendations conveyed to Dr. Rodriguez (hospitalist covering the patient), RN and respiratory therapist. ICU CHECKLIST: Problem list updated Verbal orders reviewed and signed Analgesia: Fentanyl Glycemic Control: Insulin Nutrition: Pulmicort tube feeding Restraint Renewal (within 24 hrs): Yes Ulcer Prophylaxis: H2 sara Chemical Thromboprophylaxis: Prophylaxis: Eliquis Mechanical Thromboprophylaxis: Yes Need for Central line: Yes this patient was on several sedatives, paralytic and pressors Need for Turner catheter: Yes for close urine output monitoring Critical Care Time (No Overlap): 45 min This patient has a high probability of sudden, clinically significant deterioration, which requires the highest level of physician preparedness to intervene urgently. I managed/supervised life or organ supporting interventions that required frequent physician assessment. I devoted my full attention in the ICU to the direct care of this patient for the period of time indicated above. Time I spent with family or surrogate(s) is included only if the patient was incapable of providing necessary information or participating in decision making. Time devoted to teaching and to any procedures I billed separately is not included. Services Provided: Telemetry review Mechanical Ventilation Hemodynamic interpretation, assessment and management Review and interpretation of CXR Review and interpretation of lab values Review and interpretation of microbiologic data and culture results Review of medications and administration Review and interpretation of Nutrition requirements and management Discussion of management with other consultants and services Clinical update to family members Attestations Medical Necessity Statement*: Acute hypoxic respiratory failure likely secondary to disease due to acquired ARDS due to COVID-19 pneumonia, gradually recovering, but course complicated with septic shock due to staph aureus pneumonia. Needs close monitoring for renal functions and response to antibiotics for staph pneumonia Time Spent in Patient Care: Greater than 35 minutes (>than 50% of time spent in counselling and/or direct pt care on unit). Critical Care Time: Critical Care Time (min): 45 Coding Level of Care Code Established Pt Acute Drill Operator Pneumatic for Chg Fwd Patient Type Established History Comprehensive Exam Comprehensive Medical Decision Making High Complexity Diagnoses Pneumonia due to COVID-19 virus U07.1; J12.89 Acute respiratory failure with hypoxia J96.01 Acute respiratory distress syndrome (ARDS) due to 2019 novel coronavirus U07.1; J80 Diabetes mellitus E11.69 Diabetes mellitus type: type 2 Diabetes mellitus terminal make up operator insulin use: unspecified terminal make up operator insulin use status Diabetes mellitus complication status: with other specified complication Hypertension I10 Hypertension type: unspecified Difficult ventilator weaning Z99.11 Time Spent (min) 45
[2020-10-04 19:56] LABS: Glucose Point of Care 179 mg/dL (70-110)
[2020-10-04 21:03] LABS: Lactate (Lactic Acid level) 1.2 mmol/L (0.5-2.2)
[2020-10-04] MEDS: enoxaparin 40 mg/0.4 mL Syringe SUBCUT (21:14)
[2020-10-04 22:10] LABS: Glucose Point of Care 213 mg/dL (70-110)
[2020-10-04] MEDS: propofol 1,000 MG/100 ML INJ 29 MG IV (22:11)
[2020-10-05] VITALS (48 sets, daily range): BP systolic 80–125; BP diastolic 57–75; PULSE 71–111; RESP 14–25; TEMP 37.5–38.2; O2SAT 81–93; BMI 31.8
[2020-10-05] MEDS: ipratropium-albuterol 3 mL Neb INHALATION ×6 (00:36→20:29)
[2020-10-05] MEDS: dexmedetomidine 400 MCG in sodium chloride 0.9% (100 ml) 100 ML 25.2 MCG IV (00:37)
[2020-10-05] MEDS: propofol 1,000 MG/100 ML INJ 29 MG IV ×7 (01:51→21:17)
[2020-10-05] MEDS: artificial tears Op Soln 15 mL Btl 1 DROP EYE-BOTH ×7 (01:52→23:33)
[2020-10-05 02:11] LABS: Glucose Point of Care 193 mg/dL (70-110)
[2020-10-05] MEDS: famotidine 20 mg/2 mL INJ IVP ×2 (02:40→13:54)
[2020-10-05] MEDS: sodium chloride 0.45% 1,000 ML 100 ML IV ×2 (02:40→14:04)
[2020-10-05 04:59] LABS: Creatine Phosphokinase 708 U/L (39-308)
[2020-10-05] MEDS: acetaminophen 325 mg Tablet 650 MG PO (05:01)
[2020-10-05 05:25] LABS: Alanine Aminotransferase 45 U/L (0-41); Albumin Level 1.8 g/dL (3.5-5.2); Alkaline Phosphatase 178 IU/L (40-130); Anion Gap 13.7 (5-19); Aspartate Amino Transferase 46 U/L (0-40); Blood Urea Nitrogen 64 mg/dL (8-23); Calcium 7.9 mg/dL (8.5-10.5); Carbon Dioxide 20 mmol/L (22-29); Chloride 117 mmol/L (98-107); Globulin 3.5 g/dL (1.3-4.6); Glomerular Filtration Rate 43.7 mL/min (90-130); Glucose 186 mg/dL (65-115); Osmolality Calculated 321 mOsm/kg (285-295); Phosphorus 5.3 mg/dL (2.5-4.5); Sodium 144 mmol/L (136-145); Total Bilirubin 0.6 mg/dL (0.15-1.2); Total Protein 5.3 g/dL (6.6-8.7)
[2020-10-05 05:30] LABS: Potassium 6.7 mmol/L (3.5-5.1)
--- NOTE | 2020-10-05 06:07 | PM.PN ---
Subjective Subjective: Interval history: intubated, sedated. now off of pressers. Medications: Reviewed: Yes Medication Review Details: Current Medications Acetaminophen (Acetaminophen 325 Mg Tablet) 650 mg PO Q6H PRN PRN Reason: MILD PAIN Last Admin: 10/05/20 05:01 Dose: 650 mg Documented by: Albuterol/Ipratropium (Ipratropium-Albuterol 3 Ml Neb) 3 ml INHALATION Q4H.RESPIRATORY [facility] Last Admin: 10/05/20 04:20 Dose: 3 ml Documented by: Artificial Tears (Artificial Tears Op Soln 15 Ml Btl) 1 drop EYE-BOTH Q4H [facility] Last Admin: 10/05/20 02:51 Dose: 1 drop Documented by: Dexamethasone (Dexamethasone 4 Mg/Ml Inj) 6 mg IVP Q24H [facility] Stop: 10/07/20 16:29 Last Admin: 10/04/20 16:42 Dose: 6 mg Documented by: Dextrose (Dextrose 50% Syringe 50 Ml) 25 ml IVP ONCE PRN; Protocol PRN Reason: hypoglycemia protocol Dextrose (Dextrose 50% Syringe 50 Ml) 50 ml IVP PRN PRN; Protocol PRN Reason: hypoglycemia protocol Enoxaparin Sodium (Enoxaparin 40 Mg/0.4 Ml Syringe) 40 mg SUBCUT Q24H [facility] Last Admin: 10/04/20 21:14 Dose: 40 mg Documented by: Famotidine (Famotidine 20 Mg/2 Ml Inj) 20 mg IVP Q12H [facility] Last Admin: 10/05/20 02:40 Dose: 20 mg Documented by: Glucagon (Glucagon 1 Mg/Ml Inj 1 Ml) 1 mg IM ONCE PRN; Protocol PRN Reason: Adult Acute Hypoglycemia Prot. Dextrose (D5w) 500 mls @ 100 mls/hr IV ONCE PRN; Protocol PRN Reason: Adult Acute Hypoglycemia Prot Propofol (Diprivan) 1,000 mg in 100 mls @ 0 mls/hr IV .Q0M [facility]; Protocol Last Admin: 10/05/20 05:02 Dose: 50 mcg/kg/min, 29 mls/hr Documented by: Norepinephrine Bitartrate 4 mg (/ Dextrose) 254 mls @ 0 mls/hr IV .Q0M [facility]; Protocol Last Titration: 10/05/20 02:44 Dose: 0 mcg/min, 0 mls/hr Documented by: Sodium Chloride (Sodium Chloride 0.9%) 1,000 mls @ 0 mls/hr XX .Q0M [facility] Last Infusion: 10/02/20 19:33 Dose: Infused Documented by: Dexmedetomidine HCl 400 mcg/ (Sodium Chloride) 104 mls @ 0 mls/hr IV .Q0M [facility]; Protocol Last Titration: 10/05/20 02:44 Dose: 0.7 mcg/kg/hr, 17.6 mls/hr Documented by: Fentanyl 1,000 mcg/ Sodium (Chloride) 100 mls @ 0 mls/hr IV .Q0M [facility]; Protocol Last Admin: 10/04/20 23:30 Dose: 125 mcg/hr, 12.5 mls/hr Documented by: Vancomycin/PEG/NADA/Lysine/Water (Vancocin) 1,500 mg in 300 mls @ 200 mls/hr IV Q24H [facility] Last Infusion: 10/04/20 19:41 Dose: Infused Documented by: Imipenem/Cilastatin Sodium 500 (mg/ Sodium Chloride) 100 mls @ 200 mls/hr IV Q8H [facility]; Protocol Last Infusion: 10/05/20 02:43 Dose: 0 mls/hr Documented by: Sodium Chloride (Sodium Chloride 0.45%) 1,000 mls @ 100 mls/hr IV .Q10H [facility] Last Admin: 10/05/20 02:40 Dose: 100 mls/hr Documented by: Insulin Aspart (Insulin Aspart 100 Unit/1 Ml) 0 unit SUBCUT Q4H [facility]; Protocol Last Admin: 10/05/20 02:40 Dose: 4 unit Documented by: Insulin Glargine (Insulin Glargine 100 Units/1 Ml) 10 unit SUBCUT BID [facility] Last Admin: 10/04/20 17:38 Dose: 10 unit Documented by: Midazolam HCl (Midazolam 1 Mg/Ml Inj 2 Ml) 2 mg IVP Q2H PRN PRN Reason: SEDATION Last Admin: 10/04/20 10:53 Dose: 2 mg Documented by: Zinc Gluconate (Zinc Gluconate 50 Mg Tablet) 50 mg PO DAILY [facility] Last Admin: 10/04/20 09:04 Dose: 50 mg Documented by: Vitals/I&O/Wt Last Vital Signs Temp 99.5 F 10/05/20 04:00 Pulse 92 10/05/20 06:05 Resp 15 10/05/20 06:05 BP 104/61 10/05/20 04:00 Pulse Ox 93 10/05/20 06:05 10/04/20 10/04/20 10/05/20 14:59 22:59 06:59 Intake Total 713.933 / 530.784 8421.146 / 3233.079 1456.191 / 4689.270 Output Total 1525 / 1525 1300 / 2825 Balance 713.933 / 713.933 994.146 / 1708.079 156.191 / 1864.270 Weight last 48 hrs Weight 103.504 kg Weight 96.797 kg Physical Exam Narrative: EXAM NARRATIVE: intubated, sedated. still spiking temps levo off vent - fio2 80%, PEEP 10, TV 550 RR 18 heent- nc/at neck supple lungs b/l crackles heart reg, no m/r/g appreciated abd soft +BS ext + b/l minimal leg edema neuro- sedated Urinary Catheter Management^: Noel: Cath Placed During This Visit: yes Reason for Continuing Indwelling Catheter: Accurate Measurement of Urinary Output in Critically Ill Patients Urinary Catheter Date of Insertion: 09/27/20 Urinary Catheter Time of Insertion: 20:00 Data : 10/04/20 03:20 10/05/20 04:10 Micro: Microbiology 10/03/20 07:55 Blood Culture - Preliminary Blood 10/03/20 07:50 Blood Culture - Preliminary Blood 10/02/20 11:20 Gram Stain - Final Sputum - Endotracheal Tube Aspirate Sputum Culture - Final Staphylococcus aureus 10/02/20 15:45 Blood Culture - Preliminary Blood 10/02/20 15:20 Blood Culture - Preliminary Blood 10/02/20 15:25 Urine Culture - Preliminary Urine,Clean Catch A&P Additional A&P Information Impression: 1. Acute nonoliguric kidney injury, urine chemistry consistent with prerenal azotemia vs ATN- renal fxn improving w/ ivf -rhabdomyolyisis- ck improving - -low ur na noted - renal us - rt 12.4 cm, left 14 cm- no hydronephrosis 2. hypernatremia- on ivf and free water improving 3. hyperkalemia- odd as cr and ck improving. can be from steroids, lovenox, or acidosis- however, bicarb is improving -will rx medically- kayexalate, d50/ reg insulin, bicarb, albuterol, calcium 3. VDRF, pnuemonia, COVID - xray worsening- assuming COVID-19 pna- but may be volume overloaded -hypercapneic resp acidosis -adjust vent per pulm -on vanco for staph aureus pna 4.DM control -glucose elevated- ON STEROIDS 5. echo okay 6. metabolic acidosis -improving- avoid LR as has potassium in it -pt is on 1/2 ns- helping na and met acidosis -repeat abg w/ lytes 7.anemia meds reviewed -check vanco troughs-KEEP UNDER 19 -poor MS discussed w/ RN Will follow with you. Attestations Medical Necessity Statement*: hyperkalemia, pna, covid-19, VDRF Time Spent in Patient Care: 16 - 35 minutes Coding Level of Care Code Acute [place] [employer] Manager for Annaleeg Mildred
[2020-10-05 06:11] LABS: Glucose Point of Care 134 mg/dL (70-110)
[2020-10-05 06:23] LABS: ABG PCO2 50.9 mmHg (35-45); ABG PH Result 7.26 (7.35-7.45); Arterial Blood Gas Hematocrit 29.3 % (42-52); Base Excess ABG -4.1 mmol/L (-2.0-2.0); Blood Gas Allen Test Pos; Blood Gas Sample Type Arterial; Carboxyhemoglobin 0.9 %THgb (0.4-20.1); HGB O2 Sat 91.5 % (95-100); Ionized Calcium Level - ABG 1.1 mmol/L (1.1-1.4); Methemoglobin 1.2 % (0.4-1.5); Oxygen Saturation ABG 93.4; PO2 ABG 75.7 mmHg (80.0-100.0); Potassium Level - ABG 6.2 mmol/L (3.5-5.0); Total Hemoglobin 9.6 g/dL (14-18)
[2020-10-05 06:25] LABS: Alveolar-Arterial Oxygen Gradi 56.7 mmHg (5-10); Oxygen Device VENT
[2020-10-05 06:27] LABS: Blood Gas Sample Site ART LINE
[2020-10-05] MEDS: dexmedetomidine 400 MCG in sodium chloride 0.9% (100 ml) 100 ML 17.6 MCG IV (07:04)
[2020-10-05] MEDS: dextrose 50% syringe 50 mL IVP (07:43)
[2020-10-05] MEDS: insulin regular-human 10 UNIT in SYRINGE 1 EACH IVP (07:51)
[2020-10-05] MEDS: sodium polystyrene sulfonate 15 gm/60 mL Btl 30 GM PO (07:58)
[2020-10-05] MEDS: insulin glargine 100 units/1 mL 10 UNIT SUBCUT ×2 (09:20→18:13)
[2020-10-05] MEDS: zinc gluconate 50 mg Tablet PO (09:21)
[2020-10-05 09:39] LABS: Vancomycin Trough 6.7 ug/mL (10-15)
[2020-10-05] MEDS: vancomycin 1,500 MG/300 ML PIGGYBACK 200 MG IV (10:51)
[2020-10-05] MEDS: dexmedetomidine 400 MCG in sodium chloride 0.9% (100 ml) 100 ML 23.5 MCG IV ×3 (11:50→21:46)
[2020-10-05 11:58] LABS: Glucose Point of Care 134 mg/dL (70-110)
[2020-10-05 13:35] LABS: Anion Gap 12.4 (5-19); Blood Urea Nitrogen 61 mg/dL (8-23); Calcium 7.7 mg/dL (8.5-10.5); Carbon Dioxide 22 mmol/L (22-29); Chloride 118 mmol/L (98-107); Glomerular Filtration Rate 47.1 mL/min (90-130); Glucose 174 mg/dL (65-115); Osmolality Calculated 323 mOsm/kg (285-295); Potassium 6.4 mmol/L (3.5-5.1); Sodium 146 mmol/L (136-145)
[2020-10-05 13:44] LABS: Blood Gas CCRB By 2120
[2020-10-05 13:45] LABS: Alveolar-Arterial Oxygen Gradi 569.7 mmHg (5-10); Blood Gas CCRB Time 2140; Ionized Calcium Level - ABG 1.2 mmol/L (1.1-1.4); Methemoglobin 0.3 % (0.4-1.5); Total Hemoglobin 14.1 g/dL (14-18)
--- NOTE | 2020-10-05 15:06 | P.PN_ITS ---
Subjective Subjective: Interval history: 65-year-old male with a past medical history significant for hypertension, dyslipidemia and diabetes mellitus who was recently diagnosed with COVID-19 infection requiring admission to [facility] on 09/26 for hypoxic respiratory failure. patient was reported to have oxygen saturation in low 70s for which he was placed on 4 L however in the next 24 hours he progressively worsened. Noted to have increased work of breathing and high-flow O2 requirements. He was initiated on remdesivir of which she had received a loading dose on 09/26 and 2nd day dose n 09/27 per tranfering physician. Bravo was also empirically started on azithromycin and cefdinir. Chest x-ray had showed findings consistent with COVID-19 pneumonia. And laboratory workup in review appeared to be stable except D-dimer which was above 7. He was empirically started on Eliquis 5 mg oral twice daily. Due to progressive decline patient was transferred to [facility] viral ICU. Upon arrival patient was found to be hypoxic ( sats in 70s) and in respiratory distress. He was immediately placed on BiPAP with Fio2 of 100% after which he gradually improved. arterial blood gases were obtained which showed a pH of 7.42, pCO2 of 31.9, PO2 of 51.8 and bicarb 20.5. Laboratory workup on arrival was repeated which showed a WBC of 7.0, hemoglobin 12.8, hematocrit 38.9 and a p latelet count of 151. sodium 130, potassium 4.0, chloride 95, bicarb 20, BUN 13 and creatinine is 0.7. Lactic acid of 1.7. LFTs were within normal limits. Procalcitonin was 0.55. Shortly after arrival patient was noted to have respiratory failure with BiPAP requiring 100% FiO2. Due to this patient was intubated and placed on mechanical ventilation. Pulmonary medicine was consulted. Patient was noted to have severe adult respiratory distress syndrome likely from COVID-19 pneumonia. He was in itiated on deep sedation protocol and subsequently started on NBM, initially with nimbex however to do low supply this was changed to rocoronium. Due to high dose requirement of sedatives to maintain deep sedation ( RASS -4) while on NMB he was note to have hypotensive episodes. Central line was placed and he was started on levophed. Fio2 was weaned to 50% on 09/30. NMB was held. Unfortunately his hospitalization was complicated with hyperglycemia likely due to decadron. In order to achieve blood glucose goal of less than 180 he was placed on insulin ggt per protocol. Also found to have worsening acute renal failure with creatinine increasing from 0.7 to 3.2 Ua NA was noted to be less than 20. Intravascular volume depletion and thus was initiated on NS at 75cc/hr. Nephrology was consulted. Subjective 09/28 Patient was intubated on placed on vent. Started on sedation in addition to nim sussy. Was proned. Pulmonary consulted. 09/29 Overnight patient was changed from prone to supine. Remains stable. FiO2 was weaned to 90%. Continued on sedatives and paralytics. Did not have any fever episodes. 09/30 Patients Fio2 was weaned to 50%, Pao2/fio2 ratio was 138. His rocoronium was sto pped. Noted to have stable urinary output however creatinine had worsened. Low grade fevers. 10/01 Overnight patient was noted have increased FiO2 requirements from 50 to 70. patient was breathing above the vent at a rate of 22. he was resumed on NMB ggt and plan to be place in prone position. Transitioned off insulin gtt to SQ insulin. 10/02 Patient was noted to have Tmax of 102. Fever noted yesterday am. Was placed again in prone position last evening. Remained on sedation. urine output inc reasing. 10/03 Overnight patient remained stable However did have an episode of fever this morning. T-max of 102?. Also noted to be hyperglycemic. Given Lasix last night. noted > 3l u/o . 10/04 Fever curve improving 10/05 Clinically unchanged overnight. Remained on mechanical ventilation. Sedated. T-max 101.1. Was found to have hyperkalemia treated with Kayexalate and calcium gluconate. Medications: Reviewed: Yes Medication Review Details: Current Medications Acetaminophen (Acetaminophen 325 Mg Tablet) 650 mg PO Q6H PRN PRN Reason: MILD PAIN Last Admin: 10/05/20 05:01 Dose: 650 mg Documented by: Albuterol/Ipratropium (Ipratropium-Albuterol 3 Ml Neb) 3 ml INHALATION Q4 H.RESPIRATORY JAYSON Last Admin: 10/05/20 04:20 Dose: 3 ml Documented by: Artificial Tears (Artificial Tears Op Soln 15 Ml Btl) 1 drop EYE-BOTH Q4H JAYSON Last Admin: 10/05/20 02:51 Dose: 1 drop Documented by: Dexamethasone (Dexamethasone 4 Mg/Ml Inj) 6 mg IVP Q24H JAYSON Stop: 10/07/20 16:29 Last Admin: 10/04/20 16:42 Dose: 6 mg Documented by: Dextrose (Dextrose 50% Syringe 50 Ml) 25 ml IVP ONCE PRN; Protocol PRN Reason: hypoglycemia protocol Dextrose (Dextrose 50% Syringe 50 Ml) 50 ml IVP PRN PRN; Protocol PRN Reason: hypoglycemia protocol Enoxaparin Sodium (Enoxaparin 40 Mg/0.4 Ml Syringe) 40 mg SUBCUT Q24H JAYSON Last Admin: 10/04/20 21:14 Dose: 40 mg Documented by: Famotidine (Famotidine 20 Mg/2 Ml Inj) 20 mg IVP Q12H JAYSON Last Admin: 10/05/20 02:40 Dose: 20 mg Documented by: Glucagon (Glucagon 1 Mg/Ml Inj 1 Ml) 1 mg IM ONCE PRN; Protocol PRN Reason: Adult Acute Hypoglycemia Prot. Dextrose (D5w) 500 mls @ 100 mls/hr IV ONCE PRN; Protocol PRN Reason: Adult Acute Hypoglycemia Prot Propofol (Diprivan) 1,000 mg in 100 mls @ 0 mls/hr IV .Q0M JAYSON; Protocol Last Admin: 10/05/20 05:02 Dose: 50 mcg/kg/min, 29 mls/hr Documented by: Norepinephrine Bitartrate 4 mg (/ Dextrose) 254 mls @ 0 mls/hr IV .Q0M JAYSON; Protocol Last Titration: 10/05/20 02:44 Dose: 0 mcg/min, 0 mls/hr Documented by: Sodium Chloride (Sodium Chloride 0.9%) 1,000 mls @ 0 mls/hr XX .Q0M JAYSON Last Infusion: 10/02/20 19:33 Dose: Infused Documented by: Dexmedetomidine HCl 400 mcg/ (Sodium Chloride) 104 mls @ 0 mls/hr IV .Q0M JAYSON; Protocol Last Titration: 10/05/20 02:44 Dose: 0.7 mcg/kg/hr, 17.6 mls/hr Documented by: Fentanyl 1,000 mcg/ Sodium (Chloride) 100 mls @ 0 mls/hr IV .Q0M JAYSON; Protocol Last Admin: 10/04/20 23:30 Dose: 125 mcg/hr, 12.5 mls/hr Documented by: Vancomycin/PEG/NADA/Lysine/Water (Vancocin) 1,500 mg in 300 mls @ 200 mls/hr IV Q24H [facility] Last Infusion: 10/04/20 19:41 Dose: Infused Documented by: Imipenem/Cilastatin Sodium 500 (mg/ Sodium Chloride) 100 mls @ 200 mls/hr IV Q8H [facility]; Protocol Last Infusion: 10/05/20 02:43 Dose: 0 mls/hr Documented by: Sodium Chloride (Sodium Chloride 0.45%) 1,000 mls @ 100 mls/hr IV .Q10H [facility] Last Admin: 10/05/20 02:40 Dose: 100 mls/hr Documented by: Insulin Aspart (Insulin Aspart 100 Unit/1 Ml) 0 unit SUBCUT Q4H [facility]; Protocol Last Admin: 10/05/20 02:40 Dose: 4 unit Documented by: Insulin Glargine (Insulin Glargine 100 Units/1 Ml) 10 unit SUBCUT BID [facility] Last Admin: 10/04/20 17:38 Dose: 10 unit Documented by: Midazolam HCl (Midazolam 1 Mg/Ml Inj 2 Ml) 2 mg IVP Q2H PRN PRN Reason: SEDATION Last Admin: 10/04/20 10:53 Dose: 2 mg Documented by: Zinc Gluconate (Zinc Gluconate 50 Mg Tablet) 50 mg PO DAILY [facility] Last Admin: 10/04/20 09:04 Dose: 50 mg Documented by: Vitals/I&O/Wt Last Vital Signs Temp 100.1 F H 10/05/20 08:00 Pulse 73 10/05/20 11:24 Resp 24 H 10/05/20 13:25 BP 103/61 10/05/20 10:00 Pulse Ox 89 L 10/05/20 11:21 10/05/20 10/05/20 10/05/20 06:59 14:59 22:59 Intake Total 1592.893 / 4825.972 1642.350 / 1642.350 Output Total 1300 / 2825 Balance 292.893 / 2000.972 1642.350 / 1642.350 Weight last 48 hrs Weight 103.504 kg Weight 96.797 kg Physical Exam 2 Narrative: EXAM NARRATIVE: General - Intubated on MV HEENT- ET tube Chest - vented CVS- sinus tachycardia Abdomen- appeared non-distended Extremities- no edema Urinary Catheter Management^: Noel: Cath Placed During This Visit: yes Reason for Continuing Indwelling Catheter: Accurate Measurement of Urinary Output in Critically Ill Patients Urinary Catheter Date of Insertion: 09/27/20 Urinary Catheter Time of Insertion: 20:00 Data : 10/04/20 03:20 10/05/20 12:45 Micro: Microbiology 10/03/20 07:55 Blood Culture - Preliminary Blood Coagulase negativ staphylococc 10/03/20 07:50 Blood Culture - Preliminary Blood Coagulase negativ staphylococc 10/02/20 15:25 Urine Culture - Final Urine,Clean Catch 10/02/20 11:20 Gram Stain - Final Sputum - Endotracheal Tube Aspirate Sputum Culture - Final Staphylococcus aureus 10/02/20 15:45 Blood Culture - Preliminary Blood 10/02/20 15:20 Blood Culture - Preliminary Blood A&P Assessment and plan (1) Acute respiratory failure with hypoxia: Status: Acute (2) Pneumonia due to COVID-19 virus: Status: Acute (3) Dyslipidemia: Status: Acute (4) Diabetes mellitus: Status: Acute Qualifiers: Diabetes mellitus type: type 2 Diabetes mellitus terminologist insulin use: unspecified skilled nursing insulin use status Diabetes mellitus complication status: with other specified complication Qualified Code(s): E11.69 - Type 2 diabetes mellitus with other specified complication (5) Hypertension: Status: Acute Qualifiers: Hypertension type: unspecified Qualified Code(s): I10 - Essential (primary) hypertension Acute respiratory distress syndrome on Mechanical Ventilation ( 09/27 ) - Due to COVID 19 pneumonia now with susepect HCAP - Non-cardiogenic Pulmonary edema Labs - 09/27 -ABG - PH 7.21, pCO2 60.2, PO2 of 54.2 and bicarb 24.4 - 09/28 -ABG - pH 7.21, pCO2 60.3, PO2 120, bicarb 24.2 - 09/29 -ABG - pH 7.33, pCO2 of 43.2, PO2 of 67, bicarb 22.6 on PC, Rate 22 PEEP of 14, Fio2 90%, - 09/30 - ABG 7.40, pCO2 of 31, Po2 of 63, Hco3 of 19.1 on pressure control / Fio2 of 50.0%, PEEP of 14, - 10/01 - ABG - 7.43, 31.8, Po2 57.3, HOC3 21 - Pro- BNP of 616 - Pro-calcitonin 0.55 Imaging : - 09/27 - Chest x-ray -. bilateral pulmonary consolidation L>R, ET tube 2 cm above tiburcio - 09/28 - Multi-lobar pneumonia slightly improved in left lung. - ECHO - LV function WNL - significantly elevated RA pressures. RV not well seen. Sedation/Paralytic - Propofol per protocol - Fentanyl - Versed - Rocoronium per protocol Meds: - Duo-neb q4-6hr scheduled - Decadron 6 mg IV daily - Lovenox 40 mg Sq daily Plan: - Completed 3 days of proning - Continue current sedatives - Versed added - Titrate off levophed if possible - Continue to wean FiO2 as tolerated - Changed to CMV - Continue current settings - Repeat ABG in PM - Repeat abg in am / Repeat chest x-ray in am - D/w Pulmonary medicine Septic shock due to COVID-19 plus Staph pneumonia / Coag negative bacteremia - Sputum culture- Staph aureus - 10/02 - Blood culture - Coag negative staph - all tubes - 09/26 - COVID-19 Labs - Ferritin 1976 -> 3574 - 1256 - CRP 188.8 - LDH - 439 - D-dimer 13.04 - Procal 0.55 Plan: - Completed Remdesivir x 5 days - Continue Decadron 6 mg IV daily - Q2-day Pro-calcitonin, Ferritin, CRP, LDH - T-max 101 this AM - Repeat Blood culture in am - Vancomycin pharmacy to dose - Primixin 500mg IV q6hr - With bacteremia and ongoing fever will have to change all lines / culture tip Acute renal failure / Rhabdomyolysis / Hyperkalemia - Due to Hypotensive episodes, COVID-19 , rhabdo Labs : - Creatinine 0.7 - 1.2 - 2.2 - 3.2 - > 2.7 - 1.8 - > 1.5 - CK 2666 - > Improving Plan: - Continue IVF as per nephro - currently on 045 NS 100 cc/hr - K 6.7 today - s/p kayexalate 30g PO x 1, calcium gluconate 1g iv x 1 in am - Repeat BMP in am - Noel in place - Continue free h20 flushes via OG - Monitor sodium levels - Nephrology on board Uncontrolled Diabetes Mellitus with hyperglycemia - Complicated with decadron - Blood sugar goal < 180 - Hypoglycemia protocol - insulin - Blood sugar in 200s - May need to resume insulin ggt Hx of Hypertenison - Currently hypotensive likely due to sedatives - On Levophed to maintain MAP > 65 - D/C all anti-hypertensives. Lines : - Central / Arterial ( 09/27) Tubes: - ET tube - OG - Noel FEN : - On tube feeding - COnsult with photographic double - 250ml q6hr Free h20 flush GI ppx - Pepcid 20 mg IV BID DVT ppx Lovenox 40 mg SQ daily Attestations Medical Necessity Statement*: Continue current hospitalization for septic shock, vent dependent respiratory failure, COVID-19, bacteremia, Staph pneumonia. Time Spent in Patient Care: (>than 50% of time spent in counselling and/or direct pt care on unit) . Critical Care Time: Critical Care Time (min): 47 Coding Level of Care Code Acute Log Loader Helper for [facility] Fwd Diagnoses Acute respiratory failure with hypoxia J96.01 Pneumonia due to COVID-19 virus U07.1; J12.89 Dyslipidemia E78.5 Diabetes mellitus E11.69 Diabetes mellitus type: type 2 Diabetes mellitus skilled nursing insulin use: unspecified terminologist insulin use status Diabetes mellitus complication status: with other specified complication Hypertension I10 Hypertension type: unspecified
--- NOTE | 2020-10-05 15:27 | XR_ITS ---
WS: [id number] Exam: XR KUB [id number] Date/Time of Exam: 10/05/2020 3:45 PM Reason For Exam: abd distention, tender No bowel obstruction or free air. Organ margins are obscured. An enteric tube is noted and appears to end near the expected region of the duodenum. Levoscoliosis of the lumbar spine. Laminectomy defects noted at L4 and L5. XR/XR KUB 10250 IMPRESSION: 1. No acute abdominal process. 2. Enteric tube in place probably ending near the region of the duodenal bulb.
[2020-10-05 15:49] LABS: Blood Gas Operator Identificat AMH; Blood Gas Sample Type Arterial; Ionized Calcium Level - ABG 1.2 mmol/L (1.1-1.4); Oxygen Device VENT; Potassium Level - ABG 5.8 mmol/L (3.5-5.0)
--- NOTE | 2020-10-05 15:54 | PC.NURSE ---
pt intubated and sedated on vent support. Patient heavily sedated to maintain SPO2 and adequate ventilatory support. Patient was off norepinephrine this am but was restarted for a short time after limited bathing completed. Difficulty ventilating and perfusing patient. Patient did not respond to D50, IV unsulin, or Kayexalate from this am. Dr. Hackett called before Dr. Sutton was notified. Nursing discussed no response to regimen. Orders received. RT has coordinated ventilator adjustments with physician throughout this shift. pt has poor recovery time with minimal activity and visibly gasping on the ventilator. Will call results to renal physician.
[2020-10-05] MEDS: FUROsemide 10 mg/mL SDV 4mL 40 MG IVP ×2 (16:10→23:38)
[2020-10-05 16:26] LABS: ABG PCO2 48.1 mmHg (35-45); ABG PH Result 7.21 (7.35-7.45); Alveolar-Arterial Oxygen Gradi 76.9 mmHg (5-10); Arterial Blood Gas Hematocrit 32.3 % (42-52); Base Excess ABG -8.3 mmol/L (-2.0-2.0); HCO3 ABG 19.3 mmol/L (22-26); Methemoglobin 1.1 % (0.4-1.5); Oxygen Saturation ABG 88.9; PO2 ABG 64.5 mmHg (80.0-100.0); Total Hemoglobin 10.5 g/dL (14-18)
[2020-10-05 16:29] LABS: Blood Gas Sample Site ART LINE
[2020-10-05] MEDS: dexamethasone 4 mg/mL INJ 6 MG IVP (16:31)
[2020-10-05] MEDS: calcium gluconate 0.1 gm/mL 10% SDV 10mL 1 GM IVP ×2 (16:50→23:31)
[2020-10-05] MEDS: enoxaparin 40 mg/0.4 mL Syringe SUBCUT (21:16)
[2020-10-05 21:33] LABS: Anion Gap 16.2 (5-19); Blood Urea Nitrogen 62 mg/dL (8-23); Calcium 7.8 mg/dL (8.5-10.5); Carbon Dioxide 20 mmol/L (22-29); Chloride 115 mmol/L (98-107); Glomerular Filtration Rate 38.2 mL/min (90-130); Glucose 223 mg/dL (65-115); Osmolality Calculated 325 mOsm/kg (285-295); Potassium 6.2 mmol/L (3.5-5.1); Sodium 145 mmol/L (136-145)
[2020-10-05 21:55] LABS: Glucose Point of Care 206 mg/dL (70-110)
[2020-10-05] MEDS: dextrose 50% syringe 50 mL 25 ML IVP (23:29)
[2020-10-05] MEDS: insulin regular-human 10 UNIT in SYRINGE 1 EACH 2 UNIT IVP (23:29)
[2020-10-06] VITALS (65 sets, daily range): BP systolic 101–155; BP diastolic 48–80; PULSE 72–112; RESP 18–27; TEMP 38–38.8; O2SAT 76–93; BMI 31.7
[2020-10-06] MEDS: ipratropium-albuterol 3 mL Neb INHALATION ×6 (00:25→23:19)
[2020-10-06] MEDS: propofol 1,000 MG/100 ML INJ 29 MG IV ×5 (00:51→17:24)
[2020-10-06] MEDS: famotidine 20 mg/2 mL INJ IVP ×2 (00:55→12:41)
[2020-10-06] MEDS: dexmedetomidine 400 MCG in sodium chloride 0.9% (100 ml) 100 ML 23.5 MCG IV ×4 (02:07→14:38)
[2020-10-06 02:31] LABS: Glucose Point of Care 197 mg/dL (70-110)
[2020-10-06 02:31] LABS: Glucose Point of Care 172 mg/dL (70-110)
[2020-10-06] MEDS: acetaminophen 325 mg Tablet 650 MG PO ×2 (02:48→11:57)
[2020-10-06] MEDS: artificial tears Op Soln 15 mL Btl 1 DROP EYE-BOTH ×6 (03:04→23:56)
[2020-10-06 04:52] LABS: Basophils % 0.3 %; Eosinophils # 0.1 10^3/uL (0.0-0.8); Eosinophils % 0.8 %; Hematocrit 33.4 % (42.0-52.0); Lymphocytes # 0.4 10^3/uL (0.8-4.8); Lymphocytes % 5.2 %; Mean Corpuscular HGB Conc 29.9 g/dL (30.0-36.0); Mean Corpuscular Hemoglobin 29.2 pg (28.0-34.0); Mean Corpuscular Volume 97.7 fL (80-94); Mean Platelet Volume 11.2 fL (7.4-10.4); Monocytes # 0.2 10^3/uL (0.2-0.9); Monocytes % 2.2 %; Neutrophils # 7.03 10^3/uL (1.8-7.7); Neutrophils % 89.8 %; Nucleated Red Blood Cells % 0 %; Platelet Count 204 10^3/cmm (130-400); Red Blood Count 3.42 10^6/uL (4.1-5.3); Red Cell Distribution Width 14.6 % (12.1-15.1); White Blood Count 7.8 10^3/uL (4.0-10.0)
[2020-10-06 05:01] LABS: Arterial Blood Gas Hematocrit 38.7 % (42-52); Base Excess ABG -6.4 mmol/L (-2.0-2.0); Blood Gas Operator Identificat JB; Blood Gas Sample Site ARTLINE; Blood Gas Sample Type Arterial; HCO3 ABG 22.7 mmol/L (22-26); Oxygen Device VENT; PO2 ABG 59.9 mmHg (80.0-100.0)
[2020-10-06 05:08] LABS: ABG PCO2 60.6 mmHg (35-45); ABG PH Result 7.18 (7.35-7.45)
[2020-10-06 05:17] LABS: Alanine Aminotransferase 30 U/L (0-41); Albumin Level 1.9 g/dL (3.5-5.2); Alkaline Phosphatase 86 IU/L (40-130); Anion Gap 14.2 (5-19); Aspartate Amino Transferase 45 U/L (0-40); Blood Urea Nitrogen 59 mg/dL (8-23); Calcium 7.8 mg/dL (8.5-10.5); Carbon Dioxide 24 mmol/L (22-29); Chloride 112 mmol/L (98-107); Globulin 3.3 g/dL (1.3-4.6); Glomerular Filtration Rate 35.9 mL/min (90-130); Glucose 192 mg/dL (65-115); Magnesium 2.4 mg/dL (1.7-2.3); Osmolality Calculated 320 mOsm/kg (285-295); Phosphorus 6.1 mg/dL (2.5-4.5); Potassium 6.2 mmol/L (3.5-5.1); Sodium 144 mmol/L (136-145); Total Bilirubin 0.8 mg/dL (0.15-1.2); Total Protein 5.2 g/dL (6.6-8.7)
[2020-10-06 06:17] LABS: Glucose Point of Care 203 mg/dL (70-110)
[2020-10-06] MEDS: vancomycin 1,500 MG/300 ML PIGGYBACK 200 MG IV ×2 (06:45→23:55)
[2020-10-06 08:25] LABS: ABG PCO2 52.3 mmHg (35-45); ABG PH Result 7.26 (7.35-7.45); Blood Gas Sample Type Venous; HCO3 ABG 23.6 mmol/L (22-26); Oxygen Device VENT; PO2 ABG 44.1 mmHg (80.0-100.0)
--- NOTE | 2020-10-06 08:47 | P.PCN_ITS ---
Procedure/Consent Time out: Time Out Performed: Yes Consent: Consent for Procedure: Consent obtained from other (indicate) (Spouse) Procedure Narrative: Pre Procedure diagnosis; acute hyperkalemia COVID-19 positive patient Postprocedure diagnoses the same Procedure done; placement of 11.5 Mauritian 16 cm temporary dialysis catheter right femoral vein under ultrasound guidance and all interpretation was done by me through the whole entire procedure. Medications were reviewed to assess for anticoagulant usage. Risks and benefits and prevention of central line associated blood stream infection (CLABSI) were discussed with the patient/CPOA, and a consent was obtained. Monitors were in place and monitored throughout the procedure. All necessary supplies were available prior to start. Hand hygiene was completed prior to starting. Maximum barrier technique was utilized including a sterile gown, sterile gloves with a hat and mask. Site was was prepped with [chlorhexidine] and a full body drape was placed. 5 mL of 2% lidocaine was injected into the skin with a 25 gauge needle. Description Pre-prep ultrasound was done shows patency of the right femoral vein without intraluminal thrombosis with my personal interpretation. Right groin hair was removed by me bedside Prep& drape was done under the usual sterile technique of right groin area,Local anesthetic in the form of 1% lidocaine infiltrated at the site of insertion of the catheter,ultrasound guidance(interpretation was done through the whole entire procedure by me )right femoral vein stick showed retrieval of venous blood was bit pulsatile but was venous in color, a bedside Amphibian test was done and was negative for arterial pulsations.Then a VBG was sent for confirmation that showed a PO2 of 44.1 mmHg which is coinciding with venous blood. Then a guidewire was placed through the needle, the guidewire was secured to the drapes with a hemostat and the needle was taken out, 11 blade knife was used to create a skin incision at the site of insertion of the catheter followed by that serial dilators ,the dilator was then taken out, guide wire maintained to be in good position and the hemodialysis catheter 11.5 Mauritian was introduced onto the guidewire, with venous and arterial hubs were flushed and retrieved venous blood without difficulty. Hep-Lock's were then applied.3-0 nylon sutures were applied to secure the catheter to the patient's skin TYPE OF PLACEMENT: Nontunneled temporary dialysis catheter right femoral vein TUNNELED:(NO) IMAGING UTILIZED:~ [Ultrasound guided approach/and interpretation of images done by me through the procedure] Interventional Radiologist Val ICU nurse ANESTHESIA: [Local lidocaine 1%] Estimated blood loss less than 20 ml No specimen Location VICU I was present for the whole entire procedure Acute Procedures Epistaxis Control: Time out performed: Yes
[2020-10-06 09:11] LABS: Glucose Point of Care 127 mg/dL (70-110)
[2020-10-06] MEDS: zinc gluconate 50 mg Tablet PO (09:14)
[2020-10-06] MEDS: insulin glargine 100 units/1 mL 10 UNIT SUBCUT ×2 (09:15→20:55)
[2020-10-06 11:51] LABS: Glucose Point of Care 151 mg/dL (70-110)
--- NOTE | 2020-10-06 11:54 | PM.PN ---
Subjective Subjective: Interval history: He remains critically sick in the intensive care unit. Systolic blood pressure did drop down stay on the Levophed was increased to 12. His oxygen saturation remains in the low 80 range despite FiO2 100% and PEEP of 14. Blood cultures are noted to be positive. Vitals/I&O/Wt Last Vital Signs Temp 100.8 F H 10/06/20 07:00 Pulse 83 10/06/20 10:15 Resp 24 H 10/06/20 10:41 BP 123/68 10/06/20 10:00 Pulse Ox 83 L 10/06/20 10:15 10/05/20 10/06/20 10/06/20 22:59 06:59 14:59 Intake Total 1976.434 / 3618.784 1604.125 / 5222.909 404.850 / 404.850 Output Total 2200 / 2200 1850 / 4050 Balance -223.566 / 1418.784 -245.875 / 1172.909 404.850 / 404.850 Weight last 48 hrs Weight 103.192 kg Weight 103.504 kg Physical Exam Narrative: EXAM NARRATIVE: Constitutional: Sedated and vented l HEENT: Wet mucosa, no jvp, non icteric Lungs: Bilaterally poor air entry CVS: S1 S2, no murmurs Abdo: Soft, BS ok Ext 4: Minimal edema, peripheral perfusion with no cyanosis Neurological: sedated Urinary Catheter Management^: Noel: Cath Placed During This Visit: yes Reason for Continuing Indwelling Catheter: Accurate Measurement of Urinary Output in Critically Ill Patients Urinary Catheter Date of Insertion: 09/27/20 Urinary Catheter Time of Insertion: 20:00 Data : 10/06/20 04:30 10/06/20 04:30 Micro: Microbiology 10/06/20 04:30 Blood Culture - Preliminary Blood SPECIMEN COLLECTED 10/06/20 04:30 Blood Culture - Preliminary Blood SPECIMEN COLLECTED 10/02/20 15:45 Blood Culture - Preliminary Blood Coagulase negativ staphylococc Coagulase negativ staphylococc#2 10/02/20 15:20 Blood Culture - Preliminary Blood Coagulase negativ staphylococc Coagulase negativ staphylococc#2 10/03/20 07:55 Blood Culture - Preliminary Blood Coagulase negativ staphylococc 10/03/20 07:50 Blood Culture - Preliminary Blood Coagulase negativ staphylococc 10/02/20 15:25 Urine Culture - Final Urine,Clean Catch A&P Additional A&P Information 1. NADIYA - ischemic/septic ATN - Ideally we would perform CRRT so that we could correct electrolytes and his volume status with the least impact on hemodynamics, however, at this time there are now limited options given bed availability in the surrounding state. We will attempt hemodialysis today to correct critical hyperkalemia and to attempt to pull as much volume as his hemodynamics will allow us to. DC ivf Daily evaluation for dialysis Dose medications for GFR less than 15 on dialysis Strict ins and outs, avoid the usual nephrotoxic agents 2. Vent dependent respiratory failure Secondary to Covid pneumonitis plus superinfection with bacteria. Combination antibiotics, steroids, Abx FiO2 100%, PEEP 14 Mgmt per ICU team 3. Lytes - hyperK, acidosis - will correct with effective dialysis - Very poor prognosis Thank you for consultation, it is a pleasure to follow these cases with you Exam and interview performed with aid of bedside RN using telemedicine Time spent 20 min inc > 50% of time in face to face counseling Dennis Egan MD [facility] [phone] Attestations Medical Necessity Statement*: eval for NADIYA Coding Level of Care Code Acute Rn Document Improvement for Annaleeg Mildred
[2020-10-06 13:27] LABS: Alveolar-Arterial Oxygen Gradi 72.6 mmHg (5-10); Arterial Blood Gas Hematocrit 31.2 % (42-52); Base Excess ABG -6.6 mmol/L (-2.0-2.0); Blood Gas Allen Test Pos; Blood Gas Sample Site Not specified; Blood Gas Sample Type Arterial; Carboxyhemoglobin 1.2 %THgb (0.4-20.1); HGB O2 Sat 81.3 % (95-100); Ionized Calcium Level - ABG 1.1 mmol/L (1.1-1.4); Methemoglobin 0.4 % (0.4-1.5); Oxygen Device VENT; Oxygen Saturation ABG 82.6; PO2 ABG 57.7 mmHg (80.0-100.0); Potassium Level - ABG 5.3 mmol/L (3.5-5.0); Total Hemoglobin 10.2 g/dL (14-18)
[2020-10-06 13:30] LABS: ABG PCO2 78.3 mmHg (35-45); ABG PH Result 7.09 (7.35-7.45)
[2020-10-06 14:22] LABS: Glucose Point of Care 137 mg/dL (70-110)
[2020-10-06 14:28] LABS: Glucose Point of Care 179 mg/dL (70-110)
[2020-10-06] MEDS: dexamethasone 4 mg/mL INJ 6 MG IVP (15:53)
--- NOTE | 2020-10-06 16:09 | PC.NURSE ---
recieved from vicu unresponsive at this time linen change done .. weaned down on propofol to 30 and fentyl to 75 at this time resp rate rapid at 26 per min. monitor stach at this time oral care done and noted pressure areas on both buttocks position to side . here with orders for paralytic to be started at this time pupils pinpoint and no response from pt informed doctor pt not responsing but wanted it on him to control resp rate
--- NOTE | 2020-10-06 16:35 | PC.NURSE ---
awaiting paralytic to come from pharmacy . diaylisis here to start .
--- NOTE | 2020-10-06 17:41 | PC.NURSE ---
rocuronium started after talking with phamacy .. no policy in place according to internet marketing manager to run as per pharmacy suggests..
--- NOTE | 2020-10-06 17:46 | PC.NURSE ---
no real response noted before paralytic and non really after
[2020-10-06 18:06] LABS: ABG PCO2 75.1 mmHg (35-45); ABG PH Result 7.15 (7.35-7.45); Alveolar-Arterial Oxygen Gradi 73.5 mmHg (5-10); Arterial Blood Gas Hematocrit 31.9 % (42-52); Base Excess ABG -3.9 mmol/L (-2.0-2.0); Blood Gas Allen Test Pos; Blood Gas Operator Identificat BD; Blood Gas Sample Site aline; Blood Gas Sample Type Arterial; Carboxyhemoglobin 1.1 %THgb (0.4-20.1); HGB O2 Sat 83.2 % (95-100); Ionized Calcium Level - ABG 1.1 mmol/L (1.1-1.4); Oxygen Device VENT; Oxygen Saturation ABG 84.9; PO2 ABG 59.1 mmHg (80.0-100.0); Potassium Level - ABG 5.2 mmol/L (3.5-5.0); Total Hemoglobin 10.4 g/dL (14-18)
[2020-10-06 18:09] LABS: Glucose Point of Care 104 mg/dL (70-110)
--- NOTE | 2020-10-06 19:06 | PC.NURSE ---
verbal permit done for diaylis per
--- NOTE | 2020-10-06 19:08 | PC.NURSE ---
1115 Dr. Rodriguez at bedside. Reviewed vital signs, including low O2 sat and elevated temp, IV drips, labs, cultures, ABX, and plans for HD. Ventilator adjustments made per RT. 1300 Dr. Rodriguez at bedside. Reviewed vital signs, medications and vent settings. Orders to transfer patient to ICU for HD.
[2020-10-06] MEDS: enoxaparin 40 mg/0.4 mL Syringe SUBCUT (20:56)
--- NOTE | 2020-10-06 21:04 | P.PN_ITS ---
Subjective Subjective: Interval history: 65-year-old male with a past medical history significant for hypertension, dyslipidemia and diabetes mellitus who was recently diagnosed with COVID-19 infection requiring admission to [facility] on 09/26 for hypoxic respiratory failure. patient was reported to have oxygen saturation in low 70s for which he was placed on 4 L however in the next 24 hours he progressively worsened. Noted to have increased work of breathing and high-flow O2 requirements. He was initiated on remdesivir of which she had received a loading dose on 09/26 and 2nd day dose n 09/27 per tranfering physician. Bravo was also empirically started on azithromycin and cefdinir. Chest x-ray had showed findings consistent with COVID-19 pneumonia. And laboratory workup in review appeared to be stable except D-dimer which was above 7. He was empirically started on Eliquis 5 mg oral twice daily. Due to progressive decline patient was transferred to [facility] viral ICU. Upon arrival patient was found to be hypoxic ( sats in 70s) and in respiratory distress. He was immediately placed on BiPAP with Fio2 of 100% after which he gradually improved. arterial blood gases were obtained which showed a pH of 7.42, pCO2 of 31.9, PO2 of 51.8 and bicarb 20.5. Laboratory workup on arrival was repeated which showed a WBC of 7.0, hemoglobin 12.8, hematocrit 38.9 and a p latelet count of 151. sodium 130, potassium 4.0, chloride 95, bicarb 20, BUN 13 and creatinine is 0.7. Lactic acid of 1.7. LFTs were within normal limits. Procalcitonin was 0.55. Shortly after arrival patient was noted to have respiratory failure with BiPAP requiring 100% FiO2. Due to this patient was intubated and placed on mechanical ventilation. Pulmonary medicine was consulted. Patient was noted to have severe adult respiratory distress syndrome likely from COVID-19 pneumonia. He was in itiated on deep sedation protocol and subsequently started on NBM, initially with nimbex however to do low supply this was changed to rocoronium. Due to high dose requirement of sedatives to maintain deep sedation ( RASS -4) while on NMB he was note to have hypotensive episodes. Central line was placed and he was started on levophed. Fio2 was weaned to 50% on 09/30. NMB was held. Unfortunately his hospitalization was complicated with hyperglycemia likely due to decadron. In order to achieve blood glucose goal of less than 180 he was placed on insulin ggt per protocol. Also found to have worsening acute renal failure with creatinine increasing from 0.7 to 3.2 Ua NA was noted to be less than 20. Intravascular volume depletion and thus was initiated on NS at 75cc/hr. Nephrology was consulted. Subjective 09/28 Patient was intubated on placed on vent. Started on sedation in addition to nim sussy. Was proned. Pulmonary consulted. 09/29 Overnight patient was changed from prone to supine. Remains stable. FiO2 was weaned to 90%. Continued on sedatives and paralytics. Did not have any fever episodes. 09/30 Patients Fio2 was weaned to 50%, Pao2/fio2 ratio was 138. His rocoronium was sto pped. Noted to have stable urinary output however creatinine had worsened. Low grade fevers. 10/01 Overnight patient was noted have increased FiO2 requirements from 50 to 70. patient was breathing above the vent at a rate of 22. he was resumed on NMB ggt and plan to be place in prone position. Transitioned off insulin gtt to SQ insulin. 10/02 Patient was noted to have Tmax of 102. Fever noted yesterday am. Was placed again in prone position last evening. Remained on sedation. urine output inc reasing. 10/03 Overnight patient remained stable However did have an episode of fever this morning. T-max of 102?. Also noted to be hyperglycemic. Given Lasix last night. noted > 3l u/o . 10/04 Fever curve improving 10/05 Clinically unchanged overnight. Remained on mechanical ventilation. Sedated. T-max 101.1. Was found to have hyperkalemia treated with Kayexalate and calcium gluconate. 10/06 Patient was noted to have worsening hypoxia overnight, refractory hyperkalemia requiring an HD catheter placement in am. Patient was then transferred to MICU. Continue to have fevers. Dialysis catheter was placed in a.m.. Medications: Reviewed: Yes Medication Review Details: Current Medications Acetaminophen (Acetaminophen 325 Mg Tablet) 650 mg PO Q6H PRN PRN Reason: MILD PAIN Last Admin: 10/05/20 05:01 Dose: 650 mg Documented by: Albuterol/Ipratropium (Ipratropium-Albuterol 3 Ml Neb) 3 ml INHALATION Q4H.RESPIRATORY [facility]YSON Last Admin: 10/05/20 04:20 Dose: 3 ml Documented by: Artificial Tears (Artificial Tears Op Soln 15 Ml Btl) 1 drop EYE-BOTH Q4H [facility] Last Admin: 10/05/20 02:51 Dose: 1 drop Documented by: Dexamethasone (Dexamethasone 4 Mg/Ml Inj) 6 mg IVP Q24H [facility] Stop: 10/07/20 16:29 Last Admin: 10/04/20 16:42 Dose: 6 mg Documented by: Dextrose (Dextrose 50% Syringe 50 Ml) 25 ml IVP ONCE PRN; Protocol PRN Reason: hypoglycemia protocol Dextrose (Dextrose 50% Syringe 50 Ml) 50 ml IVP PRN PRN; Protocol PRN Reason: hypoglycemia protocol Enoxaparin Sodium (Enoxaparin 40 Mg/0.4 Ml Syringe) 40 mg SUBCUT Q24H [facility] Last Admin: 10/04/20 21:14 Dose: 40 mg Documented by: Famotidine (Famotidine 20 Mg/2 Ml Inj) 20 mg IVP Q12H [facility] Last Admin: 10/05/20 02:40 Dose: 20 mg Documented by: Glucagon (Glucagon 1 Mg/Ml Inj 1 Ml) 1 mg IM ONCE PRN; Protocol PRN Reason: Adult Acute Hypoglycemia Prot. Dextrose (D5w) 500 mls @ 100 mls/hr IV ONCE PRN; Protocol PRN Reason: Adult Acute Hypoglycemia Prot Propofol (Diprivan) 1,000 mg in 100 mls @ 0 mls/hr IV .Q0M [facility]; Protocol Last Admin: 10/05/20 05:02 Dose: 50 mcg/kg/min, 29 mls/hr Documented by: Norepinephrine Bitartrate 4 mg (/ Dextrose) 254 mls @ 0 mls/hr IV .Q0M [facility]; Protocol Last Titration: 10/05/20 02:44 Dose: 0 mcg/min, 0 mls/hr Documented by: Sodium Chloride (Sodium Chloride 0.9%) 1,000 mls @ 0 mls/hr XX .Q0M [facility] Last Infusion: 10/02/20 19:33 Dose: Infused Documented by: Dexmedetomidine HCl 400 mcg/ (Sodium Chloride) 104 mls @ 0 mls/hr IV .Q0M [facility]; Protocol Last Titration: 10/05/20 02:44 Dose: 0.7 mcg/kg/hr, 17.6 mls/hr Documented by: Fentanyl 1,000 mcg/ Sodium (Chloride) 100 mls @ 0 mls/hr IV .Q0M [facility]; Protocol Last Admin: 10/04/20 23:30 Dose: 125 mcg/hr, 12.5 mls/hr Documented by: Vancomycin/PEG/NADA/Lysine/Water (Vancocin) 1,500 mg in 300 mls @ 200 mls/hr IV Q24H [facility] Last Infusion: 10/04/20 19:41 Dose: Infused Documented by: Imipenem/Cilastatin Sodium 500 (mg/ Sodium Chloride) 100 mls @ 200 mls/hr IV Q8H [facility]; Protocol Last Infusion: 10/05/20 02:43 Dose: 0 mls/hr Documented by: Sodium Chloride (Sodium Chloride 0.45%) 1,000 mls @ 100 mls/hr IV .Q10H [facility] Last Admin: 10/05/20 02:40 Dose: 100 mls/hr Documented by: Insulin Aspart (Insulin Aspart 100 Unit/1 Ml) 0 unit SUBCUT Q4H [facility]; Protocol Last Admin: 10/05/20 02:40 Dose: 4 unit Documented by: Insulin Glargine (Insulin Glargine 100 Units/1 Ml) 10 unit SUBCUT BID [facility] Last Admin: 10/04/20 17:38 Dose: 10 unit Documented by: Midazolam HCl (Midazolam 1 Mg/Ml Inj 2 Ml) 2 mg IVP Q2H PRN PRN Reason: SEDATION Last Admin: 10/04/20 10:53 Dose: 2 mg Documented by: Zinc Gluconate (Zinc Gluconate 50 Mg Tablet) 50 mg PO DAILY [facility] Last Admin: 10/04/20 09:04 Dose: 50 mg Documented by: Vitals/I&O/Wt Last Vital Signs Temp 101.5 F H 10/06/20 16:00 Pulse 106 H 10/06/20 19:34 Resp 26 H 10/06/20 19:35 BP 138/75 10/06/20 16:00 Pulse Ox 87 L 10/06/20 19:34 10/06/20 10/06/20 10/06/20 06:59 14:59 22:59 Intake Total 1604.125 / 5222.909 888.175 / 888.175 88.45 / 976.625 Output Total 1850 / 4050 1300 / 1300 Balance -245.875 / 1172.909 -411.825 / -411.825 88.45 / -323.375 Weight last 48 hrs Weight 103.192 kg Weight 103.504 kg Physical Exam Narrative: EXAM NARRATIVE: General - Intubated on MV HEENT- ET tube Chest - vented CVS- sinus tachycardia Abdomen- appeared non-distended Extremities- no edema Urinary Catheter Management^: Noel: Cath Placed During This Visit: yes Reason for Continuing Indwelling Catheter: Accurate Measurement of Urinary Output in Critically Ill Patients Urinary Catheter Date of Insertion: 09/27/20 Urinary Catheter Time of Insertion: 20:00 Data : 10/07/20 03:15 10/07/20 03:15 Micro: Microbiology 10/02/20 15:45 Blood Culture - Preliminary Blood Coagulase negativ staphylococc Staphylococcus epidermidis 10/02/20 15:20 Blood Culture - Preliminary Blood Coagulase negativ staphylococc Staphylococcus epidermidis 10/06/20 04:30 Blood Culture - Preliminary Blood SPECIMEN COLLECTED 10/06/20 04:30 Blood Culture - Preliminary Blood SPECIMEN COLLECTED A&P Assessment and plan (1) Acute respiratory failure with hypoxia: Status: Acute (2) Pneumonia due to COVID-19 virus: Status: Acute (3) Dyslipidemia: Status: Acute (4) Diabetes mellitus: Status: Acute Qualifiers: Diabetes mellitus complication status: with other specified complication Diabetes mellitus terminal clerk insulin use: unspecified terminal clerk insulin use status Diabetes mellitus type: type 2 Qualified Code(s): E11.69 - Type 2 diabetes mellitus with other specified complication (5) Hypertension: Status: Acute Qualifiers: Hypertension type: unspecified Qualified Code(s): I10 - Essential (primary) hypertension Acute respiratory distress syndrome on Mechanical Ventilation ( 09/27 ) - Due to COVID 19 pneumonia now with suspect HCAP - Non-cardiogenic Pulmonary edema Labs - 09/27 -ABG - PH 7.21, pCO2 60.2, PO2 of 54.2 and bicarb 24.4 - 09/28 -ABG - pH 7.21, pCO2 60.3, PO2 120, bicarb 24.2 - 09/29 -ABG - pH 7.33, pCO2 of 43.2, PO2 of 67, bicarb 22.6 on PC, Rate 22 PEEP of 14, Fio2 90%, - 09/30 - ABG 7.40, pCO2 of 31, Po2 of 63, Hco3 of 19.1 on pressure control / Fio2 of 50.0%, PEEP of 14, - 10/01 - ABG - 7.43, 31.8, Po2 57.3, HOC3 21 - Pro- BNP of 616 - Pro-calcitonin 0.55 Imaging : - 09/27 - Chest x-ray -. bilateral pulmonary consolidation L>R, ET tube 2 cm above tiburcio - 09/28 - Multi-lobar pneumonia slightly improved in left lung. - ECHO - LV function WNL - significantly elevated RA pressures. RV not well seen. Sedation/Paralytic - Propofol per protocol - Fentanyl - Versed - Rocoronium per protocol Meds: - Duo-neb q4-6hr scheduled - Decadron 6 mg IV daily - Lovenox 40 mg Sq daily Plan: Multipel Septic shock due to COVID-19 plus Staph pneumonia / Coag negative bacteremia - Sputum culture- Staph aureus - 10/02 - Blood culture - Coag negative staph - all tubes - 09/26 - COVID-19 Labs - Ferritin 1976 -> 3574 - 1256 - CRP 188.8 - LDH - 439 - D-dimer 13.04 - Procal 0.55 Plan: - Completed Remdesivir x 5 days - Continue Decadron 6 mg IV daily - Q2-day Pro-calcitonin, Ferritin, CRP, LDH - T-max 101 this AM - Repeat Blood culture in am - Vancomycin pharmacy to dose - Primixin 500mg IV q6hr - With bacteremia and ongoing fever will have to change all lines / culture tip Acute renal failure / Rhabdomyolysis / Hyperkalemia - Due to Hypotensive episodes, COVID-19 , rhabdo Labs : - Creatinine 0.7 - 1.2 - 2.2 - 3.2 - > 2.7 - 1.8 - > 1.5 - CK 2666 - > Improving Plan: - Continue IVF as per nephro - currently on 045 NS 100 cc/hr - K 6.7 today - s/p kayexalate 30g PO x 1, calcium gluconate 1g iv x 1 in am - Repeat BMP in am - Noel in place - Continue free h20 flushes via OG - Monitor sodium levels - Nephrology on board Uncontrolled Diabetes Mellitus with hyperglycemia - Complicated with decadron - Blood sugar goal < 180 - Hypoglycemia protocol - insulin - Blood sugar in 200s - May need to resume insulin ggt Hx of Hypertenison - Currently hypotensive likely due to sedatives - On Levophed to maintain MAP > 65 - D/C all anti-hypertensives. Lines : - Central / Arterial ( 09/27) Tubes: - ET tube - OG - Noel FEN : - On tube feeding - COnsult with water control station engineer - 250ml q6hr Free h20 flush GI ppx - Pepcid 20 mg IV BID DVT ppx Lovenox 40 mg SQ daily Attestations Medical Necessity Statement*: Continue current hospitalization for management of vent dependent respiratory failure. Time Spent in Patient Care: Greater than 35 minutes (>than 50% of time spent in counselling and/or direct pt care on unit) . Critical Care Time: Critical Care Time (min): 65 Coding Level of Care Code Acute Daycare Director for [facility] Mildred Diagnoses Acute respiratory failure with hypoxia J96.01 Pneumonia due to COVID-19 virus U07.1; J12.89 Dyslipidemia E78.5 Diabetes mellitus E11.69 Diabetes mellitus complication status: with other specified complication Diabetes mellitus terminal clerk insulin use: unspecified jail insulin use status Diabetes mellitus type: type 2 Hypertension I10 Hypertension type: unspecified
[2020-10-06 22:32] LABS: Arterial Blood Gas Hematocrit 33.7 % (42-52); Base Excess ABG -3.9 mmol/L (-2.0-2.0); Blood Gas Sample Type Arterial; HCO3 ABG 27.6 mmol/L (22-26); Oxygen Device VENT; PO2 ABG 85.6 mmHg (80.0-100.0)
--- NOTE | 2020-10-06 22:47 | PM.MISC ---
Miscellaneous Note Purpose of Documentation: SEDATION PROTOCOL ORDERS Note: Sedation Protocol : PROPOFOL: - Continue per protocol as current. VERSED Dose: 0-10 mg/hr ( 0-10 ml/hr) at 0-10ml/hr IV continuous - > Bolus 2 mg and increase rate by 1 mg/hr q5min until RASS is goal is achieved of - 4 Start infusion : 2 mg/hr Titration dose: 1 mg/hr Titration frequency: Every 5 min Bolus: 2 mg IV bolus PRN if RASS not at goal Do NOT titrate DOWN once RASS at goal and paralytic infusion started FENTANYL If RASS below goal bolus 50 mcg - > increase rate by 50 mcg/hr every 5 min until goal RASS achieved prior to paralytic initiations. Start infusion at : 50 mcg/hr Titrate every 5 minutes ( To maintain RASS goal of -4 to -5 ) PRN Bolus: Fentanyl bolus from infusion bag 50 mcg 50 mcg IV bolus from bag to maintain RASS goal Max: 4 bolus CALL M.D AFTER 4 BOLUS FOR FURTHER INSTRUCTIONS IF RASS GOAL NOT MET. ROCURONIUM Ensure RASS at GOAL - RASS neg 4 - 5 prior to starting paralytic. Process: Set up peripheral nerve stimulator Initiate infusion at the starting dose below Assess for ventilator synchrony Titrate according to below instructions until ventilatory synchrony obtained. When obtained confirm TOF is between 2-4 of 4 twitches. Titration protocol: Initiate infusion at 6 mcg/kg/min: Titrate infusion UP by: 1 mcg/kg/min Titrate UP every: 15 min Titrate infusion DOWN by: 1 mcg/kg/min Titrate DOWN every : 1 hour Monitor Train of Four: Every 1 hour after titration, then every 2 hours if no dosing change
[2020-10-06 22:57] LABS: Vancomycin Trough 14.4 ug/mL (10-15)
[2020-10-06 22:57] LABS: Anion Gap 14.9 (5-19); Blood Urea Nitrogen 43 mg/dL (8-23); Calcium 7.5 mg/dL (8.5-10.5); Carbon Dioxide 27 mmol/L (22-29); Chloride 103 mmol/L (98-107); Glomerular Filtration Rate 40.8 mL/min (90-130); Glucose 151 mg/dL (65-115); Magnesium 2.2 mg/dL (1.7-2.3); Osmolality Calculated 302 mOsm/kg (285-295); Potassium 5.9 mmol/L (3.5-5.1); Sodium 139 mmol/L (136-145)
[2020-10-06 23:09] LABS: ABG PCO2 93.2 mmHg (35-45); ABG PH Result 7.08 (7.35-7.45)
[2020-10-07] VITALS (65 sets, daily range): BP systolic 106–176; BP diastolic 64–86; PULSE 79–156; RESP 19–22; TEMP 35.3–37.7; O2SAT 82–94; BMI 31.7
[2020-10-07] MEDS: famotidine 20 mg/2 mL INJ IVP ×2 (00:23→13:07)
[2020-10-07 00:34] LABS: Arterial Blood Gas Hematocrit 32.1 % (42-52); Blood Gas Sample Type Arterial; HCO3 ABG 25.2 mmol/L (22-26)
[2020-10-07 00:38] LABS: Blood Gas Sample Site ARTLINE; Oxygen Device VENT
[2020-10-07] MEDS: norepinephrine 8 MG in dextrose 5 % 500 ML 30.5 MG IV (01:29)
[2020-10-07] MEDS: artificial tears Op Soln 15 mL Btl 1 DROP EYE-BOTH ×6 (02:16→23:08)
[2020-10-07] MEDS: ipratropium-albuterol 3 mL Neb INHALATION ×6 (02:45→23:50)
[2020-10-07] MEDS: acetaminophen 325 mg Tablet 650 MG PO (03:00)
[2020-10-07 03:33] LABS: Basophils % 0.1 %; Eosinophils % 0.1 %; Hematocrit 31.2 % (42.0-52.0); Hemoglobin 9.1 g/dL (11.7-16.6); Lymphocytes # 0.3 10^3/uL (0.8-4.8); Lymphocytes % 4.5 %; Mean Corpuscular HGB Conc 29.2 g/dL (30.0-36.0); Mean Corpuscular Hemoglobin 28.2 pg (28.0-34.0); Mean Corpuscular Volume 96.6 fL (80-94); Mean Platelet Volume 11.7 fL (7.4-10.4); Monocytes # 0.3 10^3/uL (0.2-0.9); Monocytes % 3.6 %; Neutrophils # 6.27 10^3/uL (1.8-7.7); Neutrophils % 90.8 %; Nucleated Red Blood Cells % 0 %; Platelet Count 130 10^3/cmm (130-400); Red Blood Count 3.23 10^6/uL (4.1-5.3); Red Cell Distribution Width 14.4 % (12.1-15.1); White Blood Count 6.9 10^3/uL (4.0-10.0)
--- NOTE | 2020-10-07 03:53 | PC.NURSE ---
MD made aware of patient experiencing a sustained heart rhythm of 207-217, no new orders. patient broke out of rhythm by self and returned to baseline cardiac rhythm of ST.
[2020-10-07 04:38] LABS: Alanine Aminotransferase 24 U/L (0-41); Albumin Level 1.7 g/dL (3.5-5.2); Alkaline Phosphatase 87 IU/L (40-130); Anion Gap 17.7 (5-19); Aspartate Amino Transferase 43 U/L (0-40); Blood Urea Nitrogen 55 mg/dL (8-23); Calcium 7.5 mg/dL (8.5-10.5); Carbon Dioxide 24 mmol/L (22-29); Chloride 102 mmol/L (98-107); Globulin 3.3 g/dL (1.3-4.6); Glucose 171 mg/dL (65-115); Magnesium 2.2 mg/dL (1.7-2.3); Osmolality Calculated 305 mOsm/kg (285-295); Potassium 5.7 mmol/L (3.5-5.1); Sodium 138 mmol/L (136-145); Total Bilirubin 0.6 mg/dL (0.15-1.2)
[2020-10-07 04:41] LABS: Vancomycin Random 38.4 ug/mL (20.0-40.0)
[2020-10-07 04:46] LABS: Phosphorus 7.8 mg/dL (2.5-4.5)
[2020-10-07 05:22] LABS: ABG PH Result 7.19 (7.35-7.45); Arterial Blood Gas Hematocrit 28.5 % (42-52); Blood Gas Sample Type Arterial; HCO3 ABG 23.6 mmol/L (22-26); Oxygen Device VENT
[2020-10-07 05:27] LABS: ABG PCO2 68.9 mmHg (35-45); ABG PH Result 7.17 (7.35-7.45)
[2020-10-07 05:28] LABS: ABG PCO2 62.5 mmHg (35-45)
--- NOTE | 2020-10-07 05:35 | ECG_ITS ---
[facility] Test Date: 2020-10-07 Pat Name: Ashutosh Brandt Department: Room: ICU10 Gender: Male Possum Trapper: : [id number] Requested By: Breanna Rodriguez Order Number: [id number] Vance MD: Brandan De Dios M.D. Measurements Intervals Lenore Rate: 108 P: 57 OH: 117 QRS: 24 QRSD: 86 T: 14 QT: 304 QTc: 408 Interpretive Statements SINUS TACHYCARDIA WITH SHORT OH INTERVAL ABNORMAL RHYTHM ECG Compared to ECG 09/27/2020 20:28:10 Short OH interval now present Electronically Signed On 10-07-2020 18:06:13 ORDNANCE ARTIFICER by Brandan De Dios M.D. [id number] f
[2020-10-07 06:05] LABS: Slide Review Slide Review Perform
--- NOTE | 2020-10-07 07:57 | PC.NURSE ---
bis monitor range between 40 and 60 sedated paralytic on hold at this time tof less than 2
[2020-10-07] MEDS: insulin glargine 100 units/1 mL 10 UNIT SUBCUT ×2 (08:38→18:38)
[2020-10-07] MEDS: zinc gluconate 50 mg Tablet PO (08:38)
--- NOTE | 2020-10-07 10:16 | PC.NURSE ---
had episode of svt rate up to 180 Dr Gonzalez here at this time pt vagal done back down to stach at rate of 110 oral care done at this time
--- NOTE | 2020-10-07 11:59 | PC.NURSE ---
bis reading up to 60 to 64 respirations more laborded and agonal restarted up recoronium at this time . up in bed repositioned . oral care done .
--- NOTE | 2020-10-07 11:59 | PM.PN ---
Subjective Subjective: Interval history: Events noted, transition to regular ICU room for dialysis. His blood pressure is now very robust and he is off all pressor agents pressure. Remains sedated on high ventilator settings although arguably they are slightly improved. No urine output. Neurologically, no recovering from sedation vacations. Medications: Reviewed: Yes Medication Review Details: Current Medications Acetaminophen (Acetaminophen 325 Mg Tablet) 650 mg PO Q6H PRN PRN Reason: MILD PAIN Last Admin: 10/05/20 05:01 Dose: 650 mg Documented by: Albuterol/Ipratropium (Ipratropium-Albuterol 3 Ml Neb) 3 ml INHALATION Q4H.RESPIRATORY JAYSON Last Admin: 10/05/20 04:20 Dose: 3 ml Documented by: Artificial Tears (Artificial Tears Op Soln 15 Ml Btl) 1 drop EYE-BOTH Q4H [facility] Last Admin: 10/05/20 02:51 Dose: 1 drop Documented by: Dexamethasone (Dexamethasone 4 Mg/Ml Inj) 6 mg IVP Q24H [facility] Stop: 10/07/20 16:29 Last Admin: 10/04/20 16:42 Dose: 6 mg Documented by: Dextrose (Dextrose 50% Syringe 50 Ml) 25 ml IVP ONCE PRN; Protocol PRN Reason: hypoglycemia protocol Dextrose (Dextrose 50% Syringe 50 Ml) 50 ml IVP PRN PRN; Protocol PRN Reason: hypoglycemia protocol Enoxaparin Sodium (Enoxaparin 40 Mg/0.4 Ml Syringe) 40 mg SUBCUT Q24H [facility] Last Admin: 10/04/20 21:14 Dose: 40 mg Documented by: Famotidine (Famotidine 20 Mg/2 Ml Inj) 20 mg IVP Q12H [facility] Last Admin: 10/05/20 02:40 Dose: 20 mg Documented by: Glucagon (Glucagon 1 Mg/Ml Inj 1 Ml) 1 mg IM ONCE PRN; Protocol PRN Reason: Adult Acute Hypoglycemia Prot. Dextrose (D5w) 500 mls @ 100 mls/hr IV ONCE PRN; Protocol PRN Reason: Adult Acute Hypoglycemia Prot Propofol (Diprivan) 1,000 mg in 100 mls @ 0 mls/hr IV .Q0M [facility]; Protocol Last Admin: 10/05/20 05:02 Dose: 50 mcg/kg/min, 29 mls/hr Documented by: Norepinephrine Bitartrate 4 mg (/ Dextrose) 254 mls @ 0 mls/hr IV .Q0M [facility]; Protocol Last Titration: 10/05/20 02:44 Dose: 0 mcg/min, 0 mls/hr Documented by: Sodium Chloride (Sodium Chloride 0.9%) 1,000 mls @ 0 mls/hr XX .Q0M [facility] Last Infusion: 10/02/20 19:33 Dose: Infused Documented by: Dexmedetomidine HCl 400 mcg/ (Sodium Chloride) 104 mls @ 0 mls/hr IV .Q0M [facility]; Protocol Last Titration: 10/05/20 02:44 Dose: 0.7 mcg/kg/hr, 17.6 mls/hr Documented by: Fentanyl 1,000 mcg/ Sodium (Chloride) 100 mls @ 0 mls/hr IV .Q0M [facility]; Protocol Last Admin: 10/04/20 23:30 Dose: 125 mcg/hr, 12.5 mls/hr Documented by: Vancomycin/PEG/NADA/Lysine/Water (Vancocin) 1,500 mg in 300 mls @ 200 mls/hr IV Q24H [facility] Last Infusion: 10/04/20 19:41 Dose: Infused Documented by: Imipenem/Cilastatin Sodium 500 (mg/ Sodium Chloride) 100 mls @ 200 mls/hr IV Q8H [facility]; Protocol Last Infusion: 10/05/20 02:43 Dose: 0 mls/hr Documented by: Sodium Chloride (Sodium Chloride 0.45%) 1,000 mls @ 100 mls/hr IV .Q10H [facility] Last Admin: 10/05/20 02:40 Dose: 100 mls/hr Documented by: Insulin Aspart (Insulin Aspart 100 Unit/1 Ml) 0 unit SUBCUT Q4H [facility]; Protocol Last Admin: 10/05/20 02:40 Dose: 4 unit Documented by: Insulin Glargine (Insulin Glargine 100 Units/1 Ml) 10 unit SUBCUT BID [facility] Last Admin: 10/04/20 17:38 Dose: 10 unit Documented by: Midazolam HCl (Midazolam 1 Mg/Ml Inj 2 Ml) 2 mg IVP Q2H PRN PRN Reason: SEDATION Last Admin: 10/04/20 10:53 Dose: 2 mg Documented by: Zinc Gluconate (Zinc Gluconate 50 Mg Tablet) 50 mg PO DAILY [facility] Last Admin: 10/04/20 09:04 Dose: 50 mg Documented by: Vitals/I&O/Wt Last Vital Signs Temp 98.1 F 10/07/20 10:00 Pulse 112 H 10/07/20 11:45 Resp 22 H 10/07/20 11:43 BP 164/81 10/07/20 11:30 Pulse Ox 89 L 10/07/20 11:43 10/06/20 10/07/20 10/07/20 22:59 06:59 14:59 Intake Total 576.668 / 1764.843 784.770 / 2549.613 Output Total 400 / 1700 400 / 2100 Balance 176.668 / 64.843 384.770 / 449.613 Weight last 48 hrs Weight 103.192 kg Weight 103.192 kg Physical Exam Narrative: EXAM NARRATIVE: Constitutional: Sedated and vented HEENT: Wet mucosa, no jvp, non icteric Lungs: Bilaterally poor air entry CVS: S1 S2, no murmurs Abdo: Soft, BS ok Ext 4: Minimal edema, peripheral perfusion with no cyanosis Neurological: sedated Urinary Catheter Management^: Noel: Cath Placed During This Visit: yes Reason for Continuing Indwelling Catheter: Accurate Measurement of Urinary Output in Critically Ill Patients Urinary Catheter Date of Insertion: 09/27/20 Urinary Catheter Time of Insertion: 20:00 Data : 10/07/20 03:15 10/07/20 03:15 Micro: Microbiology 10/06/20 04:30 Blood Culture - Preliminary Blood NEGATIVE TO DATE 10/06/20 04:30 Blood Culture - Preliminary Blood NEGATIVE TO DATE 10/02/20 15:45 Blood Culture - Preliminary Blood Coagulase negativ staphylococc Staphylococcus epidermidis 10/02/20 15:20 Blood Culture - Preliminary Blood Coagulase negativ staphylococc Staphylococcus epidermidis A&P Additional A&P Information 1. NADIYA - ischemic/septic ATN - Dialysis organized for today; 2k, UF 3L Daily evaluation for dialysis Dose medications for GFR less than 15 on dialysis Strict ins and outs, avoid the usual nephrotoxic agents 2. Vent dependent respiratory failure Secondary to Covid pneumonitis plus superinfection with bacteria. Combination antibiotics, steroids, Abx FiO2 90%, PEEP 14 Mgmt per ICU team 3. Lytes - hyperK, acidosis - will correct with effective dialysis - Very poor prognosis although better hemodynamics since yesterday Thank you for consultation, it is a pleasure to follow these cases with you Exam and interview performed with aid of bedside RN using telemedicine Time spent 20 min inc > 50% of time in face to face counseling Dennis Egan MD [facility] [phone] Attestations Medical Necessity Statement*: eval for NADIYA Coding Level of Care Code Acute Gravity Meter Operator for Me[facility]
--- NOTE | 2020-10-07 13:23 | PC.NURSE ---
sedation eased earlier to bis of 65 with no real response noted with paralytic off at same time 2 plus edema noted oral care done pupils remain 2
--- NOTE | 2020-10-07 13:42 | XRR_ITS ---
PROCEDURE INFORMATION: Exam: XR Chest, 1 View Exam date and time: 10/07/2020 1:43 PM Age: 65 years old Clinical indication: Device placement; Ett placement (vent status) TECHNIQUE: Imaging protocol: XR of the chest Views: 1 view. COMPARISON: CR XR chest 1V portable [id number] 10/04/2020 6:14 AM FINDINGS: The thorax is partially obscured by overlying EKG leads. Lungs: Emphysematous change, interstitial disease, and worsening bilateral airspace disease. Pleural space: No significant pleural effusion. Heart/Mediastinum: No cardiomegaly. Bones/joints: Degenerative change and mild scoliosis. Devices: endotracheal tube, feeding tube, and central venous catheter. The endotracheal tube terminates 4.6 cm above the tiburcio. XR/XR chest 1V portable [id number] IMPRESSION: Emphysematous change, interstitial disease, and worsening bilateral airspace disease.
--- NOTE | 2020-10-07 14:23 | PM.PN ---
Subjective Subjective: Interval history: 65-year-old male with a past medical history significant for hypertension, dyslipidemia and diabetes mellitus who was recently diagnosed with COVID-19 infection requiring admission to [facility] on 09/26 for hypoxic respiratory failure. patient was reported to have oxygen saturation in low 70s for which he was placed on 4 L however in the next 24 hours he progressively worsened. Noted to have increased work of breathing and high-flow O2 requirements. He was initiated on remdesivir of which she had received a loading dose on 09/26 and 2nd day dose n 09/27 per tranfering physician. Bravo was also empirically started on azithromycin and cefdinir. Chest x-ray had showed findings consistent with COVID-19 pneumonia. And laboratory workup in review appeared to be stable except D-dimer which was above 7. He was empirically started on Eliquis 5 mg oral twice daily. Due to progressive decline patient was transferred to [facility] viral ICU. Upon arrival patient was found to be hypoxic ( sats in 70s) and in respiratory distress. He was immediately placed on BiPAP with Fio2 of 100% after which he gradually improved. arterial blood gases were obtained which showed a pH of 7.42, pCO2 of 31.9, PO2 of 51.8 and bicarb 20.5. Laboratory workup on arrival was repeated which showed a WBC of 7.0, hemoglobin 12.8, hematocrit 38.9 and a platelet count of 151. sodium 130, potassium 4.0, chloride 95, bicarb 20, BUN 13 and creatinine is 0.7. Lactic acid of 1.7. LFTs were within normal limits. Procalcitonin was 0.55. Shortly after arrival patient was noted to have respiratory failure with BiPAP requiring 100% FiO2. Due to this patient was intubated and placed on mechanical ventilation. Pulmonary medicine was consulted. Patient was noted to have severe adult respiratory distress syndrome likely from COVID-19 pneumonia. He was initiated on deep sedation protocol and subsequently started on NBM, initially with nimbex however to do low supply this was changed to rocoronium. Due to high dose requirement of sedatives to maintain deep sedation ( RASS -4) while on NMB he was note to have hypotensive episodes. Central line was placed and he was started on levophed. Fio2 was weaned to 50% on 09/30. NMB was held. Unfortunately his hospitalization was complicated with hyperglycemia likely due to decadron. In order to achieve blood glucose goal of less than 180 he was placed on insulin ggt per protocol. Also found to have worsening acute renal failure with creatinine increasing from 0.7 to 3.2 Ua NA was noted to be less than 20. Intravascular volume depletion and thus was initiated on NS at 75cc/hr. Nephrology was consulted. Subjective 09/28 Patient was intubated on placed on vent. Started on sedation in addition to nimbex. Was proned. Pulmonary consulted. 09/29 Overnight patient was changed from prone to supine. Remains stable. FiO2 was weaned to 90%. Continued on sedatives and paralytics. Did not have any fever episodes. 09/30 Patients Fio2 was weaned to 50%, Pao2/fio2 ratio was 138. His rocoronium was stopped. Noted to have stable urinary output however creatinine had worsened. Low grade fevers. 10/01 Overnight patient was noted have increased FiO2 requirements from 50 to 70. patient was breathing above the vent at a rate of 22. he was resumed on NMB ggt and plan to be place in prone position. Transitioned off insulin gtt to SQ insulin. 10/02 Patient was noted to have Tmax of 102. Fever noted yesterday am. Was placed again in prone position last evening. Remained on sedation. urine output increasing. 10/03 Overnight patient remained stable However did have an episode of fever this morning. T-max of 102?. Also noted to be hyperglycemic. Given Lasix last night. noted > 3l u/o . 10/04 Fever curve improving 10/05 Clinically unchanged overnight. Remained on mechanical ventilation. Sedated. T-max 101.1. Was found to have hyperkalemia treated with Kayexalate and calcium gluconate. 10/06 Patient was noted to have worsening hypoxia overnight, refractory hyperkalemia requiring an HD catheter placement in am. Patient was then transferred to MICU. Continue to have fevers. Dialysis catheter was placed in a.m.. 10/07 Overnight patient was transition to MICU. Patient was initiated on dialysis. Continued on deep sedation with propofol, fentanyl and Versed. Continued on Levophed. This morning had brief run of SVT. Resolve with vagal stimulation. Continues to have fever with a T-max of 101?. Medications: Reviewed: Yes Medication Review Details: Current Medications Acetaminophen (Acetaminophen 325 Mg Tablet) 650 mg PO Q6H PRN PRN Reason: MILD PAIN Last Admin: 10/05/20 05:01 Dose: 650 mg Documented by: Albuterol/Ipratropium (Ipratropium-Albuterol 3 Ml Neb) 3 ml INHALATION Q4H.RESPIRATORY [facility] Last Admin: 10/05/20 04:20 Dose: 3 ml Documented by: Artificial Tears (Artificial Tears Op Soln 15 Ml Btl) 1 drop EYE-BOTH Q4H [facility] Last Admin: 10/05/20 02:51 Dose: 1 drop Documented by: Dexamethasone (Dexamethasone 4 Mg/Ml Inj) 6 mg IVP Q24H [facility] Stop: 10/07/20 16:29 Last Admin: 10/04/20 16:42 Dose: 6 mg Documented by: Dextrose (Dextrose 50% Syringe 50 Ml) 25 ml IVP ONCE PRN; Protocol PRN Reason: hypoglycemia protocol Dextrose (Dextrose 50% Syringe 50 Ml) 50 ml IVP PRN PRN; Protocol PRN Reason: hypoglycemia protocol Enoxaparin Sodium (Enoxaparin 40 Mg/0.4 Ml Syringe) 40 mg SUBCUT Q24H [facility] Last Admin: 10/04/20 21:14 Dose: 40 mg Documented by: Famotidine (Famotidine 20 Mg/2 Ml Inj) 20 mg IVP Q12H [facility] Last Admin: 10/05/20 02:40 Dose: 20 mg Documented by: Glucagon (Glucagon 1 Mg/Ml Inj 1 Ml) 1 mg IM ONCE PRN; Protocol PRN Reason: Adult Acute Hypoglycemia Prot. Dextrose (D5w) 500 mls @ 100 mls/hr IV ONCE PRN; Protocol PRN Reason: Adult Acute Hypoglycemia Prot Propofol (Diprivan) 1,000 mg in 100 mls @ 0 mls/hr IV .Q0M [facility]; Protocol Last Admin: 10/05/20 05:02 Dose: 50 mcg/kg/min, 29 mls/hr Documented by: Norepinephrine Bitartrate 4 mg (/ Dextrose) 254 mls @ 0 mls/hr IV .Q0M [facility]; Protocol Last Titration: 10/05/20 02:44 Dose: 0 mcg/min, 0 mls/hr Documented by: Sodium Chloride (Sodium Chloride 0.9%) 1,000 mls @ 0 mls/hr XX .Q0M [facility] Last Infusion: 10/02/20 19:33 Dose: Infused Documented by: Dexmedetomidine HCl 400 mcg/ (Sodium Chloride) 104 mls @ 0 mls/hr IV .Q0M [facility]; Protocol Last Titration: 10/05/20 02:44 Dose: 0.7 mcg/kg/hr, 17.6 mls/hr Documented by: Fentanyl 1,000 mcg/ Sodium (Chloride) 100 mls @ 0 mls/hr IV .Q0M [facility]; Protocol Last Admin: 10/04/20 23:30 Dose: 125 mcg/hr, 12.5 mls/hr Documented by: Vancomycin/PEG/NADA/Lysine/Water (Vancocin) 1,500 mg in 300 mls @ 200 mls/hr IV Q24H [facility] Last Infusion: 10/04/20 19:41 Dose: Infused Documented by: Imipenem/Cilastatin Sodium 500 (mg/ Sodium Chloride) 100 mls @ 200 mls/hr IV Q8H [facility]; Protocol Last Infusion: 10/05/20 02:43 Dose: 0 mls/hr Documented by: Sodium Chloride (Sodium Chloride 0.45%) 1,000 mls @ 100 mls/hr IV .Q10H [facility] Last Admin: 10/05/20 02:40 Dose: 100 mls/hr Documented by: Insulin Aspart (Insulin Aspart 100 Unit/1 Ml) 0 unit SUBCUT Q4H [facility]; Protocol Last Admin: 10/05/20 02:40 Dose: 4 unit Documented by: Insulin Glargine (Insulin Glargine 100 Units/1 Ml) 10 unit SUBCUT BID [facility] Last Admin: 10/04/20 17:38 Dose: 10 unit Documented by: Midazolam HCl (Midazolam 1 Mg/Ml Inj 2 Ml) 2 mg IVP Q2H PRN PRN Reason: SEDATION Last Admin: 10/04/20 10:53 Dose: 2 mg Documented by: Zinc Gluconate (Zinc Gluconate 50 Mg Tablet) 50 mg PO DAILY [facility] Last Admin: 10/04/20 09:04 Dose: 50 mg Documented by: Vitals/I&O/Wt Last Vital Signs Temp 97.7 F 10/07/20 13:00 Pulse 113 H 10/07/20 13:00 Resp 33 H 10/07/20 13:51 BP 143/70 10/07/20 13:00 Pulse Ox 89 L 10/07/20 13:00 10/06/20 10/07/2021 22:59 06:59 14:59 Intake Total 576.668 / 1764.843 784.770 / 2549.613 Output Total 400 / 1700 400 / 2100 Balance 176.668 / 64.843 384.770 / 449.613 Weight last 48 hrs Weight 103.192 kg Weight 103.192 kg Physical Exam Narrative: EXAM NARRATIVE: General - Intubated on MV HEENT- ET tube Chest - vented CVS- sinus tachycardia Abdomen- appeared non-distended Extremities- no edema Urinary Catheter Management^: Noel: Cath Placed During This Visit: yes Reason for Continuing Indwelling Catheter: Accurate Measurement of Urinary Output in Critically Ill Patients Urinary Catheter Date of Insertion: 09/27/20 Urinary Catheter Time of Insertion: 20:00 Data : 10/07/20 03:15 10/07/20 03:15 Micro: Microbiology 10/02/20 15:45 Blood Culture - Final Blood Staphylococcus Auricularis Staphylococcus epidermidis 10/02/20 15:20 Blood Culture - Final Blood Staphylococcus Auricularis Staphylococcus epidermidis 10/06/20 04:30 Blood Culture - Preliminary Blood NEGATIVE TO DATE 10/06/20 04:30 Blood Culture - Preliminary Blood NEGATIVE TO DATE A&P Assessment and plan (1) Acute respiratory failure with hypoxia: Status: Acute (2) Pneumonia due to COVID-19 virus: Status: Acute (3) Dyslipidemia: Status: Acute (4) Diabetes mellitus: Status: Acute Qualifiers: Diabetes mellitus type: type 2 Diabetes mellitus detention insulin use: unspecified detention insulin use status Diabetes mellitus complication status: with other specified complication Qualified Code(s): E11.69 - Type 2 diabetes mellitus with other specified complication (5) Hypertension: Status: Acute Qualifiers: Hypertension type: unspecified Qualified Code(s): I10 - Essential (primary) hypertension Acute respiratory distress syndrome with Hypoxemia - Etiology multi-factorial. COVID-19 with superimposed Staphlococcus aureus pneumonia ( see #2) - Intubated and placed on mechanical vent on 09/27 - 09/28 - Chest x-ray -> bilateral pulmonary consolidation 10/04 - B/L pulmonary infiltrates with minimal improvement. No Ptx - Ferritin 1976 - > 1256 -> 1840 - LDH : 439 -> 437 -> 468 - CRP 188.8 -> 354.6 - Completed Remdesivir x 5 days - Completed Proaning x 3 days - Decadron 6 mg IV daily - Vent: PC-AC, RR 22, PIP of 30, iTime 1.1, PEEP of 14, Fio2 of 90 percent. - Patient - RR 33, M.V of 12.3, Lung compliance 36, Airway resistance 6 - 10/07/19 - ABG 7.19, PCO2 62.5, PO2 80.0, HCO3 of 23.6 - Continue Deep sedation: - Propofol, Versed, Fentanyl per protocol - RASS Goal - negative 4 to 5 - Rocuronium ggt per protocol with BIS,TOF monitoring ( 2-4 twitches/4 ) Q1hr checks post changes to drip ( - Repeat Chest x-ray today - Repeat ABG in AM - Check inflammatory markers in AM ( Ferritin, CRP, D-dimer ) Septic shock due to Staph. Aureus Pneumonia with possible staph epidermidis bacteremia - 10/02 - Sputum culture - MSSA - 10/02 - Blood culture - > Staphylococcus aurecularis/epidermidis 10/03 - Blood culture -> Coagulase negative staphylococcus x 2 - 10/15 - Blood culture x 2 - NGTD - Continue Levophed ggt - Maintain MAP > 65 - Vancomycin pharmacy to dose ( 10/03 ) - Primixin 500 mg IV q8hr ( 10/03 ) - Repeat sputum culture x 1 today - Repeat Blx in am - Check Pneumocystitis DFA/QT-PCR - Check Lactic acid in am - Continue current antibiotics regimen - 10/07- Tmax 101.8 - Tylenol PRN for fever - May consider ID consult Acute kidney failure with refractory Hyperkalemia - Creatinine on admit 0.7 ( 09/27 ) - Increased to 09/29 - 2.2 -> 1.5 -> 2.1 - K 6.7 -> 5.7 - Nephrology on board - Temporary femoral HD catheter placed - First HD on 10/06 - Plan for next HD on 10/08 - Noel in place - Monitor Urine output ( 0.82 ml/kg/hr) Rhabdomyolyis - 2/2 paralytic / Propofol - 2666 - > 1261 -> 708 - Repeat CPK in am - Current on HD Uncontrolled Diabetes Mellitus with Hyperglycemia - On decadron - BS rage stable - Goal < 180 - Lantus 10 units BID - Sliding scale insulin coverage - Blood sugar checks q4h FEN - OG in place - Decrease Fh20 flushes - 100ml q6hr - Tube feeding GI ppx - Pepcid 20 mg IV BID DVT ppx - Lovenox 40 mg SQ daily Disposition: - Patient remains in critical condition with unfortunately poor prognosis. D/w condition with . Adivsed to continue current management with all interventions including HD. In the event of cardiac arrest advised DNR- no CPR. Code status changed to limited. Attestations Medical Necessity Statement*: Patient require further hospitalization for management of respiratory failure on vent, septic shock on IV antibiotics and pressors in addition to refractory hyperkalemia and renal failure requiring dialysis. 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
[2020-10-07 15:39] LABS: ABG PCO2 56.9 mmHg (35-45); ABG PH Result 7.18 (7.35-7.45); Alveolar-Arterial Oxygen Gradi 76.4 mmHg (5-10); Arterial Blood Gas Hematocrit 35.1 % (42-52); Base Excess ABG -7.5 mmol/L (-2.0-2.0); Blood Gas Operator Identificat CAK; Blood Gas Sample Site ALINE; Blood Gas Sample Type Arterial; HCO3 ABG 21.2 mmol/L (22-26); HGB O2 Sat 80.1 % (95-100); Methemoglobin 0.9 % (0.4-1.5); Oxygen Device VENT; Oxygen Saturation ABG 81.7; PO2 ABG 57.3 mmHg (80.0-100.0); Potassium Level - ABG 4.3 mmol/L (3.5-5.0); Total Hemoglobin 11.5 g/dL (14-18)
--- NOTE | 2020-10-07 15:59 | PC.NURSE ---
on dialysis noted diaphoretic and blood pressure low at 50/30 o2 sat of 80 at this time levophed restarted and abgs done at this time ..informed dialysis to hold.
--- NOTE | 2020-10-07 16:03 | PC.NURSE ---
now on levophed at 6mcg noted restarted dialysis at lower rate monitor blood pressure closely
[2020-10-07] MEDS: adenosine 3 mg/mL SDV 2mL 6 MG IVP (16:18)
--- NOTE | 2020-10-07 16:46 | ECG_ITS ---
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 Measurements Intervals [place] Rate: 144 P: HI: QRS: 38 QRSD: 90 T: 7 QT: 263 QTc: 408 Interpretive Statements ATRIAL FLUTTER/TACHYCARDIA WITH RAPID VENTRICULAR RESPONSE WITH ABERRANT CONDUCTION OR VENTRICULAR PREMATURE COMPLEXES MODERATE ST DEPRESSION [0.05+ mV ST DEPRESSION] Compared to ECG 10/07/2020 04:00:29 Ventricular premature complex(es) now present ST (T wave) deviation now present Sinus tachycardia no longer present Short HI interval no longer present Electronically Signed On 10-07-2020 17:42:40 ADULT NURSE PRACTITIONER by Brandan De Dios M.D. [email or web address]
[2020-10-07] MEDS: adenosine 3 mg/mL SDV 2mL 6 MG (17:20)
[2020-10-07 18:20] LABS: Glucose Point of Care 109 mg/dL (70-110)
[2020-10-07 18:20] LABS: Glucose Point of Care 159 mg/dL (70-110)
[2020-10-07 18:20] LABS: Glucose Point of Care 140 mg/dL (70-110)
[2020-10-07 18:20] LABS: Glucose Point of Care 153 mg/dL (70-110)
[2020-10-07 18:20] LABS: Glucose Point of Care 161 mg/dL (70-110)
[2020-10-07 18:20] LABS: Glucose Point of Care 144 mg/dL (70-110)
[2020-10-07] MEDS: enoxaparin 40 mg/0.4 mL Syringe SUBCUT (19:46)
[2020-10-07] MEDS: vancomycin 1,500 MG/300 ML PIGGYBACK 200 MG IV (19:46)
[2020-10-08] VITALS (63 sets, daily range): BP systolic 101–159; BP diastolic 50–83; PULSE 83–102; RESP 20–29; TEMP 35.9–37; O2SAT 88–94; BMI 31.4
[2020-10-08] MEDS: famotidine 20 mg/2 mL INJ IVP ×2 (00:28→12:51)
[2020-10-08 01:05] LABS: Glucose Point of Care 191 mg/dL (70-110)
[2020-10-08] MEDS: propofol 1,000 MG/100 ML INJ 5.8 MG IV (01:39)
[2020-10-08] MEDS: ipratropium-albuterol 3 mL Neb INHALATION ×6 (03:05→23:51)
[2020-10-08] MEDS: artificial tears Op Soln 15 mL Btl 1 DROP EYE-BOTH ×6 (03:15→22:24)
[2020-10-08 03:31] LABS: Arterial Blood Gas Hematocrit 29.5 % (42-52); Base Excess ABG -6.4 mmol/L (-2.0-2.0); Blood Gas Sample Type Arterial; Oxygen Device VENT; PO2 ABG 71.6 mmHg (80.0-100.0)
[2020-10-08 03:32] LABS: ABG PCO2 66.9 mmHg (35-45); ABG PH Result 7.14 (7.35-7.45)
[2020-10-08 03:54] LABS: Basophils % 0.2 %; Eosinophils # 0.1 10^3/uL (0.0-0.8); Eosinophils % 0.7 %; Hematocrit 32.5 % (42.0-52.0); Hemoglobin 9.7 g/dL (11.7-16.6); Lymphocytes # 0.5 10^3/uL (0.8-4.8); Lymphocytes % 3.7 %; Mean Corpuscular HGB Conc 29.8 g/dL (30.0-36.0); Mean Corpuscular Hemoglobin 27.9 pg (28.0-34.0); Mean Corpuscular Volume 93.4 fL (80-94); Mean Platelet Volume 11.9 fL (7.4-10.4); Monocytes # 0.5 10^3/uL (0.2-0.9); Monocytes % 3.6 %; Neutrophils # 11.88 10^3/uL (1.8-7.7); Neutrophils % 90.3 %; Nucleated Red Blood Cells % 0.2 %; Platelet Count 240 10^3/cmm (130-400); Red Blood Count 3.48 10^6/uL (4.1-5.3); Red Cell Distribution Width 14.7 % (12.1-15.1); White Blood Count 13.2 10^3/uL (4.0-10.0)
[2020-10-08 04:20] LABS: Vancomycin Random 36.5 ug/mL (20.0-40.0)
[2020-10-08 04:59] LABS: Procalcitonin 7.12 ng/mL (0-0.5)
[2020-10-08 05:11] LABS: Alanine Aminotransferase 33 U/L (0-41); Albumin Level 1.9 g/dL (3.5-5.2); Alkaline Phosphatase 102 IU/L (40-130); Anion Gap 22.7 (5-19); Aspartate Amino Transferase 37 U/L (0-40); Blood Urea Nitrogen 76 mg/dL (8-23); C Reactive Protein 319.9 mg/L (0.0-4.9); Calcium 7.7 mg/dL (8.5-10.5); Carbon Dioxide 20 mmol/L (22-29); Chloride 100 mmol/L (98-107); Creatine Phosphokinase 272 U/L (39-308); Globulin 3.5 g/dL (1.3-4.6); Glomerular Filtration Rate 21.2 mL/min (90-130); Glucose 166 mg/dL (65-115); Lactate Dehydrogenase 515 U/L (135-225); Magnesium 2.4 mg/dL (1.7-2.3); Osmolality Calculated 312 mOsm/kg (285-295); Potassium 4.7 mmol/L (3.5-5.1); Sodium 138 mmol/L (136-145); Total Bilirubin 0.4 mg/dL (0.15-1.2); Total Protein 5.4 g/dL (6.6-8.7)
[2020-10-08 05:15] LABS: D Dimer >= 20.00 ug/mIFEU (0-0.59)
--- NOTE | 2020-10-08 05:31 | PC.NURSE ---
ToF/BIS 10/07/20 1900 - 4/4 @1999 - /4 @ 2100 - 2/4 @2199 - 2/ @ 2300 - 2/ @10/08/20 0000 - 2/ @ 0100 - 2/4 @ 0200 - 2/4 @ 0300 - 2/ @ 040 - 2 @ 0500 - 2/ @
[2020-10-08 05:32] LABS: Lactate (Lactic Acid level) 1.3 mmol/L (0.5-2.2)
[2020-10-08 05:35] LABS: Phosphorus 8.5 mg/dL (2.5-4.5)
[2020-10-08 07:04] LABS: Ferritin 2963 ng/mL (30-400)
--- NOTE | 2020-10-08 07:36 | PM.PN ---
Subjective Subjective: Interval history: sedated, paralyzed, intubated, pressers in ICU Medications: Reviewed: Yes Medication Review Details: Current Medications Acetaminophen (Acetaminophen 325 Mg Tablet) 650 mg PO Q6H PRN PRN Reason: MILD PAIN Last Admin: 10/07/20 03:00 Dose: 650 mg Documented by: Adenosine (Adenosine 3 Mg/Ml Sdv 2ml) 6 mg IVP ONCE PRN PRN Reason: heart rate Last Admin: 10/07/20 16:18 Dose: 6 mg Documented by: Adenosine (Adenosine 3 Mg/Ml Sdv 2ml) 12 mg IVP ONCE PRN PRN Reason: PRN Albuterol/Ipratropium (Ipratropium-Albuterol 3 Ml Neb) 3 ml INHALATION Q4H.RESPIRATORY [facility] Last Admin: 10/08/20 03:05 Dose: 3 ml Documented by: Artificial Tears (Artificial Tears Op Soln 15 Ml Btl) 1 drop EYE-BOTH Q4H [facility] Last Admin: 10/08/20 06:33 Dose: 1 drop Documented by: Dextrose (Dextrose 50% Syringe 50 Ml) 25 ml IVP ONCE PRN; Protocol PRN Reason: hypoglycemia protocol Dextrose (Dextrose 50% Syringe 50 Ml) 50 ml IVP PRN PRN; Protocol PRN Reason: hypoglycemia protocol Enoxaparin Sodium (Enoxaparin 40 Mg/0.4 Ml Syringe) 40 mg SUBCUT Q24H [facility] Last Admin: 10/07/20 19:46 Dose: 40 mg Documented by: Famotidine (Famotidine 20 Mg/2 Ml Inj) 20 mg IVP Q12H [facility] Last Admin: 10/08/20 00:28 Dose: 20 mg Documented by: Glucagon (Glucagon 1 Mg/Ml Inj 1 Ml) 1 mg IM ONCE PRN; Protocol PRN Reason: Adult Acute Hypoglycemia Prot. Dextrose (D5w) 500 mls @ 100 mls/hr IV ONCE PRN; Protocol PRN Reason: Adult Acute Hypoglycemia Prot Propofol (Diprivan) 1,000 mg in 100 mls @ 0 mls/hr IV .Q0M [facility]; Protocol Last Titration: 10/08/20 04:30 Dose: 5 mcg/kg/min, 2.9 mls/hr Documented by: Norepinephrine Bitartrate 4 mg (/ Dextrose) 254 mls @ 0 mls/hr IV .Q0M [facility]; Protocol Last Titration: 10/07/20 02:09 Dose: 0 mcg/min, 0 mls/hr Documented by: Sodium Chloride (Sodium Chloride 0.9%) 1,000 mls @ 0 mls/hr XX .Q0M [facility] Last Infusion: 10/02/20 19:33 Dose: Infused Documented by: Norepinephrine Bitartrate 8 mg (/ Dextrose) 508 mls @ 0 mls/hr IV .Q0M [facility]; Protocol Last Titration: 10/08/20 00:04 Dose: 0 mcg/min, 0 mls/hr Documented by: Midazolam HCl 100 mg/ Sodium (Chloride) 100 mls @ 0 mls/hr IV .Q0M [facility]; Protocol Last Admin: 10/07/20 01:31 Dose: 2 mg/hr, 2 mls/hr Documented by: Rocuronium [place] 250 mg/ (Sodium Chloride) 250 mls @ 61.915 mls/hr IV .Q4H3M [facility] Last Infusion: 10/07/20 20:00 Dose: 0.3 mg/kg/hr, 31 mls/hr Documented by: Fentanyl 1,000 mcg/ Sodium (Chloride) 100 mls @ 0 mls/hr IV .Q0M [facility]; Protocol Last Titration: 10/08/20 04:30 Dose: 50 mcg/hr, 5 mls/hr Documented by: Amiodarone HCl 900 mg/Dextrose/ IV Miscellaneous Supplies 518 mls @ 0 mls/hr IV .Q0M [facility]; Protocol Last Titration: 10/07/20 22:00 Dose: 0.5 mg/min, 17.3 mls/hr Documented by: Imipenem/Cilastatin Sodium 500 (mg/ Sodium Chloride) 100 mls @ 200 mls/hr IV Q8H [facility]; Protocol Last Admin: 10/08/20 01:40 Dose: 200 mls/hr Documented by: Vancomycin/PEG/NADA/Lysine/Water (Vancocin) 1,500 mg in 300 mls @ 200 mls/hr IV Q18H [facility] Last Admin: 10/07/20 19:46 Dose: 200 mls/hr Documented by: Insulin Aspart (Insulin Aspart 100 Unit/1 Ml) 0 unit SUBCUT Q6H [facility]; Protocol Last Admin: 10/08/20 06:32 Dose: Not Given Documented by: Insulin Glargine (Insulin Glargine 100 Units/1 Ml) 10 unit SUBCUT BID [facility] Last Admin: 10/07/20 18:38 Dose: 10 unit Documented by: Zinc Gluconate (Zinc Gluconate 50 Mg Tablet) 50 mg PO DAILY [facility] Last Admin: 10/07/20 08:38 Dose: 50 mg Documented by: Vitals/I&O/Wt Last Vital Signs Temp 98.2 F 10/08/20 07:00 Pulse 94 10/08/20 07:00 Resp 22 H 10/08/20 06:12 BP 133/60 10/08/20 07:00 Pulse Ox 92 10/08/20 07:00 10/07/20 10/08/20 10/08/20 22:59 06:59 14:59 Intake Total 1263.05 / 1263.05 64.53 / 1327.58 Output Total 900 / 900 240 / 1140 Balance 363.05 / 363.05 -175.47 / 187.58 Weight last 48 hrs Weight 102.421 kg Weight 103.192 kg Physical Exam Narrative: EXAM NARRATIVE: intubated, sedated. labile temps levo @2. yesterday had a flutter w/ RVR- now improved vent -PC fio2 95%, PEEP 14, TV 500 heent- nc/at neck supple lungs b/l crackles and wheezes heart reg, no m/r/g appreciated abd soft +BS ext + b/l minimal leg edema neuro- sedated, paralyzed exam by RN- telehealth visit Urinary Catheter Management^: Noel: Cath Placed During This Visit: yes Reason for Continuing Indwelling Catheter: Accurate Measurement of Urinary Output in Critically Ill Patients Urinary Catheter Date of Insertion: 09/27/20 Urinary Catheter Time of Insertion: 20:00 Data : 10/08/20 03:25 10/08/20 03:25 Micro: Microbiology 10/02/20 15:45 Blood Culture - Final Blood Staphylococcus Auricularis Staphylococcus epidermidis 10/02/20 15:20 Blood Culture - Final Blood Staphylococcus Auricularis Staphylococcus epidermidis 10/06/20 04:30 Blood Culture - Preliminary Blood NEGATIVE TO DATE 10/06/20 04:30 Blood Culture - Preliminary Blood NEGATIVE TO DATE A&P Additional A&P Information 1. NADIYA - ischemic/septic ATN - He did not tolerate HD yesterday- became hypotensive and a flutter w/ RVR -VS improved- can attempt HD for acidosis- though he has a resp acidosis that has somewhat improved- we are not able to ventilate him Daily evaluation for dialysis Dose medications for GFR less than 15 on dialysis Strict ins and outs, avoid the usual nephrotoxic agents 2. Vent dependent respiratory failure Secondary to Covid pneumonitis plus superinfection with bacteria. Combination antibiotics, steroids, Abx FiO2 95%, PEEP 14 - not able to ventilate him Mgmt per ICU team 3. Lytes -improving 4. a flutter 5. staph pneumonia and bacteremia 6. hyperphosphatemia= binders w/ meals and HD - Very poor prognosis w/ COVID-19+ SARS PNA, staph bacteremia, hypercapneic resp acidosis, VDRF, poor MS, NADIYA- would discuss goals of care w/ pts family. He did not tolerate HD yesterday- if does not tolerate tolday, then we may not have more options Exam and interview performed with aid of bedside RN using telemedicine Time spent 30 min inc > 50% of time in face to face counseling Attestations Medical Necessity Statement*: nadiya, vdrf, covid-19 Time Spent in Patient Care: 16 - 35 minutes Coding Level of Care Code Acute Insulator Helper for [facility]
[2020-10-08 09:11] LABS: Glucose Point of Care 128 mg/dL (70-110)
[2020-10-08] MEDS: insulin glargine 100 units/1 mL 10 UNIT SUBCUT (09:36)
[2020-10-08] MEDS: zinc gluconate 50 mg Tablet PO (09:36)
--- NOTE | 2020-10-08 10:54 | PC.SOCIAL ---
IMM Updated Updated pt's on Pg 2 IMM. No questions voiced. Signed, dated, & timed copy in chart.
--- NOTE | 2020-10-08 13:11 | PC.NURSE ---
dialysis started at very slow rate per dialysis crew blood pressur 128/54 hr 91 sat 91 resp rate 22 has bis of 38 at this time
--- NOTE | 2020-10-08 13:13 | P.PN_ITS ---
Subjective Subjective: Interval history: 65-year-old male with a past medical history significant for hypertension, dyslipidemia and diabetes mellitus who was recently diagnosed with COVID-19 infection requiring admission to [facility] on 09/26 for hypoxic respiratory failure. patient was reported to have oxygen saturation in low 70s for which he was placed on 4 L however in the next 24 hours he progressively worsened. Noted to have increased work of breathing and high-flow O2 requirements. He was initiated on remdesivir of which she had received a loading dose on 09/26 and 2nd day dose n 09/27 per tranfering physician. Bravo was also empirically started on azithromycin and cefdinir. Chest x-ray had showed findings consistent with COVID-19 pneumonia. And laboratory workup in review appeared to be stable except D-dimer which was above 7. He was empirically started on Eliquis 5 mg oral twice daily. Due to progressive decline patient was transferred to [facility] viral ICU. Upon arrival patient was found to be hypoxic ( sats in 70s) and in respiratory distress. He was immediately placed on BiPAP with Fio2 of 100% after which he gradually improved. arterial blood gases were obtained which showed a pH of 7.42, pCO2 of 31.9, PO2 of 51.8 and bicarb 20.5. Laboratory workup on arrival was repeated which showed a WBC of 7.0, hemoglobin 12.8, hematocrit 38.9 and a p latelet count of 151. sodium 130, potassium 4.0, chloride 95, bicarb 20, BUN 13 and creatinine is 0.7. Lactic acid of 1.7. LFTs were within normal limits. Procalcitonin was 0.55. Shortly after arrival patient was noted to have respiratory failure with BiPAP requiring 100% FiO2. Due to this patient was intubated and placed on mechanical ventilation. Pulmonary medicine was consulted. Patient was noted to have severe adult respiratory distress syndrome likely from COVID-19 pneumonia. He was in itiated on deep sedation protocol and subsequently started on NBM, initially with nimbex however to do low supply this was changed to rocoronium. Due to high dose requirement of sedatives to maintain deep sedation ( RASS -4) while on NMB he was note to have hypotensive episodes. Central line was placed and he was started on levophed. Fio2 was weaned to 50% on 09/30. NMB was held. Unfortunately his hospitalization was complicated with hyperglycemia likely due to decadron. In order to achieve blood glucose goal of less than 180 he was placed on insulin ggt per protocol. Also found to have worsening acute renal failure with creatinine increasing from 0.7 to 3.2 Ua NA was noted to be less than 20. Intravascular volume depletion and thus was initiated on NS at 75cc/hr. Nephrology was consulted. Subjective 09/28 Patient was intubated on placed on vent. Started on sedation in addition to nim sussy. Was proned. Pulmonary consulted. 09/29 Overnight patient was changed from prone to supine. Remains stable. FiO2 was weaned to 90%. Continued on sedatives and paralytics. Did not have any fever episodes. 09/30 Patients Fio2 was weaned to 50%, Pao2/fio2 ratio was 138. His rocoronium was sto pped. Noted to have stable urinary output however creatinine had worsened. Low grade fevers. 10/01 Overnight patient was noted have increased FiO2 requirements from 50 to 70. patient was breathing above the vent at a rate of 22. he was resumed on NMB ggt and plan to be place in prone position. Transitioned off insulin gtt to SQ insulin. 10/02 Patient was noted to have Tmax of 102. Fever noted yesterday am. Was placed again in prone position last evening. Remained on sedation. urine output inc reasing. 10/03 Overnight patient remained stable However did have an episode of fever this morning. T-max of 102?. Also noted to be hyperglycemic. Given Lasix last night. noted > 3l u/o . 10/04 Fever curve improving 10/05 Clinically unchanged overnight. Remained on mechanical ventilation. Sedated. T-max 101.1. Was found to have hyperkalemia treated with Kayexalate and calcium gluconate. 10/06 Patient was noted to have worsening hypoxia overnight, refractory hyperkalemia requiring an HD catheter placement in am. Patient was then transferred to MICU. Continue to have fevers. Dialysis catheter was placed in a.m.. 10/07 Overnight patient was transition to MICU. Patient was initiated on dialysis. Continued on deep sedation with propofol, fentanyl and Versed. Continued on Levophed. This morning had brief run of SVT. Resolve with vagal stimulation. Continues to have fever with a T-max of 101?. 10/08 Continued on amiodarone gtt Medications: Reviewed: Yes Medication Review Details: Current Medications Acetaminophen (Acetaminophen 325 Mg Tablet) 650 mg PO Q6H PRN PRN Reason: MILD PAIN Last Admin: 10/05/20 05:01 Dose: 650 mg Documented by: Albuterol/Ipratropium (Ipratropium-Albuterol 3 Ml Neb) 3 ml INHALATION Q4H.RESPIRATORY [facility] Last Admin: 10/05/20 04:20 Dose: 3 ml Documented by: Artificial Tears (Artificial Tears Op Soln 15 Ml Btl) 1 drop EYE-BOTH Q4H [facility] Last Admin: 10/05/20 02:51 Dose: 1 drop Documented by: Dexamethasone (Dexamethasone 4 Mg/Ml Inj) 6 mg IVP Q24H [facility] Stop: 10/07/20 16:29 Last Admin: 10/04/20 16:42 Dose: 6 mg Documented by: Dextrose (Dextrose 50% Syringe 50 Ml) 25 ml IVP ONCE PRN; Protocol PRN Reason: hypoglycemia protocol Dextrose (Dextrose 50% Syringe 50 Ml) 50 ml IVP PRN PRN; Protocol PRN Reason: hypoglycemia protocol Enoxaparin Sodium (Enoxaparin 40 Mg/0.4 Ml Syringe) 40 mg SUBCUT Q24H [facility] Last Admin: 10/04/20 21:14 Dose: 40 mg Documented by: Famotidine (Famotidine 20 Mg/2 Ml Inj) 20 mg IVP Q12H [facility] Last Admin: 10/05/20 02:40 Dose: 20 mg Documented by: Glucagon (Glucagon 1 Mg/Ml Inj 1 Ml) 1 mg IM ONCE PRN; Protocol PRN Reason: Adult Acute Hypoglycemia Prot. Dextrose (D5w) 500 mls @ 100 mls/hr IV ONCE PRN; Protocol PRN Reason: Adult Acute Hypoglycemia Prot Propofol (Diprivan) 1,000 mg in 100 mls @ 0 mls/hr IV .Q0M [facility]; Protocol Last Admin: 10/05/20 05:02 Dose: 50 mcg/kg/min, 29 mls/hr Documented by: Norepinephrine Bitartrate 4 mg (/ Dextrose) 254 mls @ 0 mls/hr IV .Q0M [facility]; Protocol Last Titration: 10/05/20 02:44 Dose: 0 mcg/min, 0 mls/hr Documented by: Sodium Chloride (Sodium Chloride 0.9%) 1,000 mls @ 0 mls/hr XX .Q0M [facility] Last Infusion: 10/02/20 19:33 Dose: Infused Documented by: Dexmedetomidine HCl 400 mcg/ (Sodium Chloride) 104 mls @ 0 mls/hr IV .Q0M [facility]; Protocol Last Titration: 10/05/20 02:44 Dose: 0.7 mcg/kg/hr, 17.6 mls/hr Documented by: Fentanyl 1,000 mcg/ Sodium (Chloride) 100 mls @ 0 mls/hr IV .Q0M [facility]; Protocol Last Admin: 10/04/20 23:30 Dose: 125 mcg/hr, 12.5 mls/hr Documented by: Vancomycin/PEG/NADA/Lysine/Water (Vancocin) 1,500 mg in 300 mls @ 200 mls/hr IV Q24H [facility] Last Infusion: 10/04/20 19:41 Dose: Infused Documented by: Imipenem/Cilastatin Sodium 500 (mg/ Sodium Chloride) 100 mls @ 200 mls/hr IV Q8H [facility]; Protocol Last Infusion: 10/05/20 02:43 Dose: 0 mls/hr Documented by: Sodium Chloride (Sodium Chloride 0.45%) 1,000 mls @ 100 mls/hr IV .Q10H [facility] Last Admin: 10/05/20 02:40 Dose: 100 mls/hr Documented by: Insulin Aspart (Insulin Aspart 100 Unit/1 Ml) 0 unit SUBCUT Q4H [facility]; Protocol Last Admin: 10/05/20 02:40 Dose: 4 unit Documented by: Insulin Glargine (Insulin Glargine 100 Units/1 Ml) 10 unit SUBCUT BID [facility] Last Admin: 10/04/20 17:38 Dose: 10 unit Documented by: Midazolam HCl (Midazolam 1 Mg/Ml Inj 2 Ml) 2 mg IVP Q2H PRN PRN Reason: SEDATION Last Admin: 10/04/20 10:53 Dose: 2 mg Documented by: Zinc Gluconate (Zinc Gluconate 50 Mg Tablet) 50 mg PO DAILY [facility] Last Admin: 10/04/20 09:04 Dose: 50 mg Documented by: Vitals/I&O/Wt Last Vital Signs Temp 97.7 F 10/08/20 18:00 Pulse 85 10/08/20 19:49 Resp 24 H 10/08/20 19:50 BP 159/82 10/08/20 18:00 Pulse Ox 92 10/08/20 19:49 10/08/20 10/08/20 10/08/20 06:59 14:59 22:59 Intake Total 307.58 / 1870.63 52 / 52 Output Total 240 / 1140 500 / 500 Balance 67.58 / 730.63 52 / 52 -500 / -448 Weight last 48 hrs Weight 102.421 kg Weight 103.192 kg Physical Exam Narrative: EXAM NARRATIVE: General - Intubated on MV HEENT- ET tube Chest - vented CVS- sinus tachycardia Abdomen- appeared non-distended Extremities- no edema Urinary Catheter Management^: Noel: Cath Placed During This Visit: yes Reason for Continuing Indwelling Catheter: Accurate Measurement of Urinary Output in Critically Ill Patients Urinary Catheter Date of Insertion: 09/27/20 Urinary Catheter Time of Insertion: 20:00 Data : 10/08/20 03:25 10/08/20 03:25 Micro: Microbiology 10/03/20 07:50 Blood Culture - Final Blood Staphylococcus epidermidis 10/03/20 07:55 Blood Culture - Final Blood Staphylococcus epidermidis A&P Assessment and plan (1) Acute respiratory failure with hypoxia: Status: Acute (2) Pneumonia due to COVID-19 virus: Status: Acute (3) Dyslipidemia: Status: Acute (4) Diabetes mellitus: Status: Acute Qualifiers: Diabetes mellitus type: type 2 Diabetes mellitus chcf insulin use: unspecified chcf insulin use status Diabetes mellitus complication status: with other specified complication Qualified Code(s): E11.69 - Type 2 diabetes mellitus with other specified complication (5) Hypertension: Status: Acute Qualifiers: Hypertension type: unspecified Qualified Code(s): I10 - Essential (primary) hypertension Atrial Flutter 2:1 now NSR - Continue amidarone gtt - ECHO noted - Monitor lytes Acute respiratory distress syndrome with Hypoxemia - Etiology multi-factorial. COVID-19 with superimposed Staphlococcus aureus pneumonia ( see #2) - Intubated and placed on mechanical vent on 09/27 - 09/28 - Chest x-ray -> bilateral pulmonary consolidation 10/04 - B/L pulmonary infiltrates with minimal improvement. No Ptx - Ferritin 1976 - > 1256 -> 1840 - LDH : 439 -> 437 -> 468 - CRP 188.8 -> 354.6 - Completed Remdesivir x 5 days - Completed Proaning x 3 days - Decadron 6 mg IV daily - Vent: PC-AC, RR 22, PIP of 30, iTime 1.1, PEEP of 14, Fio2 of 90 percent. - Patient - RR 33, M.V of 12.3, Lung compliance 36, Airway resistance 6 - 10/07/19 - ABG 7.19, PCO2 62.5, PO2 80.0, HCO3 of 23.6 - Continue Deep sedation: - Propofol, Versed, Fentanyl per protocol - RASS Goal - negative 4 to 5 - Rocuronium ggt per protocol with BIS,TOF monitoring ( 2-4 twitches/4 ) Q1hr checks post changes to drip ( - Repeat Chest x-ray today - Repeat ABG in AM - Check inflammatory markers in AM ( Ferritin, CRP, D-dimer ) Septic shock due to Staph. Aureus Pneumonia with possible staph epidermidis bacteremia - 10/02 - Sputum culture - MSSA - 10/02 - Blood culture - > Staphylococcus aurecularis/epidermidis 10/03 - Blood culture -> Coagulase negative staphylococcus x 2 - 10/15 - Blood culture x 2 - NGTD - Continue Levophed ggt - Maintain MAP > 65 - Vancomycin pharmacy to dose ( 10/03 ) - Primixin 500 mg IV q8hr ( 10/03 ) - Repeat sputum culture x 1 today - Repeat Blx in am - Check Pneumocystitis DFA/QT-PCR - Check Lactic acid in am - Continue current antibiotics regimen - 10/07- Tmax 101.8 - Tylenol PRN for fever - May consider ID consult Acute kidney failure with refractory Hyperkalemia - Creatinine on admit 0.7 ( 09/27 ) - Increased to 09/29 - 2.2 -> 1.5 -> 2.1 - K 6.7 -> 5.7 - Nephrology on board - Temporary femoral HD catheter placed - First HD on 10/06 - Plan for next HD on 10/08 - Noel in place - Monitor Urine output ( 0.82 ml/kg/hr) Rhabdomyolyis - 2/2 paralytic / Propofol - 2666 - > 1261 -> 708 - Repeat CPK in am - Current on HD Uncontrolled Diabetes Mellitus with Hyperglycemia - On decadron - BS rage stable - Goal < 180 - Lantus 10 units BID - Sliding scale insulin coverage - Blood sugar checks q4h FEN - OG in place - Decrease Fh20 flushes - 100ml q6hr - Tube feeding GI ppx - Pepcid 20 mg IV BID DVT ppx - Lovenox 40 mg SQ daily Disposition: - Patient remains in critical condition with unfortunately poor prognosis. D/w condition with . Adivsed to continue current management with all interventions including HD. In the event of cardiac arrest advised DNR- no CPR. Code status changed to limited. Attestations Medical Necessity Statement*: Remains critical on vent will need to continue hospitalization Time Spent in Patient Care: Greater than 35 minutes (>than 50% of time spe nt in counselling and/or direct pt care on unit) . Critical Care Time: Critical Care Time (min): 45 Coding Level of Care Code Acute Undercar Specialist for [facility] Fwd Diagnoses Acute respiratory failure with hypoxia J96.01 Pneumonia due to COVID-19 virus U07.1; J12.89 Dyslipidemia E78.5 Diabetes mellitus E11.69 Diabetes mellitus type: type 2 Diabetes mellitus adjunct faculty for medical terminology insulin use: unspecified adjunct faculty for medical terminology insulin use status Diabetes mellitus complication status: with other specified complication Hypertension I10 Hypertension type: unspecified
--- NOTE | 2020-10-08 13:54 | PC.NURSE ---
continue dialysis slow .. monitor vs at this time at bedside monitor close
--- NOTE | 2020-10-08 14:22 | PC.NURSE ---
blood pressure down 100/52 slowed removable fluid per dialysis
[2020-10-08] MEDS: vancomycin 1,500 MG/300 ML PIGGYBACK 200 MG IV (16:01)
--- NOTE | 2020-10-08 17:49 | PC.NURSE ---
called blood sugar to hold pm insulin
[2020-10-08] MEDS: enoxaparin 40 mg/0.4 mL Syringe SUBCUT (20:19)
[2020-10-08] MEDS: propofol 1,000 MG/100 ML INJ 14.5 MG IV (20:20)
--- NOTE | 2020-10-08 23:31 | PC.NURSE ---
Addendum entered by Rose Contreras RN 10/09/20 05:22: Witnessed waste of Rocuronium gtt. Original Note: wasted patient's Rocuronium gtt, 200mg. Witnessed via Rose Contreras RN
[2020-10-08 23:53] LABS: ABG PCO2 55.8 mmHg (35-45); ABG PH Result 7.24 (7.35-7.45); Arterial Blood Gas Hematocrit 25.2 % (42-52); Base Excess ABG -3.6 mmol/L (-2.0-2.0); Blood Gas Sample Type Arterial; HCO3 ABG 23.9 mmol/L (22-26); Oxygen Device VENT; PO2 ABG 66.5 mmHg (80.0-100.0)
[2020-10-08 23:57] LABS: Glucose Point of Care 123 mg/dL (70-110)
[2020-10-09] VITALS (63 sets, daily range): BP systolic 107–144; BP diastolic 53–67; PULSE 77–90; RESP 22–33; TEMP 36.4–36.7; O2SAT 84–95
[2020-10-09] MEDS: famotidine 20 mg/2 mL INJ IVP ×2 (00:22→12:57)
[2020-10-09] MEDS: artificial tears Op Soln 15 mL Btl 1 DROP EYE-BOTH ×6 (02:25→22:22)
[2020-10-09] MEDS: propofol 1,000 MG/100 ML INJ 29 MG IV ×6 (02:34→20:00)
[2020-10-09] MEDS: ipratropium-albuterol 3 mL Neb INHALATION ×6 (04:00→23:28)
[2020-10-09 04:44] LABS: Glucose Point of Care 148 mg/dL (70-110)
[2020-10-09 05:01] LABS: ABG PH Result 7.22 (7.35-7.45); Arterial Blood Gas Hematocrit 44.7 % (42-52); Blood Gas Sample Type Arterial; HCO3 ABG 23.8 mmol/L (22-26); Oxygen Device VENT; PO2 ABG 75.9 mmHg (80.0-100.0)
[2020-10-09 05:22] LABS: Lactate (Lactic Acid level) 1.2 mmol/L (0.5-2.2)
[2020-10-09 05:54] LABS: Alanine Aminotransferase 14 U/L (0-41); Albumin Level 1.8 g/dL (3.5-5.2); Alkaline Phosphatase 94 IU/L (40-130); Anion Gap 20.5 (5-19); Aspartate Amino Transferase 28 U/L (0-40); Blood Urea Nitrogen 74 mg/dL (8-23); Carbon Dioxide 22 mmol/L (22-29); Chloride 100 mmol/L (98-107); Globulin 2.4 g/dL (1.3-4.6); Glomerular Filtration Rate 19.7 mL/min (90-130); Glucose 143 mg/dL (65-115); Magnesium 2.3 mg/dL (1.7-2.3); Osmolality Calculated 310 mOsm/kg (285-295); Phosphorus 6.6 mg/dL (2.5-4.5); Potassium 4.5 mmol/L (3.5-5.1); Sodium 138 mmol/L (136-145); Total Bilirubin 0.4 mg/dL (0.15-1.2); Total Protein 4.2 g/dL (6.6-8.7)
[2020-10-09] MEDS: zinc gluconate 50 mg Tablet PO (08:28)
[2020-10-09] MEDS: insulin glargine 100 units/1 mL 10 UNIT SUBCUT ×2 (08:29→18:16)
[2020-10-09] MEDS: vancomycin 1,500 MG/300 ML PIGGYBACK 200 MG IV (08:30)
--- NOTE | 2020-10-09 09:24 | P.PN_ITS ---
Subjective Subjective: Interval history: remains in ICU intubated, pressers, not responsive, off of paralytics Medications: Reviewed: Yes Medication Review Details: Current Medications Acetaminophen (Acetaminophen 325 Mg Tablet) 650 mg PO Q6H PRN PRN Reason: MILD PAIN Last Admin: 10/07/20 03:00 Dose: 650 mg Documented by: Adenosine (Adenosine 3 Mg/Ml Sdv 2ml) 6 mg IVP ONCE PRN PRN Reason: heart rate Last Admin: 10/07/20 16:18 Dose: 6 mg Documented by: Adenosine (Adenosine 3 Mg/Ml Sdv 2ml) 12 mg IVP ONCE PRN PRN Reason: PRN Albuterol/Ipratropium (Ipratropium-Albuterol 3 Ml Neb) 3 ml INHALATION Q4H.RESPIRATORY [facility] Last Admin: 10/09/20 08:08 Dose: 3 ml Documented by: Artificial Tears (Artificial Tears Op Soln 15 Ml Btl) 1 drop EYE-BOTH Q4H [facility] Last Admin: 10/09/20 06:37 Dose: 1 drop Documented by: Dextrose (Dextrose 50% Syringe 50 Ml) 25 ml IVP ONCE PRN; Protocol PRN Reason: hypoglycemia protocol Dextrose (Dextrose 50% Syringe 50 Ml) 50 ml IVP PRN PRN; Protocol PRN Reason: hypoglycemia protocol Enoxaparin Sodium (Enoxaparin 40 Mg/0.4 Ml Syringe) 40 mg SUBCUT Q24H [facility] Last Admin: 10/08/20 20:19 Dose: 40 mg Documented by: Famotidine (Famotidine 20 Mg/2 Ml Inj) 20 mg IVP Q12H [facility] Last Admin: 10/09/20 00:22 Dose: 20 mg Documented by: Glucagon (Glucagon 1 Mg/Ml Inj 1 Ml) 1 mg IM ONCE PRN; Protocol PRN Reason: Adult Acute Hypoglycemia Prot. Dextrose (D5w) 500 mls @ 100 mls/hr IV ONCE PRN; Protocol PRN Reason: Adult Acute Hypoglycemia Prot Propofol (Diprivan) 1,000 mg in 100 mls @ 0 mls/hr IV .Q0M [facility]; Protocol Last Admin: 10/09/20 09:20 Dose: 50 mcg/kg/min, 29 mls/hr Documented by: Sodium Chloride (Sodium Chloride 0.9%) 1,000 mls @ 0 mls/hr XX .Q0M [facility] Last Infusion: 10/02/20 19:33 Dose: Infused Documented by: Norepinephrine Bitartrate 8 mg (/ Dextrose) 508 mls @ 0 mls/hr IV .Q0M [facility]; Protocol Last Titration: 10/09/20 06:37 Dose: 8 mcg/min, 30.5 mls/hr Documented by: Midazolam HCl 100 mg/ Sodium (Chloride) 100 mls @ 0 mls/hr IV .Q0M [facility]; Protocol Last Titration: 10/09/20 02:29 Dose: 8 mg/hr, 8 mls/hr Documented by: Fentanyl 1,000 mcg/ Sodium (Chloride) 100 mls @ 0 mls/hr IV .Q0M [facility]; Protocol Last Admin: 10/09/20 09:20 Dose: 125 mcg/hr, 12.5 mls/hr Documented by: Amiodarone HCl 900 mg/Dextrose/ IV Miscellaneous Supplies 518 mls @ 0 mls/hr IV .Q0M [facility]; Protocol Last Titration: 10/07/20 22:00 Dose: 0.5 mg/min, 17.3 mls/hr Documented by: Vancomycin/PEG/NADA/Lysine/Water (Vancocin) 1,500 mg in 300 mls @ 200 mls/hr IV Q18H [facility] Last Admin: 10/09/20 08:30 Dose: 200 mls/hr Documented by: Albumin Human (Albumin) 12.5 gm in 50 mls @ 60 mls/hr IV PRN PRN PRN Reason: Hypotension and/or symptomatic Imipenem/Cilastatin Sodium 250 (mg/ Sodium Chloride) 100 mls @ 200 mls/hr IV Q6H [facility]; Protocol Last Admin: 10/09/20 04:06 Dose: 200 mls/hr Documented by: Insulin Aspart (Insulin Aspart 100 Unit/1 Ml) 0 unit SUBCUT Q6H [facility]; Protocol Last Admin: 10/09/20 05:15 Dose: 3 unit Documented by: Insulin Glargine (Insulin Glargine 100 Units/1 Ml) 10 unit SUBCUT BID [facility] Last Admin: 10/09/20 08:29 Dose: 10 unit Documented by: Zinc Gluconate (Zinc Gluconate 50 Mg Tablet) 50 mg PO DAILY [facility] Last Admin: 10/09/20 08:28 Dose: 50 mg Documented by: Vitals/I&O/Wt Last Vital Signs Temp 97.7 F 10/09/20 04:00 Pulse 84 10/09/20 09:00 Resp 22 H 10/09/20 08:24 BP 122/58 10/09/20 09:00 Pulse Ox 89 L 10/09/20 09:00 10/08/20 10/09/20 10/09/20 22:59 06:59 14:59 Intake Total 660.033 / 712.033 684.531 / 1396.564 184.500 / 184.500 Output Total 500 / 500 375 / 875 Balance 160.033 / 212.033 309.531 / 521.564 184.500 / 184.500 Weight last 48 hrs Weight 102.693 kg Weight 102.421 kg Physical Exam Narrative: EXAM NARRATIVE: intubated, sedated. labile temps levo @8. yesterday had a flutter w/ RVR- now improved vent -PC fio2 90%, PEEP 14, TV 500 heent- nc/at neck supple lungs b/l crackles and wheezes heart reg, no m/r/g appreciated abd soft +BS ext + b/l minimal leg edema neuro- sedated, per nurse- no gag or corneal reflex. no cough exam by RN- telehealth visit Urinary Catheter Management^: Noel: Cath Placed During This Visit: yes Reason for Continuing Indwelling Catheter: Accurate Measurement of Urinary Output in Critically Ill Patients Urinary Catheter Date of Insertion: 09/27/20 Urinary Catheter Time of Insertion: 20:00 Data : 10/08/20 03:25 10/09/20 04:40 Micro: Microbiology 10/03/20 07:50 Blood Culture - Final Blood Staphylococcus epidermidis 10/03/20 07:55 Blood Culture - Final Blood Staphylococcus epidermidis A&P Additional A&P Information 1. NADIYA - ischemic/septic ATN - s/p HD 10/06, 10/07, and 10/08. -bun 74, k 4.5 Dose medications for GFR less than 15 on dialysis Strict ins and outs, avoid the usual nephrotoxic agents 2. Vent dependent respiratory failure Secondary to Covid pneumonitis plus superinfection with bacteria. Combination antibiotics, steroids, Abx FiO2 90%, PEEP 14 - not able to ventilate him Mgmt per ICU team WBC increasing -pt remains w/ hypercapneic resp acidosis even on vent 3. Lytes -improving 4. a flutter 5. staph pneumonia and bacteremia 6. hyperphosphatemia= binders w/ meals and HD - Very poor prognosis w/ COVID-19+ SARS PNA, staph bacteremia, hypercapneic resp acidosis, VDRF, poor MS- no corneal, gag reflexes, ands NADIYA- His mortality is over 90%. will hold dialysis for now, and would discuss goals of care w/ pts family. -if family still wants dialysis then repeat ABG this afternoon to make further decisions. Exam and interview performed with aid of bedside RN using telemedicine Time spent 30 min inc > 50% of time in face to face counseling Attestations Medical Necessity Statement*: VDRF, NADIYA, multi-organ failure COVID-19 Time Spent in Patient Care: 16 - 35 minutes Coding Level of Care Code Acute Sign Erector And Repairer for [facility]
--- NOTE | 2020-10-09 09:30 | PC.CHAP ---
Pastoral Care Encounter/Spiritual Assessment Type of Contact [] Declined assignment editor visit [] Patient/Family/Request visit [] Outpatient visit [] Follow-up visit [] Physician referral [] Code/Alert [] Routine visit [] Staff referral [] Actively dying [] Patient sleeping [] Family support [] [] Out of room [] Palliative care [] [] Receiving care in room [] Pre-surgical visit [] Trauma [] Long length of stay [x] ICU visit [] Other: Relational/Emotional Strength [] Patient feels connected with others/family/visitors/staff [] Distress [] Loneliness/isolation [] Abandonment Spirituality of Patient [] Person of Beatriz [] Attends Oriental Orthodox of their Beatriz [] Believes in Prayer [] Reads Bible or Restorationist materials [] There are Spiritual issues to be addressed Recovery Assistant Interventions [x] Prayer [] Active listening [] Non-anxious presence [] Spiritual/emotional support [] Crisis/trauma care [] Spiritual counseling [] Bereavement support [] Provided bereavement packet [] Provided Bible/devotional materials [] Provided toy/stuffed animal, coloring book to patient or family member [] Provided Communion [] Anointing/Foreman [] Salvation [x] Completed spiritual assessment [] Other: Impact on Illness or Injury [] Angry [] Fearful [] Anxious [] Often cries [] Exhaustion [] Unable to work [] Unable to attend mormon [] Unable to walk/stand [] Unable to read [] Unable to drive [] Unable to eat/drink [] Unable to sleep [] Unable to be with family [] Patient intubated [] Other: Summary Time spent with patient
[2020-10-09 11:18] LABS: ABG PCO2 48.6 mmHg (35-45); ABG PH Result 7.22 (7.35-7.45); Alveolar-Arterial Oxygen Gradi 66.4 mmHg (5-10); Arterial Blood Gas Hematocrit 23.1 % (42-52); Base Excess ABG -7.5 mmol/L (-2.0-2.0); Blood Gas Allen Test Pos; Blood Gas Operator Identificat BD; Blood Gas Sample Site ALINE; Blood Gas Sample Type Arterial; Carboxyhemoglobin 0.9 %THgb (0.4-20.1); HCO3 ABG 19.8 mmol/L (22-26); HGB O2 Sat 88.1 % (95-100); Methemoglobin 1.4 % (0.4-1.5); Oxygen Device VENT; Oxygen Saturation ABG 90.1; PO2 ABG 71.6 mmHg (80.0-100.0); Potassium Level - ABG 3.6 mmol/L (3.5-5.0); Total Hemoglobin 7.5 g/dL (14-18)
[2020-10-09 11:36] LABS: Glucose Point of Care 114 mg/dL (70-110)
[2020-10-09 11:36] LABS: Glucose Point of Care 119 mg/dL (70-110)
[2020-10-09 11:36] LABS: Glucose Point of Care 99 mg/dL (70-110)
[2020-10-09 11:39] LABS: Glucose Point of Care 181 mg/dL (70-110)
[2020-10-09 12:53] LABS: Alanine Aminotransferase 19 U/L (0-41); Albumin Level 1.8 g/dL (3.5-5.2); Alkaline Phosphatase 115 IU/L (40-130); Anion Gap 20.1 (5-19); Aspartate Amino Transferase 36 U/L (0-40); Blood Urea Nitrogen 79 mg/dL (8-23); Calcium 7.3 mg/dL (8.5-10.5); Carbon Dioxide 22 mmol/L (22-29); Chloride 98 mmol/L (98-107); Globulin 3.3 g/dL (1.3-4.6); Glomerular Filtration Rate 18.3 mL/min (90-130); Glucose 192 mg/dL (65-115); Osmolality Calculated 311 mOsm/kg (285-295); Potassium 4.1 mmol/L (3.5-5.1); Sodium 136 mmol/L (136-145); Total Bilirubin 0.5 mg/dL (0.15-1.2); Total Protein 5.1 g/dL (6.6-8.7)
[2020-10-09] MEDS: heparin, porcine 1,000 unit/mL INJ 10 mL 1000 UNIT HE (18:15)
[2020-10-09 18:31] LABS: Glucose Point of Care 163 mg/dL (70-110)
--- NOTE | 2020-10-09 18:49 | PC.NURSE ---
Tube feeding held, residual 220.
[2020-10-09] MEDS: albumin 12.5 GM/50 ML VIAL IV (19:12)
[2020-10-09] MEDS: norepinephrine 8 MG in dextrose 5 % 500 ML 38.1 MG IV (19:21)
[2020-10-09 23:32] LABS: Glucose Point of Care 143 mg/dL (70-110)
[2020-10-10] VITALS (45 sets, daily range): BP systolic 0–165; BP diastolic 0–74; PULSE 0–89; RESP 0–31; TEMP 36.4–36.5; O2SAT 0–93
[2020-10-10] MEDS: propofol 1,000 MG/100 ML INJ 29 MG IV ×5 (00:06→13:31)
[2020-10-10] MEDS: famotidine 20 mg/2 mL INJ IVP (00:31)
[2020-10-10 01:58] LABS: Vancomycin Trough 38.6 ug/mL (10-15)
[2020-10-10] MEDS: artificial tears Op Soln 15 mL Btl 1 DROP EYE-BOTH ×2 (03:19→06:17)
[2020-10-10] MEDS: ipratropium-albuterol 3 mL Neb INHALATION ×3 (03:22→11:22)
[2020-10-10 03:47] LABS: ABG PCO2 59.9 mmHg (35-45); Arterial Blood Gas Hematocrit 22.2 % (42-52); Base Excess ABG -8.5 mmol/L (-2.0-2.0); Blood Gas Sample Site Not specified; Blood Gas Sample Type Arterial; HCO3 ABG 20.2 mmol/L (22-26); PO2 ABG 83.4 mmHg (80.0-100.0)
[2020-10-10 03:49] LABS: Blood Gas Operator Identificat JB; Oxygen Device VENT
[2020-10-10 03:51] LABS: ABG PH Result 7.14 (7.35-7.45)
[2020-10-10 04:04] LABS: Hematocrit 25.6 % (42.0-52.0); Hemoglobin 7.6 g/dL (11.7-16.6); Mean Corpuscular HGB Conc 29.7 g/dL (30.0-36.0); Mean Corpuscular Volume 94.5 fL (80-94); Mean Platelet Volume 11.6 fL (7.4-10.4); Platelet Count 191 10^3/cmm (130-400); Red Blood Count 2.71 10^6/uL (4.1-5.3); Red Cell Distribution Width 15.1 % (12.1-15.1); White Blood Count 2.9 10^3/uL (4.0-10.0)
[2020-10-10 04:44] LABS: Procalcitonin 6.24 ng/mL (0-0.5)
[2020-10-10 04:49] LABS: Alanine Aminotransferase 17 U/L (0-41); Alkaline Phosphatase 115 IU/L (40-130); Anion Gap 23.8 (5-19); Aspartate Amino Transferase 41 U/L (0-40); Calcium 7.4 mg/dL (8.5-10.5); Carbon Dioxide 19 mmol/L (22-29); Chloride 95 mmol/L (98-107); Globulin 3.5 g/dL (1.3-4.6); Glomerular Filtration Rate 13.6 mL/min (90-130); Glucose 153 mg/dL (65-115); Magnesium 2.4 mg/dL (1.7-2.3); Osmolality Calculated 305 mOsm/kg (285-295); Potassium 4.8 mmol/L (3.5-5.1); Sodium 133 mmol/L (136-145); Total Bilirubin 0.6 mg/dL (0.15-1.2); Total Protein 5.5 g/dL (6.6-8.7)
--- NOTE | 2020-10-10 05:30 | XRR_ITS ---
PROCEDURE INFORMATION: Exam: XR Chest, 1 View Exam date and time: 10/10/2020 6:19 AM Age: 65 years old Clinical indication: Device placement; Ett placement (vent status); Other: Hypoxia TECHNIQUE: Imaging protocol: XR of the chest Views: 1 view. COMPARISON: CR (CHEST, ) 10/07/2020 2:20 PM FINDINGS: Tubes, catheters and devices: The endotracheal tube is above the level of the tiburcio. Central venous catheter via the right jugular approach with the tip projecting over the superior vena cava. nasogastric tube extends below the diaphragm although the location of the tip not identified as it is outside of the [id number]. Lungs: Emphysema patchy interstitial and alveolar airspace disease in the perihilar regions left greater than right. Airspace consolidation lung bases. Subpulmonic effusion more conspicuous on the right. Edema and or pneumonia.Covid within the differential diagnosis. Pleural space: See Lungs finding. Heart/Mediastinum: Unremarkable. No cardiomegaly. Bones/joints: Unremarkable. XR/XR chest 1V portable [id number] IMPRESSION: Patchy interstitial and alveolar airspace disease in the perihilar regions left greater than right. Airspace consolidation lung bases. Subpulmonic effusion more conspicuous on the right. Edema and or pneumonia. Minimal change.
--- NOTE | 2020-10-10 05:42 | PM.EVENT ---
Event Note Event Note: Noted hypotensive, requiring 22 mcg of Levophed, hypoxic, on 100% FiO2. Partial hemodialysis yesterday with some fluid removed, although not at goal with difficulties due to clotting. Has put out 200 mL of urine. Will give Lasix 80 mg IV x1. Due to hypotension add vasopressin. Previously on Decadron. Initiate hydrocortisone 100 mg twice daily due to persistent septic shock. Please reassess. Check chest x-ray. Consider repeat hemodialysis, although this may be difficult with low blood pressures.
[2020-10-10 06:15] LABS: Blood Urea Nitrogen 84 mg/dL (8-23); Phosphorus 8.8 mg/dL (2.5-4.5)
[2020-10-10] MEDS: FUROsemide 10 mg/mL SDV 10mL 80 MG IVP (06:17)
[2020-10-10] MEDS: hydrocortisone 100 mg/2 mL SDV IVP (06:17)
[2020-10-10 07:05] LABS: Slide Review Slide Review Perform
[2020-10-10 07:09] LABS: Absolute Eosinophils 0.1 10^3/cmm (0.0-0.7); Absolute Segmented Neutrophil 1.2 10/cmm (1.6-7.1); Band Neutrophils Absolute 0.8 10^3/cmm (0.0-1.2); Eosinophils 5 %; Lymphocytes 9 %; Monocytes Absolute 0.4 10^3/cmm (0.1-0.6); Segmented Neutrophils 42 %; Total Cells Counted 100 (0-100)
[2020-10-10 07:10] LABS: Platelet Estimate Normal (Normal); Polychromasia 1+
--- NOTE | 2020-10-10 07:13 | PM.PN ---
Subjective Subjective: Interval history: sedated, intubated, pressers Medications: Reviewed: Yes Medication Review Details: Current Medications Acetaminophen (Acetaminophen 325 Mg Tablet) 650 mg PO Q6H PRN PRN Reason: MILD PAIN Last Admin: 10/07/20 03:00 Dose: 650 mg Documented by: Adenosine (Adenosine 3 Mg/Ml Sdv 2ml) 6 mg IVP ONCE PRN PRN Reason: heart rate Last Admin: 10/07/20 16:18 Dose: 6 mg Documented by: Adenosine (Adenosine 3 Mg/Ml Sdv 2ml) 12 mg IVP ONCE PRN PRN Reason: PRN Albuterol/Ipratropium (Ipratropium-Albuterol 3 Ml Neb) 3 ml INHALATION Q4H.RESPIRATORY [facility] Last Admin: 10/10/20 03:22 Dose: 3 ml Documented by: Artificial Tears (Artificial Tears Op Soln 15 Ml Btl) 1 drop EYE-BOTH Q4H [facility] Last Admin: 10/10/20 06:17 Dose: 1 drop Documented by: Dextrose (Dextrose 50% Syringe 50 Ml) 25 ml IVP ONCE PRN; Protocol PRN Reason: hypoglycemia protocol Dextrose (Dextrose 50% Syringe 50 Ml) 50 ml IVP PRN PRN; Protocol PRN Reason: hypoglycemia protocol Famotidine (Famotidine 20 Mg/2 Ml Inj) 20 mg IVP Q12H [facility] Last Admin: 10/10/20 00:31 Dose: 20 mg Documented by: Glucagon (Glucagon 1 Mg/Ml Inj 1 Ml) 1 mg IM ONCE PRN; Protocol PRN Reason: Adult Acute Hypoglycemia Prot. Hydrocortisone Sodium Succinate (Hydrocortisone 100 Mg/2 Ml Sdv) 100 mg IVP Q12H [facility] Last Admin: 10/10/20 06:17 Dose: 100 mg Documented by: Dextrose (D5w) 500 mls @ 100 mls/hr IV ONCE PRN; Protocol PRN Reason: Adult Acute Hypoglycemia Prot Propofol (Diprivan) 1,000 mg in 100 mls @ 0 mls/hr IV .Q0M [facility]; Protocol Last Admin: 10/10/20 06:10 Dose: 50 mcg/kg/min, 29 mls/hr Documented by: Sodium Chloride (Sodium Chloride 0.9%) 1,000 mls @ 0 mls/hr XX .Q0M [facility] Last Infusion: 10/02/20 19:33 Dose: Infused Documented by: Norepinephrine Bitartrate 8 mg (/ Dextrose) 508 mls @ 0 mls/hr IV .Q0M [facility]; Protocol Last Titration: 10/10/20 07:02 Dose: Infused Documented by: Midazolam HCl 100 mg/ Sodium (Chloride) 100 mls @ 0 mls/hr IV .Q0M [facility]; Protocol Last Admin: 10/10/20 06:10 Dose: 8 mg/hr, 8 mls/hr Documented by: Fentanyl 1,000 mcg/ Sodium (Chloride) 100 mls @ 0 mls/hr IV .Q0M [facility]; Protocol Last Admin: 10/10/20 06:10 Dose: 125 mcg/hr, 12.5 mls/hr Documented by: Amiodarone HCl 900 mg/Dextrose/ IV Miscellaneous Supplies 518 mls @ 0 mls/hr IV .Q0M [facility]; Protocol Last Admin: 10/10/20 00:30 Dose: 0.5 mg/min, 17.3 mls/hr Documented by: Vancomycin/PEG/NADA/Lysine/Water (Vancocin) 1,500 mg in 300 mls @ 200 mls/hr IV Q18H [facility] Last Infusion: 10/09/20 15:48 Dose: Infused Documented by: Albumin Human (Albumin) 12.5 gm in 50 mls @ 60 mls/hr IV PRN PRN PRN Reason: Hypotension and/or symptomatic Last Admin: 10/09/20 19:12 Dose: 60 mls/hr Documented by: Imipenem/Cilastatin Sodium 250 (mg/ Sodium Chloride) 100 mls @ 200 mls/hr IV Q6H [facility]; Protocol Last Admin: 10/10/20 03:20 Dose: 200 mls/hr Documented by: Albumin Human (Albumin) 12.5 gm in 50 mls @ 60 mls/hr IV PRN PRN PRN Reason: Hypotension and/or symptomatic Vasopressin 100 unit/ Sodium (Chloride) 100 mls @ 0 mls/hr IV .Q0M [facility]; Protocol Last Titration: 10/10/20 07:00 Dose: 0.04 unit/min, 2.4 mls/hr Documented by: Insulin Aspart (Insulin Aspart 100 Unit/1 Ml) 0 unit SUBCUT Q6H [facility]; Protocol Last Admin: 10/10/20 06:17 Dose: 4 unit Documented by: Insulin Glargine (Insulin Glargine 100 Units/1 Ml) 10 unit SUBCUT BID [facility] Last Admin: 10/09/20 18:16 Dose: 10 unit Documented by: Zinc Gluconate (Zinc Gluconate 50 Mg Tablet) 50 mg PO DAILY [facility] Last Admin: 10/09/20 08:28 Dose: 50 mg Documented by: Vitals/I&O/Wt Last Vital Signs Temp 97.5 F L 10/10/20 04:00 Pulse 89 10/10/20 07:00 Resp 26 H 10/10/20 05:38 BP 165/74 10/10/20 07:00 Pulse Ox 89 L 10/10/20 07:00 10/09/20 10/10/20 10/10/20 22:59 06:59 14:59 Intake Total 1874.883 / 2331.116 846.555 / 3177.671 183.545 / 183.545 Output Total 200 / 200 Balance 1874.883 / 2331.116 646.555 / 2977.671 183.545 / 183.545 Weight last 48 hrs Weight 103.238 kg Weight 102.693 kg Physical Exam Narrative: EXAM NARRATIVE: intubated, sedated. vasopressin, levo, propofol, versed, fentanyl vent -PC 30/ fio2 100%, PEEP 14, RR14 heent- nc/at neck supple lungs b/l crackles and wheezes heart reg, no m/r/g appreciated abd soft +BS ext + b/l leg edema neuro- sedated, per nurse- no gag or corneal reflex. no cough exam by RN- telehealth visit Urinary Catheter Management^: Noel: Cath Placed During This Visit: yes Reason for Continuing Indwelling Catheter: Accurate Measurement of Urinary Output in Critically Ill Patients Urinary Catheter Date of Insertion: 09/27/20 Urinary Catheter Time of Insertion: 20:00 Data : 10/10/20 03:00 10/10/20 03:00 A&P Additional A&P Information 1. NADIYA - ischemic/septic ATN - s/p HD 10/06, 10/07, 10/08, and 10/09. -pt is very ill, will attempt HD. However, as he is on 2 pressers, will be difficult- no fluid removal on HD. if bp drops further, will have to stop HD Dose medications for GFR less than 15 on dialysis Strict ins and outs, avoid the usual nephrotoxic agents 2. Vent dependent respiratory failure Secondary to Covid pneumonitis plus superinfection with bacteria. Combination antibiotics, steroids, Abx FiO2 100%, PEEP 14 - not able to ventilate him - 7. Mgmt per ICU team 3. Lytes -hyponatremia from pna and NADIYA -hyperphosphatemia- from NADIYA 4. a flutter 5. staph pneumonia and bacteremia 6. Very poor prognosis w/ COVID-19+ SARS PNA, staph bacteremia, hypercapneic resp acidosis, VDRF, poor MS- no corneal, gag reflexes, ands NADIYA and on 2 pressers- will discuss w/ hospitalist- recommend comfort care, as not improving w/ Vent, pressers, meds, HD. Exam and interview performed with aid of bedside RN using telemedicine Time spent 30 min Attestations Medical Necessity Statement*: covid-19, nadiya, vdrf, hypercapneic resp acidosis Time Spent in Patient Care: 16 - 35 minutes Coding Level of Care Code Acute Public Interviewer for Meeta Levy
[2020-10-10] MEDS: zinc gluconate 50 mg Tablet PO (08:44)
[2020-10-10] MEDS: insulin glargine 100 units/1 mL 10 UNIT SUBCUT (08:44)
--- NOTE | 2020-10-10 09:21 | PC.CHAP ---
Pastoral Care Encounter/Spiritual Assessment Type of Contact [] Declined hogshead roller visit [] Patient/Family/Request visit [] Outpatient visit [] Follow-up visit [] Physician referral [] Code/Alert [] Routine visit [] Staff referral [] Actively dying [] Patient sleeping [] Family support [] [] Out of room [] Palliative care [] [] Receiving care in room [] Pre-surgical visit [] Trauma [] Long length of stay [x] ICU visit [] Other: Relational/Emotional Strength [] Patient feels connected with others/family/visitors/staff [] Distress [] Loneliness/isolation [] Abandonment Spirituality of Patient [] Person of Beatriz [] Attends Mosque of their Beatriz [] Believes in Prayer [] Reads Bible or Druze materials [] There are Spiritual issues to be addressed Social Work Msw Interventions [x] Prayer [] Active listening [] Non-anxious presence [] Spiritual/emotional support [] Crisis/trauma care [] Spiritual counseling [] Bereavement support [] Provided bereavement packet [] Provided Bible/devotional materials [] Provided toy/stuffed animal, coloring book to patient or family member [] Provided Communion [] Anointing/[place] [] Salvation [x] Completed spiritual assessment [] Other: Impact on Illness or Injury [] Angry [] Fearful [] Anxious [] Often cries [] Exhaustion [] Unable to work [] Unable to attend temple [] Unable to walk/stand [] Unable to read [] Unable to drive [] Unable to eat/drink [] Unable to sleep [] Unable to be with family [] Patient intubated [] Other: Summary Time spent with patient
--- NOTE | 2020-10-10 11:02 | PC.SOCIAL ---
IMM Update Pg. 2 of IMM not updated today, nursing staff reports patient is transitioning to comfort measures.
[2020-10-10] MEDS: norepinephrine 8 MG in dextrose 5 % 500 ML 83.8 MG IV (12:36)
--- NOTE | 2020-10-10 14:10 | PC.NURSE ---
After phone conversation with Patients daughter Megan where she stated that the families wishes were to move to comfort care we extubated patient at 1400 to comfort care. TOD was at 1407. This was confirmed by Nam ROWELL and myself. Dr was notified, family was notified, and MTS was called within appropriate time.
[2020-10-10 14:50] LABS: Hepatitis B Surface Antigen Non-Reactive (Nonreactive)
--- NOTE | 2020-10-10 16:37 | PC.NURSE ---
Patient was prepped for the home. Patient was placed on the home gurney and was released to them at 1606.
--- NOTE | 2020-10-10 17:00 | PC.NURSE ---
Fentanyl gtt and versed gtt were discarded in the sharps container. Jena Paige RN witnessed the waste. amounts were 43ml of Fentanyl and 39ml of Versed.
[2020-10-10 21:23] LABS: Glucose Point of Care 185 mg/dL (70-110)
--- NOTE | 2020-10-10 21:41 | P.DES_ITS ---
Discharge Providers DDS Date of Admission: 09/27/20 15:04 Date Summary Completed: 10/10/20 Attending Provider at Admission: Breanna Rodriguez Time of : 14:07 Attending Provider at Discharge: Breanna ROCK Diagnoses Hospital Diagnoses (1) Acute respiratory failure with hypoxia: (2) Pneumonia due to COVID-19 virus: (3) Dyslipidemia: (4) Diabetes mellitus: Qualifiers: Diabetes mellitus complication status: with other specified complication Diabetes mellitus ocean transportation intermediary insulin use: unspecified ocean transportation intermediary insulin use status Diabetes mellitus type: type 2 Qualified Code(s): E11.69 - Type 2 diabetes mellitus with other specified complication (5) Hypertension: Qualifiers: Hypertension type: unspecified Qualified Code(s): I10 - Essential (primary) hypertension Summary Date and Time of Date of : 10/10/20 Time of : 14:07 Summary Summary: 65-year-old male with a past medical history significant for hypertension, dyslipidemia and diabetes mellitus who was recently diagnosed with COVID-19 infection requiring [facility] 09/26 for hypoxic respiratory failure. patient was reported to have oxygen saturation in low 70s for which he was placed on 4 L however in the next 24 hours he progressively worsened. Noted to have increased work of breathing and high-flow O2 requirements. He was initiated on remdesivir of which she had received a loading dose on 09/26 and 2nd day dose n 09/27 per tranfering physician. Bravo was also empirically started on azithromycin and cefdinir. Chest x-ray had showed findings consistent with COVID-19 pneumonia. And laboratory workup in review appeared to be stable except D-dimer which was above 7. He was empirically started on Eliquis 5 mg oral twice daily. Due to progressive decline patient was transferred to [facility] viral ICU. Upon arrival patient was found to be hypoxic ( sats in 70s) and in respiratory distress. He was immediately placed on BiPAP with Fio2 of 100% after which he gradually improved. arterial blood gases were obtained which showed a pH of 7.42, pCO2 of 31.9, PO2 of 51.8 and bicarb 20.5. Laboratory workup on arrival was repeated which showed a WBC of 7.0, hemoglobin 12.8, hematocrit 38.9 and a platelet count of 151. sodium 130, potassium 4.0, chloride 95, bicarb 20, BUN 13 and creatinine is 0.7. Lactic acid of 1.7. LFTs were within normal limits. Procalcitonin was 0.55. Shortly after arrival patient was noted to have respiratory failure with BiPAP requiring 100% FiO2. Due to this patient was intubated and placed on mechanical ventilation. Pulmonary medicine was consulted. Patient was noted to have severe adult respiratory distress syndrome likely from COVID-19 pneumonia. He was initiated on deep sedation protocol and subsequently started on NBM, initially with nimbex however to do low supply this was changed to rocoronium. Due to high dose requirement of sedatives to maintain deep sedation ( RASS -4) while on NMB he was note to have hypotensive episodes. Central line was placed and he was started on levophed. Patient completed prone position x3 days. Continued to have high FiO2 requirements throughout hospitalization. Patient completed remdesivir. Subsequently started to have fevers after which patient was found to have secondary bacterial infection. Cultures were drawn. 1228 blood cultures had appeared to be positive for staphylococcal epidermidis in all sets. Repeat cultures on 10/03 had shown the same. Patient was continued on broad- spectrum antibiotics. despite broad-spectrum antibiotics patient continued to have fevers. Unfortunately his hospitalization was complicated with acute renal failure with creatinine increasing from 0.7 to 3.2. nephrology was consulted. Initially thought have volume depletion for which patient was started on IV fluids. Maintain adequate urine output. Due to progressive acidosis and multiple other fractures patient was found to have refractory hyperkalemia. Temporary dialysis catheter was placed and patient was initiated on dialysis. Initially tolerated few episodes however due to shock /hypotension was unable to be dialyzed. Patient was weaned off sedation however did not have any response. Due to progressive decline despite extensive measures family had decided to proceed with comfort care measures and terminally wean. Patient shortly after extubation on 10/10/2020 at 1407. Additional Data Confirmation of as documented by pronouncing clinician: no pulse, no respirations, no heart sounds and pupils fixed and dilated Family: contacted Additional persons at bedside: nursing staff Attending/PCP notified?: I am attending Autopsy requested?: No Advance directives?: No Hospice patient?: No Discharge Plan Discharge Patient Disposition: At Medical Facility Prescriptions: No Action losartan 50 mg tablet 50 mg PO DAILY RF: 0 atorvastatin 10 mg tablet 10 mg PO DAILY RF: 0 amlodipine 10 mg tablet 10 mg PO DAILY RF: 0 metformin 1,000 mg tablet 1,000 mg PO BID RF: 0 methylprednisolone 4 mg tablets,dose pack See Rx Instructions .ROUTE .COMPLEX RF: 0 DS Attestations Time Spent in /Discharge Care*: greater than 30 min Quality - AMI: AMI present?: No Quality - Stroke: CVA present?: No Quality - VTE: VTE present?: No Coding Level of Care Code Acute Tooth Clerk for [facility] Fwd Diagnoses Acute respiratory failure with hypoxia J96.01 Pneumonia due to COVID-19 virus U07.1; J12.89 Dyslipidemia E78.5 Diabetes mellitus E11.69 Diabetes mellitus complication status: with other specified complication Diabetes mellitus ocean transportation intermediary insulin use: unspecified ocean transportation intermediary insulin use status Diabetes mellitus type: type 2 Hypertension I10 Hypertension type: unspecified
[2020-10-12 19:08] LABS: Pneumocystis Jirovecii Carinii NOT DETECTED; Pneumocystis Jirovecii Source BAL
[2020-10-14 04:14] LABS: Pneumocystis Jirovecii DNA PCR NO DNA DETECTED copies/mL; Pneumocystis Jirovecii Source BAL
== END 2020-10-10 16:50 | disposition expired | DRG 207 ==
PROVIDERS: Internal Medicine; Internal Medicine Nephrology; Internal Medicine Pulmonary Disease; Surgery; Admitting Provider Hospitalist; Visit Provider Hospitalist
DX: U07.1 COVID-19 (principal); R65.21 Severe sepsis with septic shock; J12.89 Other viral pneumonia; J15.211 Pneumonia due to Methicillin susceptible Staphylococcus aureus; J96.01 Acute respiratory failure with hypoxia; N17.0 Acute kidney failure with tubular necrosis; A41.01 Sepsis due to Methicillin susceptible Staphylococcus aureus; E87.4 Mixed disorder of acid-base balance; E87.1 Hypo-osmolality and hyponatremia; M62.82 Rhabdomyolysis; I47.1 Supraventricular tachycardia; I48.92 Unspecified atrial flutter; I10 Essential (primary) hypertension; E78.5 Hyperlipidemia, unspecified; E11.65 Type 2 diabetes mellitus with hyperglycemia; T38.0X5A Adverse effect of glucocorticoids and synthetic analogues, initial encounter; I95.9 Hypotension, unspecified; E87.6 Hypokalemia
CPT/HCPCS: 12345; 36415; 36416; 36592; 36600; 51702; 71045; 74018; 76770; 80048; 80051; 80053; 80202; 81001; 82009; 82330; 82550; 82570; 82728; 82803; 82805; 82962; 83605; 83615; 83735; 83880; 83935; 84100; 84145; 84300; 85007; 85025; 85378; 85610; 86140; 87040; 87070; 87077; 87086; 87186; 87205; 87281; 87340; 87799; 90935; 93005; 93306; 94002; 94003; 94640; 94660; 94669; 94799; 96372; 97110; 97163; C1751; C1752; J0153; J0282; J0610; J0743; J1100; J1644; J1650; J1720; J1815 ×2; J1940; J2250; J2543; J2704; J3010; J3370; J3490; J7030; J7050; J7060; J7611; P9047; Q3014